=== PATIENT | male | born 1955 | race Caucasian/White ===

== ENCOUNTER → 2020-08-04 07:36 | Outpatient (BNVA) | payer BC, SELFPAY | PROVIDERS: PCP Internal Medicine; Referring Provider Internal Medicine; Visit Provider Internal Medicine | DX: Z13.89 Encounter for screening for other disorder (principal) ==

== ENCOUNTER 2020-08-25 09:10 | Outpatient (REF) | payer BC, SELFPAY ==
[2020-08-25 10:31] LABS: Estimated Average Glucose 148 mg/dL; Hemoglobin A1c % 6.8 %
[2020-08-25 10:43] LABS: Alanine Aminotransferase 35 U/L (0-40); Albumin Level 4.6 g/dL (3.5-5.0); Alkaline Phosphatase 45 U/L (39-117); Anion Gap 15 (12-20); Aspartate Amino Transferase 25 U/L (5-37); Bilirubin Total 0.8 mg/dL (0.0-1.0); Blood Urea Nitrogen 16 mg/dL (9-16); Calcium 9.5 mg/dL (8.4-10.2); Carbon Dioxide 25 mmol/L (22-29); Chloride 102 mmol/L (96-108); Cholesterol 173 mg/dL; Estimated Glomerular Filt Rate > 60; Glucose Random 110 mg/dL (60-115); HDL Cholesterol 54 mg/dL; LDL Cholesterol Calculated 92 mg/dl; Potassium 4.3 mmol/l (3.3-5.1); Sodium 138 mmol/L (135-145); Total Protein 7.6 g/dL (6.5-8.0); Triglycerides 135 mg/dL
[2020-08-25 10:53] LABS: Vitamin D 25-OH Total 37.4 ng/mL (>30)
[2020-08-25 11:33] LABS: Creatinine Urine 92.18 mg/dL; Microalbum/Creatinine Ratio Ur 11.9 ug/mg cr
[2020-08-26 08:06] LABS: LDL Cholesterol Direct 94 mg/dL (<100)
== END 2020-08-25 09:11 | disposition home or self-care (01) ==
LOC: HO.LAB 09:10
PROVIDERS: Absent Provider Internal Medicine; PCP Internal Medicine; Visit Provider Internal Medicine
DX: E11.65 Type 2 diabetes mellitus with hyperglycemia (principal); E67.3 Hypervitaminosis D
CPT/HCPCS: 80053; 80061; 82043; 82306; 83036; 83721

== ENCOUNTER 2020-10-04 06:51 | Outpatient (REF) | payer BC, SELFPAY ==
[2020-10-04 07:40] LABS: MANUAL DIFF FLAG NO
[2020-10-04 07:46] LABS: Basophils Percent Auto 0.7 % (0-2); Eosinophils Absolute Auto 0.2 X10*3/uL (0.0-0.4); Eosinophils Percent Auto 3.8 % (0-4); Hematocrit 43.6 % (42-52); Hemoglobin 14.7 g/dl (14.0-18.0); Imm Gran Abs Auto 0.02 X10*3/uL (0.00-0.03); Imm Gran Pct Auto 0.3 % (0.0-0.4); Lymphocytes Percent Auto 17.4 % (20-40); Mean Corpuscular HGB Conc 33.7 g/dl (31.0-36.0); Mean Corpuscular Hemoglobin 31.3 pg (27.0-33.0); Mean Platelet Volume 9.8 fL (9.4-12.4); Monocytes Absolute Auto 0.6 X10*3/uL (0.1-1.2); Monocytes Percent Auto 9.4 % (2-11); Neutrophils Percent Auto 68.4 % (45-73); Platelet Count 165 X10*3/uL (160-400); Red Blood Count 4.69 X10*6/uL (4.60-5.80); White Blood Count 5.9 X10*3/uL (4.8-10.8)
[2020-10-04 07:53] LABS: Glucose Urine UA >=1000 MG/DL (NEG); Leukocyte Esterase Urine NEG (NEG); Nitrite Urine NEG (NEG); Specific Gravity - Urine >= 1.030 (1.005-1.025); Urine Blood NEG (NEG); Urine Ketones NEG (NEG); Urine Protein NEG (NEG-TRACE)
[2020-10-04 07:57] LABS: Estimated Average Glucose 134 mg/dL; Hemoglobin A1c % 6.3 %
[2020-10-04 08:16] LABS: Appearance Urine CLEAR; Color Urine YELLOW
[2020-10-04 08:29] LABS: RBC Urine 0 /HPF (0); Squamous Epithelial Cell Urine TRACE /LPF; WBC Urine 0 /HPF (0-4)
[2020-10-04 08:33] LABS: Cholesterol 168 mg/dL; HDL Cholesterol 62 mg/dL; LDL Cholesterol Calculated 88 mg/dl; Triglycerides 92 mg/dL
[2020-10-04 08:37] LABS: Alanine Aminotransferase 21 U/L (0-40); Albumin Level 4.6 g/dL (3.5-5.0); Alkaline Phosphatase 43 U/L (39-117); Anion Gap 12 (12-20); Aspartate Amino Transferase 15 U/L (5-37); Bilirubin Total 0.7 mg/dL (0.0-1.0); Blood Urea Nitrogen 18 mg/dL (9-16); Calcium 9.5 mg/dL (8.4-10.2); Carbon Dioxide 28 mmol/L (22-29); Chloride 103 mmol/L (96-108); Estimated Glomerular Filt Rate > 60; Glucose Random 133 mg/dL (60-115); Potassium 4.2 mmol/L (3.3-5.1); Sodium 139 mmol/L (135-145); Total Protein 7.5 g/dL (6.5-8.0)
[2020-10-04 08:41] LABS: Creatinine Urine 98.69 mg/dL; Microalbum/Creatinine Ratio Ur 19.2 ug/mg cr
[2020-10-04 08:44] LABS: Vitamin D 25-OH Total 40.2 ng/mL (>30)
[2020-10-04 09:04] LABS: Prostate Specific Antigen Scr 0.36 ng/mL (<0.05-4.0)
[2020-10-04 10:21] LABS: Reflex LDLD? No
== END 2020-10-04 06:52 | disposition home or self-care (01) ==
LOC: HO.LAB 06:51
PROVIDERS: Absent Provider Internal Medicine; PCP Internal Medicine; Visit Provider Internal Medicine
DX: Z00.00 Encounter for general adult medical examination without abnormal findings (principal); E67.3 Hypervitaminosis D; E11.65 Type 2 diabetes mellitus with hyperglycemia; E78.00 Pure hypercholesterolemia, unspecified
CPT/HCPCS: 36415; 80053; 80061; 81001; 81003; 82043; 82306; 83036; 84153; 85025

== ENCOUNTER → 2020-11-10 07:14 | Outpatient (BNVA) | payer BC, SELFPAY | PROVIDERS: PCP Internal Medicine; Visit Provider Internal Medicine | DX: E11.65 Type 2 diabetes mellitus with hyperglycemia (principal); E78.5 Hyperlipidemia, unspecified; E67.3 Hypervitaminosis D; I10 Essential (primary) hypertension; Z79.4 Long term (current) use of insulin; Z71.3 Dietary counseling and surveillance | CPT/HCPCS: 82947 ==

== ENCOUNTER 2021-04-01 10:33 | Outpatient (REF) | payer BC, SELFPAY ==
[2021-04-01 11:05] LABS: Alanine Aminotransferase 36 U/L (0-40); Albumin Level 4.3 g/dL (3.5-5.0); Alkaline Phosphatase 47 U/L (39-117); Aspartate Amino Transferase 21 U/L (5-37); Bilirubin Direct 0.3 mg/dL (0.0-0.5); Bilirubin Total 0.8 mg/dL (0.0-1.0); Cholesterol 149 mg/dL; HDL Cholesterol 47 mg/dL; LDL Cholesterol Calculated 60 mg/dl; Total Protein 7.3 g/dL (6.5-8.0); Triglycerides 212 mg/dL
[2021-04-01 11:56] LABS: Reflex LDLD? No
== END 2021-04-01 10:34 | disposition home or self-care (01) ==
LOC: HO.LNP 10:33
PROVIDERS: Visit Provider Internal Medicine
DX: E11.9 Type 2 diabetes mellitus without complications (principal); E78.00 Pure hypercholesterolemia, unspecified
CPT/HCPCS: 80061; 80076

== ENCOUNTER → 2021-07-11 08:21 | Outpatient (BNVA) | payer BC, SELFPAY | PROVIDERS: PCP Internal Medicine; Visit Provider Internal Medicine | DX: E11.65 Type 2 diabetes mellitus with hyperglycemia (principal); E78.5 Hyperlipidemia, unspecified; E67.3 Hypervitaminosis D; I10 Essential (primary) hypertension | CPT/HCPCS: 82947; 83036 ==

== ENCOUNTER 2021-07-12 09:23 | Outpatient (REF) | payer BC, SELFPAY ==
[2021-07-12 11:13] LABS: Microalbum/Creatinine Ratio Ur 13.5 ug/mg cr
[2021-07-12 11:26] LABS: Alanine Aminotransferase 39 U/L (0-40); Albumin Level 4.6 g/dL (3.5-5.0); Alkaline Phosphatase 45 U/L (39-117); Anion Gap 13 (12-20); Aspartate Amino Transferase 22 U/L (5-37); Bilirubin Total 0.7 mg/dL (0.0-1.0); Blood Urea Nitrogen 12 mg/dL (9-16); Calcium 9.4 mg/dL (8.4-10.2); Carbon Dioxide 25 mmol/L (22-29); Chloride 103 mmol/L (96-108); Cholesterol 136 mg/dL; Estimated Glomerular Filt Rate > 60; Glucose Random 127 mg/dL (60-115); HDL Cholesterol 46 mg/dL; LDL Cholesterol Calculated 60 mg/dl; Potassium 4.1 mmol/L (3.3-5.1); Sodium 137 mmol/L (135-145); Total Protein 7.3 g/dL (6.5-8.0); Triglycerides 151 mg/dL
[2021-07-12 11:36] LABS: Vitamin D 25-OH Total 33.8 ng/mL (>30)
[2021-07-13 11:07] LABS: LDL Cholesterol Direct 66 mg/dL (<100)
== END 2021-07-12 09:24 | disposition home or self-care (01) ==
LOC: HO.LAB 09:23
PROVIDERS: PCP Internal Medicine; Referring Provider Internal Medicine; Visit Provider Internal Medicine
DX: E11.65 Type 2 diabetes mellitus with hyperglycemia (principal); E67.3 Hypervitaminosis D
CPT/HCPCS: 36415; 80053; 80061; 82043; 82306; 83721

== ENCOUNTER 2021-10-10 10:23 | Outpatient (REF) | payer BC, SELFPAY ==
[2021-10-10 10:45] LABS: Estimated Average Glucose 126 mg/dL
[2021-10-10 10:53] LABS: Alanine Aminotransferase 25 U/L (0-40); Albumin Level 4.4 g/dL (3.5-5.0); Alkaline Phosphatase 42 U/L (39-117); Aspartate Amino Transferase 16 U/L (5-37); Bilirubin Direct 0.3 mg/dL (0.0-0.5); Bilirubin Total 0.9 mg/dL (0.0-1.0); Cholesterol 141 mg/dL; Glucose Fasting 132 mg/dL (60-99); HDL Cholesterol 50 mg/dL; LDL Cholesterol Calculated 58 mg/dl; Total Protein 7.3 g/dL (6.5-8.0); Triglycerides 169 mg/dL
== END 2021-10-10 10:24 | disposition home or self-care (01) ==
LOC: HO.LNP 10:23
PROVIDERS: PCP Internal Medicine; Visit Provider Internal Medicine
DX: E78.00 Pure hypercholesterolemia, unspecified (principal); E11.9 Type 2 diabetes mellitus without complications
CPT/HCPCS: 80061; 80076; 82947; 83036

== ENCOUNTER → 2021-10-19 07:14 | Outpatient (BNVA) | payer BC, SELFPAY | PROVIDERS: PCP Internal Medicine; Visit Provider Internal Medicine | DX: E11.65 Type 2 diabetes mellitus with hyperglycemia (principal); E78.5 Hyperlipidemia, unspecified; I10 Essential (primary) hypertension | CPT/HCPCS: 82947 ==

== ENCOUNTER 2021-11-24 10:32 | Outpatient (REF) | payer BC, SELFPAY ==
[2021-11-24 10:35] LABS: MANUAL DIFF FLAG NO
[2021-11-24 11:04] LABS: Basophils Absolute Auto 0.1 X10*3/uL (0.0-0.2); Basophils Percent Auto 0.9 % (0-2); Eosinophils Absolute Auto 0.3 X10*3/uL (0.0-0.4); Hematocrit 43.5 % (42.0-52.0); Hemoglobin 14.3 g/dl (14.0-18.0); Imm Gran Abs Auto 0.05 X10*3/uL (0.00-0.03); Imm Gran Pct Auto 0.9 % (0.0-0.4); Lymphocytes Absolute Auto 1.3 X10*3/uL (1.2-4.9); Lymphocytes Percent Auto 23.6 % (20-40); Mean Corpuscular HGB Conc 32.9 g/dl (31.0-36.0); Mean Corpuscular Hemoglobin 31.2 pg (27.0-33.0); Mean Platelet Volume 10.5 fL (9.4-12.4); Monocytes Absolute Auto 0.6 X10*3/uL (0.1-1.2); Monocytes Percent Auto 11.3 % (2-11); Neutrophils Absolute Auto 3.2 x10*3/uL (2.0-8.3); Neutrophils Percent Auto 58.3 % (45-73); Platelet Count 148 X10*3/uL (160-400); Red Blood Count 4.58 X10*6/uL (4.60-5.80); Red Cell Distribution Width 12.3 % (11.0-16.0); White Blood Count 5.6 X10*3/uL (4.8-10.8)
[2021-11-24 11:16] LABS: Alanine Aminotransferase 36 U/L (0-40); Albumin Level 4.4 g/dL (3.5-5.0); Alkaline Phosphatase 44 U/L (39-117); Anion Gap 15 (12-20); Aspartate Amino Transferase 20 U/L (5-37); Bilirubin Total 0.6 mg/dL (0.0-1.0); Blood Urea Nitrogen 14 mg/dL (9-16); Calcium 9.4 mg/dL (8.4-10.2); Carbon Dioxide 25 mmol/L (22-29); Chloride 103 mmol/L (96-108); Estimated Glomerular Filt Rate > 60; Glucose Fasting 142 mg/dL (60-99); Potassium 4.3 mmol/L (3.3-5.1); Sodium 139 mmol/L (135-145); Total Protein 7.3 g/dL (6.5-8.0)
[2021-11-24 11:18] LABS: Appearance Urine CLEAR; Color Urine YELLOW; Glucose Urine UA NEG (NEG); Leukocyte Esterase Urine NEG (NEG); Nitrite Urine NEG (NEG); PH 5.5 (5.0-8.0); Specific Gravity - Urine >= 1.030 (1.005-1.025); Urine Blood NEG (NEG); Urine Ketones NEG (NEG); Urine Protein NEG (NEG-TRACE)
[2021-11-24 11:39] LABS: Prostate Specific Antigen 0.44 ng/mL (<0.05-4.0)
[2021-11-24 11:54] LABS: Creatinine Urine 90.65 mg/dL; Microalbum/Creatinine Ratio Ur 18.7 ug/mg cr
== END 2021-11-24 10:33 | disposition home or self-care (01) ==
LOC: HO.LNP 10:32
PROVIDERS: Visit Provider Internal Medicine
DX: Z00.00 Encounter for general adult medical examination without abnormal findings (principal); Z12.5 Encounter for screening for malignant neoplasm of prostate; E11.9 Type 2 diabetes mellitus without complications
CPT/HCPCS: 80053; 81003; 82043; 84153; 85025

== ENCOUNTER 2022-02-02 06:55 | Outpatient (REF) | payer BC, SELFPAY ==
[2022-02-02 07:31] LABS: Estimated Average Glucose 134 mg/dL; Hemoglobin A1c % 6.3 %
[2022-02-02 07:48] LABS: Alanine Aminotransferase 30 U/L (0-40); Albumin Level 4.5 g/dL (3.5-5.0); Alkaline Phosphatase 53 U/L (39-117); Anion Gap 13 (12-20); Aspartate Amino Transferase 20 U/L (5-37); Blood Urea Nitrogen 12 mg/dL (9-16); Calcium 9.5 mg/dL (8.4-10.2); Carbon Dioxide 27 mmol/L (22-29); Chloride 102 mmol/L (96-108); Estimated Glomerular Filt Rate > 60; Glucose Random 114 mg/dL (60-115); Sodium 138 mmol/L (135-145); Total Protein 7.4 g/dL (6.5-8.0)
[2022-02-02 08:31] LABS: Vitamin B12 492 pg/mL (200-900)
== END 2022-02-02 06:56 | disposition home or self-care (01) ==
LOC: HO.LAB 06:55
PROVIDERS: PCP Internal Medicine; Visit Provider Internal Medicine
DX: E11.65 Type 2 diabetes mellitus with hyperglycemia (principal)
CPT/HCPCS: 36415; 80053; 82607; 83036

== ENCOUNTER → 2022-05-08 07:51 | Outpatient (BNVA) | payer BC, SELFPAY | PROVIDERS: PCP Internal Medicine; Visit Provider Internal Medicine | DX: E11.65 Type 2 diabetes mellitus with hyperglycemia (principal); E78.5 Hyperlipidemia, unspecified; I10 Essential (primary) hypertension | CPT/HCPCS: 82947; 83036 ==

== ENCOUNTER 2022-05-25 11:56 | Outpatient (REF) | payer BC, SELFPAY ==
[2022-05-25 12:48] LABS: Alanine Aminotransferase 28 U/L (0-40); Albumin Level 4.5 g/dL (3.5-5.0); Alkaline Phosphatase 60 U/L (39-117); Aspartate Amino Transferase 18 U/L (5-37); Bilirubin Direct 0.2 mg/dL (0.0-0.5); Bilirubin Total 0.7 mg/dL (0.0-1.0); Cholesterol 178 mg/dL; Glucose Fasting 144 mg/dL (60-99); HDL Cholesterol 49 mg/dL; LDL Cholesterol Calculated 81 mg/dl; Total Protein 7.3 g/dL (6.5-8.0); Triglycerides 240 mg/dL
[2022-05-25 12:51] LABS: Estimated Average Glucose 134 mg/dL; Hemoglobin A1c % 6.3 %
[2022-05-25 14:40] LABS: Reflex LDLD? No
== END 2022-05-25 11:57 | disposition home or self-care (01) ==
LOC: HO.LNP 11:56
PROVIDERS: Visit Provider Internal Medicine
DX: E11.9 Type 2 diabetes mellitus without complications (principal); E78.00 Pure hypercholesterolemia, unspecified
CPT/HCPCS: 80061; 80076; 82947; 83036

== ENCOUNTER 2022-11-21 10:49 | Outpatient (REF) | payer BC, SELFPAY ==
[2022-11-21 10:53] LABS: MANUAL DIFF FLAG NO
[2022-11-21 11:16] LABS: Basophils Absolute Auto 0.1 X10*3/uL (0.0-0.2); Basophils Percent Auto 0.8 % (0-2); Eosinophils Absolute Auto 0.3 X10*3/uL (0.0-0.4); Eosinophils Percent Auto 4.4 % (0-4); Hematocrit 42.3 % (42.0-52.0); Hemoglobin 14.2 g/dl (14.0-18.0); Imm Gran Abs Auto 0.02 X10*3/uL (0.00-0.03); Imm Gran Pct Auto 0.3 % (0.0-0.4); Lymphocytes Absolute Auto 1.6 X10*3/uL (1.2-4.9); Lymphocytes Percent Auto 24.1 % (20-40); Mean Corpuscular HGB Conc 33.6 g/dl (31.0-36.0); Mean Corpuscular Hemoglobin 31.3 pg (27.0-33.0); Mean Corpuscular Volume 93.2 fL (80.0-98.0); Mean Platelet Volume 10.1 fL (9.4-12.4); Monocytes Absolute Auto 0.8 X10*3/uL (0.1-1.2); Monocytes Percent Auto 11.4 % (2-11); Neutrophils Absolute Auto 3.9 x10*3/uL (2.0-8.3); Platelet Count 165 X10*3/uL (160-400); Red Blood Count 4.54 X10*6/uL (4.60-5.80); Red Cell Distribution Width 12.2 % (11.0-16.0); White Blood Count 6.6 X10*3/uL (4.8-10.8)
[2022-11-21 11:18] LABS: Appearance Urine Clear; Color Urine Yellow; Glucose Urine UA >=1000 mg/dL (Negative); Leukocyte Esterase Urine Negative (Negative); Nitrite Urine Negative (Negative); PH 5.5 (5.0-9.0); Specific Gravity - Urine >= 1.030 (1.005-1.025); UMIC TRIGGER UACC YES; Urine Blood Negative (Negative); Urine Ketones Trace mg/dL (Negative); Urine Protein Negative (Neg-Trace)
[2022-11-21 11:24] LABS: Bacteria Urine None Seen (None Seen); Hyaline Casts Urine 0-2 /LPF (0-2); RBC Urine 0-2 /HPF (0-2); Squamous Epithelial Cell Urine 0-2 /HPF (0-2); WBC Urine 0-5 /HPF (0-5)
[2022-11-21 12:02] LABS: Alanine Aminotransferase 31 U/L (0-40); Albumin Level 4.1 g/dL (3.5-5.0); Alkaline Phosphatase 49 U/L (39-117); Anion Gap 13 (12-20); Aspartate Amino Transferase 20 U/L (5-37); Bilirubin Total 0.7 mg/dL (0.0-1.0); Blood Urea Nitrogen 14 mg/dL (9-16); Calcium 9.2 mg/dL (8.4-10.2); Carbon Dioxide 28 mmol/L (22-29); Chloride 104 mmol/L (96-108); Estimated Glomerular Filt Rate > 60; Glucose Fasting 96 mg/dL (60-99); Potassium 4.2 mmol/L (3.3-5.1); Sodium 141 mmol/L (135-145); Total Protein 6.6 g/dL (6.5-8.0)
[2022-11-21 12:14] LABS: Estimated Average Glucose 131 mg/dL; Hemoglobin A1c % 6.2 %
[2022-11-21 12:21] LABS: PSA,Total (Free>4and<10) 0.47 ng/mL (0.00-4.00)
== END 2022-11-21 10:50 | disposition home or self-care (01) ==
LOC: HO.LNP 10:49
PROVIDERS: Visit Provider Internal Medicine
DX: Z00.00 Encounter for general adult medical examination without abnormal findings (principal); Z12.5 Encounter for screening for malignant neoplasm of prostate; E11.9 Type 2 diabetes mellitus without complications; E78.00 Pure hypercholesterolemia, unspecified
CPT/HCPCS: 80053; 81001; 83036; 84153; 85025

== ENCOUNTER → 2023-02-21 08:45 | Outpatient (BNVA) | payer BC, SELFPAY | PROVIDERS: PCP Internal Medicine; Visit Provider Internal Medicine ==

== ENCOUNTER 2023-06-07 10:50 | Outpatient (REF) | payer BC, SELFPAY ==
[2023-06-07 11:48] LABS: Cholesterol 134 mg/dL (<200); HDL Cholesterol 44 mg/dL (>40); LDL Cholesterol Calculated 60 mg/dL (<100); Triglycerides 154 mg/dL (<150)
[2023-06-07 11:51] LABS: Alanine Aminotransferase 21 U/L (0-40); Albumin Level 4.4 g/dL (3.5-5.0); Alkaline Phosphatase 47 U/L (39-117); Aspartate Amino Transferase 16 U/L (5-37); Bilirubin Direct 0.2 mg/dL (0.0-0.5); Bilirubin Total 0.7 mg/dL (0.0-1.0); Glucose Fasting 102 mg/dL (60-99); Total Protein 7.6 g/dL (6.5-8.0)
[2023-06-07 11:59] LABS: Estimated Average Glucose 120 mg/dL; Hemoglobin A1C 140.5924 umol/L; Hemoglobin A1c % 5.8 % (<6.0)
[2023-06-07 12:20] LABS: Reflex LDLD? No
== END 2023-06-07 10:51 | disposition home or self-care (01) ==
LOC: HO.LNP 10:50
PROVIDERS: Visit Provider Internal Medicine
DX: E11.9 Type 2 diabetes mellitus without complications (principal); E78.00 Pure hypercholesterolemia, unspecified
CPT/HCPCS: 80061; 80076; 82947; 83036

== ENCOUNTER 2023-10-08 11:36 | Outpatient (REF) | payer BC, SELFPAY ==
[2023-10-08 14:43] LABS: Creatinine Urine 64.79 mg/dL; Microalbum/Creatinine Ratio Ur 21.6 ug/mg cr (<30)
== END 2023-10-08 11:37 | disposition home or self-care (01) ==
LOC: HO.LAB 11:36
PROVIDERS: PCP Internal Medicine; Visit Provider Internal Medicine Endocrinology, Diabetes & Metabolism
DX: E11.65 Type 2 diabetes mellitus with hyperglycemia (principal)
CPT/HCPCS: 82043; 82570

== ENCOUNTER 2023-10-11 14:46 | Outpatient (AMB) | payer BC, SELFPAY ==
--- NOTE | 2023-10-11 14:49 | MHC.OFFVIS ---
Intake Vital Signs 10/11/23 14:53 Height 5 ft 8 in Weight 234 lb 12.677 oz BMI 35.7 BP 148/70 H Blood Pressure Location Lt brachial Position Sitting Pulse 73 Pulse Source Pulse Oximeter Intake Visit Reasons: dm-lvm Intake Note: Patient presents today to follow up on D2MT. Last Diabetic Eye exam:08/2022 Last Podiatry Visit: 07/2023 Random Glucose: 123 mg/dl HgA1c: Jackscrew Worker Required: No Accompanied by: Self / Same As Patient Allergies No Known Allergies Allergy (Verified 10/11/23 14:56) Medication List - Last Reconciled 10/11/23 by Hubert Hardwick MD ascorbic acid (vitamin C) 1 g PO Q6H atorvastatin 40 mg PO BEDTIME blood sugar diagnostic (OneTouch Verio test strips) Three times a day dapagliflozin propanediol (Farxiga) 10 mg PO DAILY insulin degludec (Tresiba FlexTouch U-100 insulin) 18 units (0.18 mL) subcut DAILY 30 days insulin lispro (Humalog KwikPen (U-100) Insulin) 5 units (0.05 mL) subcut TID 90 days losartan 25 mg PO DAILY mecobalamin (vitamin B12) 1,000 mcg PO DAILY metformin 1,000 mg PO BID omega-3 fatty acids (Fish Oil Concentrate) 1,000 mg PO DAILY pen needle, diabetic (BD Ultra-Fine Micro Pen Needle) 2x daily pen needle, diabetic (BD Jennifer 2nd Gen Pen Needle) As directed tirzepatide (Mounjaro) 5 mg (0.5 mL) subcut QWEEK ubidecarenone-omega 3-vit E 25-150-200 mg-mg-unit (Co N-96-Dpzjxfy E-Fish Oil) 1 cap PO DAILY HPI HPI Comments History of Present Illness Details 68 YO M with PMHx T2DM, HLD who is seen in F/U for T2DM. The patient last saw Dr. Johnson 02/21/2023 Initially diagnosed with T2DM in 1997 on routine screening exam. Was initially started on treatment with Metformin. Began Insulin in 2020. Current regimen Metformin 1000 mg PO BID, Farxiga 10 mg PO daily, Mounjaro 5 mg PO once a week, Tresiba 18 units daily and Humalog 5 units Ac. Checks sugars 1x daily. Average sugar 136 with range -. 100% range Reports low sugars never. Family history of T2DM in Father and Brother. Denies a family history of Pancreatic Cancer. Has eyes checked yearly, last eye exam has appt 11/2023 No retinopathy. Denies Neuropathy, does not see podiatry. No Nephropathy, on Losartan 25 mg PO daily. UAC 18.7 11/24/2021. Has HLD, on Atorvastatin 40 mg PO daily. LDL 58 10/10/2021. Denies CAD. Weight: Stable. Completed CDE. Labs: Laboratory Tests 11/21/22 11/21/22 07:45 07:45 Creatinine 0.88 Estimated GFR > 60 Hemoglobin A1c % 6.2 [facility] Medical History HLD (hyperlipidemia) HTN (hypertension) Hypervitaminosis D T2DM (type 2 diabetes mellitus) Surgical History History of appendectomy History of nasal surgery Family History Father Diabetes Brother Diabetes Social History Household Members: None Alcohol intake: current Patient Tobacco Use Status: Never used Tobacco Physical Exam Vital Signs: Last Vital Signs Pulse 73 10/11/23 14:53 BP 148/70 H 10/11/23 14:53 BMI result Body Mass Index 35.7 Absence of Cushingoid features. Absence of acromegalic features. Neck exam reveals nl size thyroid about 15 gms. No thyroid nodules palpable. No carotid bruits present. Lungs CTA. Heart S1 S2, Reg R/R. No M/R/ G. Skin exam reveals absence of vitiligo or acanthosis nigricans. Abdominal exam reveals Soft NT/ND with NA BS. No organomegaly present. Neck Other: . Extrem Other: Visual exam of foot performed. No ulcerations or open lesions. No onchomycosis, no callouses.Pulses 2 + distally Sensation intact to monofilament exam. Vibratory sensation sensed is intact with 128 Hz tuning fork Results AMB Hemoglobin A1c AMB Hemoglobin A1c 6.6 % Last Edit by RADHA Jackson on 10/11/23 15:13 Results Reviewed Results Reviewed: Laboratory Last Values Glucose (Clinic) 123 mg/dL (60-115) H 10/11/23 15:00 Hgb A1c (Clinic) 6.6 % (4.0-6.0) H 10/11/23 15:04 Assessment & Plan Assessment & Plan (1) T2DM (type 2 diabetes mellitus): Code(s): E11.9 - Type 2 diabetes mellitus without complications Qualifiers: Diabetes mellitus complication status: with hyperglycemia Diabetes mellitus tank terminal gauger insulin use: without custodial use Qualified Code(s): E11.65 - Type 2 diabetes mellitus with hyperglycemia Plan: This 68-year-old white male with a history of type 2 diabetes being treated with metformin, Farxiga, Mounjaro and basal-bolus insulin with excellent glycemic control and no known microvascular or macrovascular complications. Plan is to continue the current therapy. I did iniatiate a Fernando 3 to look for occult hypoglycemia Orders: Orders AMB Hemoglobin A1c 10/11/23 E11.9 - Type 2 diabetes mellitus without complications, [id number] Coding Level of Care Code Est Pt Level 4 (67931) Diagnoses Type 2 diabetes mellitus with hyperglycemia, without long-term current use of insulin E11.65 Diabetes mellitus complication status: with hyperglycemia Diabetes mellitus custodial insulin use: without tank terminal gauger use
[2023-10-11 14:53] VITALS: BP 148/70; PULSE 73; BMI 35.7
[2023-10-11 15:04] LABS: Glucose, Whole Blood 123 mg/dL (60-115)
== END 2023-10-11 15:47 | disposition home or self-care (01) ==
PROVIDERS: PCP Internal Medicine; Visit Provider Internal Medicine Endocrinology, Diabetes & Metabolism
DX: E11.65 Type 2 diabetes mellitus with hyperglycemia (principal)
CPT/HCPCS: 99214

== ENCOUNTER 2023-11-27 11:15 | Outpatient (REF) | payer BC, SELFPAY ==
[2023-11-27 11:20] LABS: MANUAL DIFF FLAG NO
[2023-11-27 11:40] LABS: Basophils Absolute Auto 0.1 X10*3/uL (0.0-0.2); Basophils Percent Auto 0.9 % (0-2); Eosinophils Absolute Auto 0.3 X10*3/uL (0.0-0.4); Eosinophils Percent Auto 4.6 % (0-4); Hematocrit 44.3 % (42.0-52.0); Hemoglobin 14.9 g/dl (14.0-18.0); Imm Gran Abs Auto 0.02 X10*3/uL (0.00-0.03); Imm Gran Pct Auto 0.4 % (0.0-0.4); Lymphocytes Absolute Auto 1.4 X10*3/uL (1.2-4.9); Lymphocytes Percent Auto 23.9 % (20-40); Mean Corpuscular HGB Conc 33.6 g/dl (31.0-36.0); Mean Corpuscular Hemoglobin 31.6 pg (27.0-33.0); Mean Corpuscular Volume 93.9 fL (80.0-98.0); Monocytes Absolute Auto 0.6 X10*3/uL (0.1-1.2); Monocytes Percent Auto 11.1 % (2-11); Neutrophils Absolute Auto 3.4 x10*3/uL (2.0-8.3); Neutrophils Percent Auto 59.1 % (45-73); Platelet Count 157 X10*3/uL (160-400); Red Blood Count 4.72 X10*6/uL (4.60-5.80); Red Cell Distribution Width 12.7 % (11.0-16.0); White Blood Count 5.7 X10*3/uL (4.8-10.8)
[2023-11-27 11:45] LABS: Estimated Average Glucose 123 mg/dL; Hemoglobin A1C 151.5105 umol/L; Hemoglobin A1c % 5.9 % (<6.0)
[2023-11-27 11:48] LABS: Appearance Urine Clear; Color Urine Yellow; Glucose Urine UA >=1000 mg/dL (Negative); Leukocyte Esterase Urine Negative (Negative); Nitrite Urine Negative (Negative); Specific Gravity - Urine >= 1.030 (1.005-1.025); UMIC TRIGGER UACC YES; Urine Blood Negative (Negative); Urine Ketones Negative (Negative); Urine Protein Negative (Neg-Trace)
[2023-11-27 11:51] LABS: Alanine Aminotransferase 32 U/L (0-40); Albumin Level 4.1 g/dL (3.5-5.0); Alkaline Phosphatase 49 U/L (39-117); Anion Gap 13 (12-20); Aspartate Amino Transferase 19 U/L (5-37); Bilirubin Total 0.7 mg/dL (0.0-1.0); Blood Urea Nitrogen 14 mg/dL (9-16); Calcium 9.2 mg/dL (8.4-10.2); Carbon Dioxide 26 mmol/L (22-29); Chloride 107 mmol/L (96-108); Cholesterol 143 mg/dL (<200); Estimated Glomerular Filt Rate > 60; Glucose Fasting 110 mg/dL (60-99); HDL Cholesterol 49 mg/dL (>40); LDL Cholesterol Calculated 70 mg/dL (<100); Potassium 3.7 mmol/L (3.3-5.1); Sodium 142 mmol/L (135-145); Total Protein 7.1 g/dL (6.5-8.0); Triglycerides 124 mg/dL (<150)
[2023-11-27 11:54] LABS: Bacteria Urine None Seen (None Seen); Hyaline Casts Urine 0-2 /LPF (0-2); RBC Urine 0-2 /HPF (0-2); Squamous Epithelial Cell Urine 0-2 /HPF (0-2); WBC Urine 0-5 /HPF (0-5)
[2023-11-27 12:07] LABS: Creatinine Urine 118.02 mg/dL; Microalbum/Creatinine Ratio Ur 11.8 ug/mg cr (<30)
[2023-11-27 12:17] LABS: PSA,Total (Free>4and<10) 0.46 ng/mL (0.00-4.00)
== END 2023-11-27 11:16 | disposition home or self-care (01) ==
LOC: HO.LNP 11:15
PROVIDERS: Visit Provider Internal Medicine
DX: Z00.00 Encounter for general adult medical examination without abnormal findings (principal); Z12.5 Encounter for screening for malignant neoplasm of prostate; E11.9 Type 2 diabetes mellitus without complications; E78.00 Pure hypercholesterolemia, unspecified
CPT/HCPCS: 80053; 80061; 81001; 82043; 82570; 83036; 84153; 85025

== ENCOUNTER 2024-04-09 14:41 | Outpatient (AMB) | payer BC, SELFPAY ==
--- NOTE | 2024-04-09 14:52 | A.OFFVIS_ITS ---
Vital Signs 04/09/24 14:54 Height 5 ft 8 in Weight 227 lb 1.218 oz BMI 34.5 BP 128/78 Blood Pressure Location Rt brachial Position Sitting Pulse 86 Pulse Source Pulse Oximeter Intake Visit Reasons: DM/CONFIRMED Intake Note: Patient presents today to re-establish treatment on Type 2 Diabetes Mellitus: Last Diabetic Eye exam: 08/2023 Last Podiatry Exam: Does not see a Chicken Sexer Most recent HbA1c: 6.6%, 04/09/2024 Random Glucose- 124 mg/dL, Today Behavioral Health Technician Required: No Accompanied by: Self / Same As Patient Allergies No Known Allergies Allergy (Verified 04/09/24 14:57) HPI Comments Details: 69 year old with type 2 diabetes presenting for follow up Medical history: hyperlipidemia, hypertension PCP Dr Miramontes Initially diagnosed with T2DM in 1997 on routine screening exam. Was initially started on treatment with Metformin. Began Insulin in 2020. Current prescriptions: Metformin 1000 mg PO BID, Farxiga 10 mg PO daily, Mounjaro 5 mg PO once a week, Tresiba 18 units daily and Humalog 5 units Ac. Tells me infrequently takes humalog (only when having a large meal at a restaurant or gathering). He plays around with his tresiba dose based on fasting blood glucose. He will even skip a dose if morning glucose is in the 90s/100. Generally taking about 18 units 6-7 times per week. Glucose monitor attempted download but pulled September. Patient is checking his blood glucose once fasting and again in the afternoon if his am reading was high Denies hypoglycemia Family history of T2DM in Father and Brother. Denies a family history of Pancreatic Cancer. Last eye appt 11/2023 No retinopathy. Follows with podiastry No Nephropathy, on Losartan 25 mg PO daily. (-)alb/cr 11/2023 Has HLD, on Atorvastatin 40 mg PO daily. LDL 11/2013 Denies CAD. ROS see HPI PHYSICAL EXAM: GENERAL: Alert and oriented x 3. NAD EYES: EOMI. Anicteric. HENT: Moist mucous membranes. No scleral icterus. No cervical lymphadenopathy. LUNGS: Clear to auscultation bilaterally. CARDIOVASCULAR: Regular rate and rhythm. ABDOMEN: Soft, non-tender +bs EXTREMITIES: No edema. Non-tender. SKIN: No rashes or lesions. Warm. NEUROLOGIC: No focal neurological deficits. CN II-XII grossly intact PSYCHIATRIC: Cooperative. Appropriate mood and affect [facility] Medical History Hypervitaminosis D HLD (hyperlipidemia) HTN (hypertension) T2DM (type 2 diabetes mellitus) Surgical History History of appendectomy History of nasal surgery Family History Father Diabetes Brother Diabetes Social History Household Members: None Alcohol intake: current Patient Tobacco Use Status: Never used Tobacco Physical Exam Vital Signs: Last Vital Signs Pulse 86 04/09/24 14:54 BP 128/78 04/09/24 14:54 BMI result Body Mass Index 34.5 Results AMB Hemoglobin A1c AMB Hemoglobin A1c 6.6 % Last Edit by RADHA Penn on 04/09/24 15:19 Results Reviewed Results Reviewed: Laboratory Last Values Glucose (Clinic) 124 mg/dL (60-115) H 04/09/24 15:01 Assessment & Plan Assessment & Plan (1) T2DM (type 2 diabetes mellitus): Code(s): E11.9 - Type 2 diabetes mellitus without complications Category: Medical Qualifiers: Diabetes mellitus terminal superintendent insulin use: without terminal superintendent use Diabetes mellitus complication status: with hyperglycemia Qualified Code(s): E11.65 - Type 2 diabetes mellitus with hyperglycemia Plan: well controlled on current medications Discussed tresiba should be taken at same dose every day regardless of fasting am glucose. Since he will presumably not miss any doses will decrease the dose to 16units daily. Can continue short acting how he currently is Continue other medications as prescribed. (2) HTN (hypertension): Code(s): I10 - Essential (primary) hypertension Category: Medical Qualifiers: Hypertension type: unspecified Qualified Code(s): I10 - Essential (primary) hypertension Plan: Adequately controlled on current medication (3) HLD (hyperlipidemia): Code(s): E78.5 - Hyperlipidemia, unspecified Category: Medical Qualifiers: Hyperlipidemia type: unspecified Qualified Code(s): E78.5 - Hyperlipidemia, unspecified Plan: continue statin Orders: Orders Comprehensive Met. Panel 3 Months E11.65 - Type 2 diabetes mellitus with hyperglycemia, E78.5 - Hyperlipidemia, unspecified, I10 - Essential (primary) hypertension AMB Hemoglobin A1c Today .65 - Type 2 diabetes mellitus with hyperglycemia Hemoglobin A1c 3 Months E11.65 - Type 2 diabetes mellitus with hyperglycemia, E78.5 - Hyperlipidemia, unspecified, I10 - Essential (primary) hypertension Lipid Panel 3 Months . - Type 2 diabetes mellitus with hyperglycemia, E78.5 - Hyperlipidemia, unspecified, I10 - Essential (primary) hypertension Medications: Changed From insulin degludec (Tresiba FlexTouch U-100 insulin) 18 units (0.18 mL) subcut DAILY 15 mL 5RF E11. - Type 2 diabetes mellitus with hyperglycemia To Tresiba FlexTouch U-100 (insulin degludec) 16 units (0.16 mL) subcut DAILY 15 mL 5RF NS .65 - Type 2 diabetes mellitus with hyperglycemia Coding Level of Care Code Est Pt Level 4 (74010) Diagnoses Type 2 diabetes mellitus with hyperglycemia, without long-term current use of insulin Diabetes mellitus nursing home insulin use: without nursing home use Diabetes mellitus complication status: with hyperglycemia Hypertension, unspecified type I10 Hypertension type: unspecified Hyperlipidemia, unspecified hyperlipidemia type E78.5 Hyperlipidemia type: unspecified
[2024-04-09 14:54] VITALS: BP 128/78; PULSE 86; BMI 34.5
[2024-04-09 15:05] LABS: Glucose, Whole Blood 124 mg/dL (60-115)
== END 2024-04-09 15:31 | disposition home or self-care (01) ==
PROVIDERS: PCP Internal Medicine; Visit Provider Internal Medicine
DX: E11.65 Type 2 diabetes mellitus with hyperglycemia (principal); I10 Essential (primary) hypertension; E78.5 Hyperlipidemia, unspecified
CPT/HCPCS: 99214

== ENCOUNTER → 2024-04-09 14:41 | Outpatient (BNVA) | payer BC, SELFPAY | PROVIDERS: PCP Internal Medicine; Visit Provider Internal Medicine | DX: E11.65 Type 2 diabetes mellitus with hyperglycemia (principal); I10 Essential (primary) hypertension; E78.5 Hyperlipidemia, unspecified; Z79.4 Long term (current) use of insulin | CPT/HCPCS: 82947; 83036 ==

== ENCOUNTER 2024-07-16 12:03 | Day surgery (SDC) | payer BC, SELFPAY ==
[2024-07-14 14:13] VITALS: BMI 34.2
--- NOTE | 2024-07-15 08:55 | P.CONAN_ITS ---
Documented by User: Marina Parsons NP 07/15/24 08:56 HPI - Anesthesia Eval Consult details Narrative: 69yo M for Colonoscopy Anesthesia Pre-Procedure Meds Is the patient on any of the following meds?: GLP1/DPP4 and SGLT2 Inhib PMFSH Active Problems Active Problems: All Active Problems Hypervitaminosis D (Acute) HLD (hyperlipidemia) (Acute) HTN (hypertension) (Acute) T2DM (type 2 diabetes mellitus) (Acute) Past Medical History Medical History Melanoma Hypervitaminosis D HLD (hyperlipidemia) HTN (hypertension) T2DM (type 2 diabetes mellitus) Family History Family History Father Diabetes Brother Diabetes Surgical History Surgical History H/O colonoscopy History of appendectomy History of nasal surgery Social History Social History Household Members: None Household Members Other:: lives alone Are you a primary critical care transport nurse to a significant other at home: No Do you presently have visiting nurse or other home services: No Alcohol intake: current Patient Tobacco Use Status: Never used Tobacco Use of substances other than those prescribed or required for medical reasons: No Have you been hit, kicked, punched, or otherwise hurt by someone within the past year? If so, by whom?: No Are you DNR?: No Advance Directives: No Advance Directives Information Provided: Yes Recently lost weight without trying: No Nutrition Risks: No Nutritional Risk Meds Allergies Allergy/AdvReac Type Severity Reaction Status Date / Time No Known Allergies Allergy Verified 04/09/24 14:57 Home Medications ?Medication ?Instructions ?Recorded ?Confirmed ?Last Taken ?Type atorvastatin 40 mg tablet 40 mg PO BEDTIME 08/04/20 07/14/24 Unknown History losartan 25 mg tablet 25 mg PO DAILY 08/04/20 07/14/24 Unknown History omega-3 fatty acids 1,000 mg 1,000 mg PO DAILY 08/04/20 07/14/24 Unknown History capsule (Fish Oil Concentrate) pen needle, diabetic 32 gauge x #50 ea 07/11/21 02/21/23 Unknown History (BD Jennifer 2nd Gen Pen Needle) mecobalamin (vitamin B12) 1,000 1,000 mcg PO DAILY 05/08/22 07/14/24 Unknown History mcg lozenges Bifidobacterium infantis 4 mg 4 mg PO DAILY 07/14/24 07/14/24 Unknown History capsule (Align) Vitamin C With Karen Hips 1 cap PO DAILY 07/14/24 07/14/24 Unknown History coenzyme Q10 10 mg capsule (Co 10 mg PO DAILY 07/14/24 07/14/24 Unknown History Q-10) collagen,hydrolysate 500 mg-biotin 1 cap PO DAILY 07/14/24 07/14/24 Unknown History 800 mcg-ascorbic acid 50 mg capsule (Collagen 1500 Plus C) flaxseed oil 1,000 mg capsule 1,000 mg PO DAILY 07/14/24 07/14/24 Unknown History guar gum 1 gram chewable tablet g 07/14/24 Unknown History insulin degludec 100 unit/mL (3 18 unit subcut DAILY 07/14/24 07/14/24 Unknown History mL) subcutaneous pen (Tresiba FlexTouch U-100 insulin) vitamins A,C,W-ernn-zgqlof 2,148 2 tab PO BID 07/14/24 07/14/24 Unknown History mcg-113 mg-45 mg-17.4 mg tablet (PreserVision AREDS) Exam Height,Weight and Vital Signs: Height 5 ft 8 in Weight 102.058 kg Assessment and Plan Assessment Anesthesia Assessment: Chart Reviewed Documented by User: Kalpana Caro MD 07/16/24 13:44 [facility] Past Medical History Medical History Melanoma Hypervitaminosis D HLD (hyperlipidemia) HTN (hypertension) T2DM (type 2 diabetes mellitus) Family History Family History Father Diabetes Brother Diabetes Family history of problems with anesthesia: No Surgical History Surgical History H/O colonoscopy History of appendectomy History of nasal surgery History of Problems with Anesthesia: No Social History Social History Household Members: None Household Members Other:: lives alone Are you a primary critical care transport nurse to a significant other at home: No Do you presently have visiting nurse or other home services: No Alcohol intake: current Patient Tobacco Use Status: Never used Tobacco Use of substances other than those prescribed or required for medical reasons: No Have you been hit, kicked, punched, or otherwise hurt by someone within the past year? If so, by whom?: No Are you DNR?: No Advance Directives: No Advance Directives Information Provided: Yes Recently lost weight without trying: No Nutrition Risks: No Nutritional Risk Meds Allergies Allergy/AdvReac Type Severity Reaction Status Date / Time No Known Allergies Allergy Verified 04/09/24 14:57 Home Medications ?Medication ?Instructions ?Recorded ?Confirmed ?Last Taken ?Type atorvastatin 40 mg tablet 40 mg PO BEDTIME 08/04/20 07/14/24 Unknown History losartan 25 mg tablet 25 mg PO DAILY 08/04/20 07/14/24 Unknown History omega-3 fatty acids 1,000 mg 1,000 mg PO DAILY 08/04/20 07/14/24 Unknown History capsule (Fish Oil Concentrate) pen needle, diabetic 32 gauge x #50 ea 07/11/21 02/21/23 Unknown History (BD Jennifer 2nd Gen Pen Needle) mecobalamin (vitamin B12) 1,000 1,000 mcg PO DAILY 05/08/22 07/14/24 Unknown History mcg lozenges Bifidobacterium infantis 4 mg 4 mg PO DAILY 07/14/24 07/14/24 Unknown History capsule (Align) Vitamin C With Karen Hips 1 cap PO DAILY 07/14/24 07/14/24 Unknown History coenzyme Q10 10 mg capsule (Co 10 mg PO DAILY 07/14/24 07/14/24 Unknown History Q-10) collagen,hydrolysate 500 mg-biotin 1 cap PO DAILY 07/14/24 07/14/24 Unknown History 800 mcg-ascorbic acid 50 mg capsule (Collagen 1500 Plus C) flaxseed oil 1,000 mg capsule 1,000 mg PO DAILY 07/14/24 07/14/24 Unknown Hi story guar gum 1 gram chewable tablet g 07/14/24 Unknown History insulin degludec 100 unit/mL (3 18 unit subcut DAILY 07/14/24 07/14/24 Unknown History mL) subcutaneous pen (Tresiba FlexTouch U-100 insulin) vitamins A,C,D-ubig-iqbbxk 2,148 2 tab PO BID 07/14/24 07/14/24 Unknown History mcg-113 mg-45 mg-17.4 mg tablet (PreserVision AREDS) Exam Airway Mallampati Class: II TM Dist: >3cm Neck ROM: Full Heart: rrr Lungs: cta Assessment and Plan Assessment Anesthesia Assessment: Anesthesia Plan Discussed Final Anesthetic Review Family History of Problems with Anesthesia: No History of Problems with Anesthesia: No NPO: Yes ASA Class: III Final Preanesthetic Review: No Changes in Pt Med Stat, Meds/Allgs Chart Reviewed and Consent Obtained/Reviewed Patient Risk: Intermediate Procedure Risk: Low Anesthetic Plan Anesthetic Plan: MAC: Disposition: Standard PACU
[2024-07-16 12:32] VITALS: BMI 34.1
[2024-07-16 12:48] VITALS: BP 120/63; PULSE 73; RESP 18; TEMP 36.2; O2SAT 95
[2024-07-16] MEDS: Lactated Ringers 1,000 ML 100 ML IVCONT (12:57)
[2024-07-16 13:08] LABS: Glucose, Whole Blood 141 mg/dL (60-115)
--- NOTE | 2024-07-16 13:58 | MHC.SHP ---
Pre-Procedural Eval Section A - 24 Hr Update-Section A only Date of Service: 07/16/24 The patient is an INPATIENT: No Changes since office visit: No Cold of Flu in the past 2 weeks, No New Medical Problems, No Changes in Medication and No Patient answered all questions The patient has been examined within 24 hours of the surgical procedure. The History & Physical has been completed within 30 days and I have reviewed it.: Yes Section B - Complete if H&P > 30 days Chief Complaint: screening Allergies: Allergies Allergy/AdvReac Type Severity Reaction Status Date / Time No Known Allergies Allergy Verified 04/09/24 14:57 Plan I have reviewed the history and physical and performed a pertinent physical examination on my patient. No changes have occurred unless specified. Time Spent With Patient Time: Total time managing care of this patient today ____ minutes.
[2024-07-16 14:35] VITALS: BP 98/52; PULSE 79; RESP 16; TEMP 36.2; O2SAT 97
[2024-07-16 14:50] VITALS: BP 126/73; PULSE 79; RESP 16; TEMP 36.2; O2SAT 97
--- NOTE | 2024-07-16 15:14 | OP_ITS ---
cc: Fernando Waggoner MD~ DATE OF SERVICE: 07/16/2024 SURGEON: Lance Cabello MD INDICATIONS: Colon cancer screening and prior history of adenomatous colon polyps. PREOPERATIVE DIAGNOSIS: POSTOPERATIVE DIAGNOSIS: PROCEDURE PERFORMED: Colonoscopy to the cecum with biopsy. ESTIMATED BLOOD LOSS: COMPLICATIONS: ANESTHESIA: Monitored anesthesia care. ASSISTANTS: SPECIMENS: DESCRIPTION OF PROCEDURE: A history and physical was performed. The risks and benefits of the procedure were explained to the patient and informed consent was obtained. The patient was placed in the left lateral decubitus position. A digital rectal exam was performed and was found to be normal. The Olympus pediatric video colonoscope was introduced into the rectum and advanced to the cecum. The cecum was identified by transillumination, palpation, and identification of ileocecal valve. Examination was performed and the scope was removed. He tolerated the procedure well and was returned to recovery area in stable condition. FINDINGS: The terminal ileum was not examined. The visualized colonic mucosa was normal. The quality of the prep was good. Two polyps were identified. The 1st was located in the cecum. The 2nd was just below the ileocecal valve. Both measured less than 5 mm and were removed with biopsy forceps. No other polyps were seen. Retroflexed examination showed moderate-sized internal hemorrhoids. IMPRESSION: Colon polyps. RECOMMENDATION: Follow up the biopsy results. MD BLAKE Thomas/LAURA / [id number] MTDD
== END 2024-07-16 15:23 | disposition home or self-care (01) ==
PROVIDERS: PCP Internal Medicine; Visit Provider Internal Medicine Gastroenterology
PROC: 0DJD8ZZ Inspection of Lower Intestinal Tract, Via Natural or Artificial Opening Endoscopic (ICD-10-PCS; CPT 45378; principal; 2024-07-16 14:00)
DX: Z12.11 Encounter for screening for malignant neoplasm of colon (principal); Z86.0101 Personal history of adenomatous and serrated colon polyps; Z83.719 Family history of colon polyps, unspecified; D12.0 Benign neoplasm of cecum; K64.8 Other hemorrhoids; K58.0 Irritable bowel syndrome with diarrhea; I10 Essential (primary) hypertension; E78.5 Hyperlipidemia, unspecified; E11.9 Type 2 diabetes mellitus without complications; Z85.820 Personal history of malignant melanoma of skin; Z79.899 Other long term (current) drug therapy; Z79.84 Long term (current) use of oral hypoglycemic drugs; Z79.85 Long-term (current) use of injectable non-insulin antidiabetic drugs; Z98.890 Other specified postprocedural states
CPT/HCPCS: 45380; 82947; 88305; J2003; J2704

== ENCOUNTER 2024-08-04 10:56 | Outpatient (REF) | payer BC, SELFPAY ==
[2024-08-04 11:42] LABS: Estimated Average Glucose 143 mg/dL; Hemoglobin A1C 185.4581 umol/L; Hemoglobin A1c % 6.6 % (<6.0); Total Hemoglobin (HGBA1C) 3778.8929 umol/L
[2024-08-04 11:44] LABS: Alanine Aminotransferase 50 U/L (0-40); Albumin Level 4.2 g/dL (3.5-5.0); Alkaline Phosphatase 50 U/L (39-117); Aspartate Amino Transferase 36 U/L (5-37); Bilirubin Direct 0.3 mg/dL (0.0-0.5); Bilirubin Total 0.9 mg/dL (0.0-1.0); Cholesterol 148 mg/dL (<200); Glucose Fasting 97 mg/dL (60-99); HDL Cholesterol 52 mg/dL (>40); LDL Cholesterol Calculated 58 mg/dL (<100); Total Protein 7.4 g/dL (6.5-8.0); Triglycerides 194 mg/dL (<150)
[2024-08-04 12:21] LABS: Reflex LDLD? No
--- OUTSIDE RECORDS SUMMARY | 2024-08-06 14:51 | XMS_ITS ---
Author Organization [facility] Address [address] [place] [phone] Care Team Providers Care Clerical Manager Name Role Phone Fernando Waggoner MD Primary Care Provider Lance Mohamud Jr Unavailable ALLERGIES No Known Allergies REASON FOR VISIT Patient presents today for a colon screening MEDICATIONS Medication SIG (Take, Route, Frequency, Duration) Notes Start Date End Date Status Align - as directed Orally 06/23/2024 Active Fiber (Guar Gum) - as directed Orally 06/23/2024 Active PreserVision AREDS - as directed Orally 06/23/2024 Active Co Q 10 10 MG as directed Orally 06/23/2024 Active Vitamin C & D3/Karen Hips 500-1000-20 MG-UNIT-MG as directed Orally 06/23/2024 Active Fish Oil + D3 6907-1504 MG-UNIT 1 capsule Orally Once a day for 30 day(s) 06/23/2024 Active Super B Complex - as directed Orally 06/23/2024 Active Atorvastatin Calcium 40 MG TAKE 1 TABLET BY MOUTH EVERY DAY Oral for 90 Active metFORMIN HCl 1000 MG Oral for 90 Active Flaxseed Oil 1400 MG as directed Orally 06/23/2024 Active Tresiba FlexTouch 100 UNIT/ML INJECT 18 UNIT (0.18 ML) SUBCUTANEOUSLY DAILY Subcutaneous for 83 Active Collagen 500 MG as directed Orally 06/23/2024 Active Mounjaro 5 MG/0.5ML Subcutaneous for 28 Active Farxiga 10 MG TAKE 1 TABLET BY OVI TH EVERY DAY Oral for 90 Active Losartan Potassium 25 MG Oral for 90 Active MiraLax (colon prep) 17 GM/SCOOP mixed with Gatorade or Crystal Light Orally begin at 5:00 p.m. the day before the procedure for 1 day 06/23/2024 Active IMMUNIZATIONS Vaccine Route Administration Date Status Comme nts Influenza Unknown 06/23/2024 Refused SOCIAL HISTORY Tobacco Use: Social History Observation Description Date Details (start date - stop date) Never Smoker NA - NA Sex Assigned At : Social History Observation Description Sex Assigned At Unknown Tobacco Use/Smoking Question Answer Notes Patient is a nonsmoker Alcohol Screen Question Answer Notes Did you have a drink contain ing alcohol in the past year? Yes How often did you have a dri nk containing alcohol in the past year? 2 to 3 times a week (3 points) How many drinks did you have on a typical day when you were drinking in the past year? 1 or 2 drinks (0 point) How often did you have 6 or more drinks on one occasion in the past year? 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) Active confirmed 760817633163372 VITAL SIGNS BMI 34.28 kg/m2 06/23/2024 Blood pressure systolic 000 mm Hg 06/23/20 24 Blood pressure diastolic 00 mm Hg 024 Height 5 ft 8 in in 06/23/2024 Temperature 99.3 degrees Fahrenheit 06/23/20 24 Weight 225 lb 8 oz lbs 06/23/2024 Encounters Encounter Location Date Provider Diagnosis [facility] [address] [place] [id number] 06/23/2024 Lance Cabello Jr Colon cancer screening Z12.11 ; Encounter for other preprocedural examination Z01.818 and [facility] (current) use of oral hypoglycemic drugs Z79.84 ASSESSMENTS Encounter Date Diagnosis Assessment Notes Treatment Notes Treatment Clinical Notes 06/23/2024 Colon cancer screening (ICD-10 - Z12.11) Colonoscopy material was printed 06/23/2024 Encounter for other preprocedural examination (ICD-10 - Z01.818) 06/23/2024 [facility] (current) use of oral hypoglycemic drugs (ICD-10 - Z79.84) PLAN OF TREATMENT Medication Medication Name Sig Start Date Stop Date Notes MiraLax (colon prep) 17 GM/SCOOP mixed with Gatorade or Crystal Light Orally begin at 5:00 p.m. the day before the procedure for 1 day 06/23/2024 Treatment Notes Assessment Notes Colon cancer screening Colonoscopy mater ial was printed Future Test Test Name Order Date COLONOSCOPY 06/23/2024 Next Appt Details Follow Up: 1 Year, Reason: Progress Notes * Examination Category Sub-Category Detail Notes General Examination GENERAL APPEARANCE: in no ac maira distress HEAD: normocephalic EYES: sclera non-icteric NECK/THYROID: no lymphadenopathy HEART: S1, S2 normal, no mu rmurs CHEST: normal shape and exp ansion LUNGS: clear to auscultatio n bilaterally ABDOMEN: soft, nontender, non distended, bowel sounds present, no organomegaly SKIN: anicteric EXTREMITIES: no clubbing, cyanosi s, or edema PSYCH: cognitive function i ntact ORAL CAVITY: mucosa moist
--- OUTSIDE RECORDS SUMMARY | 2024-08-06 14:51 | XMS_ITS ---
Author Organization [facility] Address [address] [place] [address] Care Team Providers Care Cake Batter Mixer Name Role Phone Fernando Waggoner MD Primary Care Provider Lance Mohamud Jr [phone] REASON FOR VISIT screening Encounters Encounter Location Date Provider Diagnosis [facility] [address] [place] [phone] 07/16/2024 Lance Cabello Jr Colon cancer screening Z12.11 and Personal history of colonic polyps Z86.0100 ASSESSMENTS Encounter Date Diagnosis Assessment Notes Treatment Notes Treatment Clinical Notes 07/16/2024 Colon cancer screening (ICD-10 - Z12.11) 07/16/2024 Personal history of colonic polyps (ICD-10 - Z86.0100) PLAN OF TREATMENT No Information
--- OUTSIDE RECORDS SUMMARY | 2024-08-06 14:51 | XMS_ITS ---
Author Organization [facility] Address [address] [place] [phone] Care Team Providers Care Production Officer Name Role Phone Fernando Waggoner MD Primary Care Provider Efrain Cabello Jr, Lance Andino REASON FOR VISIT pathology Encounters Encounter Location Date Provider Diagnosis [facility] [address] [place] [phone] 07/23/2024 Lance Cabello Jr PLAN OF TREATMENT No Information
--- OUTSIDE RECORDS SUMMARY | 2024-08-06 14:52 | XMS_ITS ---
Author Organization Fernando Waggoner MD Address [address] [place] [phone] Care Team Providers Care Floor Covering Installer Name Role Phone Fernando Waggoner Primary Care Provider RESULTS Component Value Reference Range Notes Complete Blood Count Auto Di ff Reviewed date:11/27/2023 12:39:22 PM Interpretation: Performing Lab:[facility], [address] [place] [phone] Notes/Report: White Blood Count 5.7 4.8-10.8 X10*3/uL Red Blood Count 4.72 4.60-5.80 X10*6/uL Hemoglobin 14.9 14.0-18.0 g/dl Hematocrit 44.3 42.0-52.0 % Mean Corpuscular Volume 93.9 80.0-98.0 fL Mean Corpuscular Hemoglobin 31.6 27.0-33.0 pg Mean Corpuscular HGB Conc 33.6 31.0-36.0 g/dl Red Cell Distribution Width 12.7 11.0-16.0 % Platelet Count 157 160-400 X10*3/uL Mean Platelet Volume 10.0 9.4-12.4 fL Neutrophils Percent Auto 59.1 45-73 % Imm Gran Pct Auto 0.4 0.0-0.4 % Lymphocytes Percent Auto 23.9 20-40 % Monocytes Percent Auto 11.1 2-11 % Eosinophils Percent Auto 4.6 0-4 % Basophils Percent Auto 0.9 0-2 % NRBC Pct Auto 0.0 0.0-0.2 /100WBC Neutrophils Absolute Auto 3.4 2.0-8.3 x10*3/u L Imm Gran Abs Auto 0.02 0.00-0.03 X10*3/uL Lymphocytes Absolute Auto 1.4 1.2-4.9 X10*3/u L Monocytes Absolute Auto 0.6 0.1-1.2 X10*3/uL Eosinophils Absolute Auto 0.3 0.0-0.4 X10*3/u L Basophils Absolute Auto 0.1 0.0-0.2 X10*3/uL NRBC Abs Auto 0.000 0.0-0.012 X10*3/uL Comprehensive Penn. Panel Fa st Reviewed date:11/27/2023 12:31:25 PM Interpretation: Performing Lab:[facility], [address] [place] [phone] Notes/Report: Sodium 142 135-145 mmol/L Potassium 3.7 3.3-5.1 mmol/L Chloride 107 96-108 mmol/L Carbon Dioxide 26 22-29 mmol/L Anion Gap 13 12-20 Blood Urea Nitrogen 14 9-16 mg/dL Creatinine 0.82 0.5-1.4 mg/dL Estimated Glomerular Filt Rate > 60 NOTE: For -[place] individuals, multiply the result by 1.210. Chronic Kidney Disease: Estimated GFR < 60 mL/min/1.73m2 Severe Kidney Disease: Estimated GFR < 15 mL/min/1.73m2 Glucose Fasting 110 60-99 mg/dL A fasting glucose from 100-125 mg/dl is considered impaired (pre-diabetes). Calcium 9.2 8.4-10.2 mg/dL Bilirubin Total 0.7 0.0-1.0 mg/dL Aspartate Amino Transferase 19 5-37 U/L Alanine Aminotransferase 32 0-40 U/L Total Protein 7.1 6.5-8.0 g/dL Albumin Level 4.1 3.5-5.0 g/dL Alkaline Phosphatase 49 39-117 U/L Lipid Panel Reviewed date:11/27/2023 12:31:33 PM Interpretation: Performing Lab:[facility], [address] [place] [phone] Notes/Report: Triglycerides 124 <150 mg/dL Desirable Triglyceride: less than 150 mg/dL Borderline High Triglyceride 150-199 mg/dL High Triglyceride: 200-499 mg/dL Very High Triglyceride: greater than or equal to 5OO mg/dL Cholesterol 143 <200 mg/dL Desirable Cholesterol: less than 200 mg/dL Borderline High Cholesterol: 200-239 mg/dL High Cholesterol: greater than 239 mg/dL LDL Cholesterol Calculated 70 <100 mg/dL Desirable LDL: less than 100 mg/dL Near Optimal/Above Optimal LDL: 110-129 mg/dL Borderline High LDL: 130-159 mg/dL High LDL: 160-189 mg/dL Very High LDL: greater than or equal to 190 mg/dL HDL Cholesterol 49 >40 mg/dL Desirable HDL: greater than 40 mg/dL Note: This HDL assay may give artificially low results in patients with liver disease. PSA,Total (Free>4and<10) Reviewed date:11/27/2023 12:35:54 PM Interpretation: Performing Lab:[facility], [address] [place] [phone] Notes/Report: PSA,Total (Free>4and<10) 0.46 0.00-4.00 ng/mL A Free PSA was not performed: The percentage of Free PSA can be used to enhance the differentiation of prostate cancer from benign prostatic disease in subjects whose PSA levels are between 4.0 and 10.0 ng/mL. For subjects whose PSA levels are below 4.0 or above 10.0 ng/mL, the risk of prostate cancer is determined on the basis of the PSA alone. Therefore the % Free PSA is recommended only for those subjects whose PSA levels are between 4.0 and 10.0 ng/mL. PSA methodology: Gautam Alinity i Chemiluminescent Microparticle Immunoassay (CMIA) Microalbumin, Random Reviewed date:11/27/2023 12:36:06 PM Interpretation: Performing Lab:[facility], [address] [place] [phone] Notes/Report: Creatinine Urine 118.02 Microalbumin Urine 14.0 Microalbum/Creatinine Ratio Ur 11.8 <30 ug/mg cr Albumin/Creatinine Ratio Reference Ranges: Normal: < 30 ug/mg creatinine Microalbuminuria: 30 - 300 ug/mg creatinine Clinical Albuminuria: > 300 ug/mg creatinine Hemoglobin A1c Reviewed date:11/27/2023 12:31:04 PM Interpretation: Performing Lab:[facility], [address] [place] [phone] Notes/Report: Hemoglobin A1c % 5.9 <6.0 % Hemoglobin A1C Reference Range Adults: 4.8 - 6.0 % Non diabetic: < 6.0 % Goal: < 7.0 % Additional Action Suggested: > 8.0 % Note: Hemoglobin A1c results are invalid for patients with abnormal amounts of HbF. Blood transfusions may impact the HbA1c concentration in the patient sample. Estimated Average Glucose 123 eAG = Estimated average glucose which is %A1C expressed as average glucose, using the formula of the V1G-Zymfskc Average Glucose study (ADAG), Diabetes Care, Vol.31,#8, Mar. 2007 UA ClnCatch+Micro w/rflx Cul t Reviewed date:11/27/2023 12:30:54 PM Interpretation: Performing Lab:[facility], [address] [place] [phone] Notes/Report: Urine, Clean Catch Color Urine Yellow Appearance Urine Clear PH 5.0 5.0-9.0 Glucose Urine UA >=1000 Negative mg/dL Urine Blood Negative Negative Specific [place] - Urine >= 1.030 1.005-1.025 Urine Protein Negative Neg-Trace mg/dL Urine Ketones Negative Negative mg/dL Nitrite Urine Negative Negative Leukocyte Esterase Urine Negative Negative RBC Urine 0-2 0-2 /HPF WBC Urine 0-5 0-5 /HPF Squamous Epithelial Cell Urine 0-2 0-2 /HPF Bacteria Urine None Seen None Seen Hyaline Casts Urine 0-2 0-2 /LPF REASON FOR VISIT yearly labs Encounters Encounter Location Date Provider Diagnosis Fernando Waggoner MD [address] [place], [place] [phone] 11/27/2023 Fernando Waggoner Blood tests for rout ine general physical examination Z00.00 ; Type 2 diabetes mellitus without complication, without long-term current use of insulin E11.9 and Pure hypercholesterolemia E78.00 ASSESSMENTS Encounter Date Diagnosis Assessment Notes Treatment Notes Treatment Clinical Notes 11/27/[address] ine general physical examination (ICD-10 - Z00.00) 11/27/2023 Type 2 diabetes alvaro itus without complication, without long-term current use of insulin (ICD-10 - E11.9) 11/27/2023 Pure hypercholestero lemia (ICD-10 - E78.00) PLAN OF TREATMENT Next Appt Details Provider Name:Fernando nina, 08/11/2024 03:00:00 PM, [address] [place] [address], [address], [place], [phone], Provider Name:Fernando nina, 01/20/2025 07:15:00 AM, [address] [place] [address], [address], [place], [phone], Provider Name:Fernando nina, 01/26/2025 02:30:00 PM, [address] [place] [address], [address], [place], [phone],
--- OUTSIDE RECORDS SUMMARY | 2024-08-06 14:52 | XMS_ITS | Patient Health Record ---
Author Organization Fernando Waggoner MD Address [address] [place] [phone] Care Team Providers Care Quality Control Systems Manager Name Role Phone Fernando Waggoner Primary Care Provider [phone] ALLERGIES No Known Allergies RESULTS Component Value Reference Range Notes Microalbumin, Random Reviewed date:10/09/2023 01:50:21 PM Interpretation: Performing Lab:[facility], [address] [place] [phone] Notes/Report: Creatinine Urine 64.79 Microalbumin Urine 14.0 Microalbum/Creatinine Ratio Ur 21.6 <30 ug/mg cr Albumin/Creatinine Ratio Reference Ranges: Normal: < 30 ug/mg creatinine Microalbuminuria: 30 - 300 ug/mg creatinine Clinical Albuminuria: > 300 ug/mg creatinine Glucose, Whole Blood Reviewed date:10/11/2023 04:38:41 PM Interpretation: Performing Lab:[facility], [address] [place] [phone] Notes/Report: Glucose, Whole Blood 123 60-115 mg/dL METER #: [id number] Testing performed in the [facility]in[facility] , [address], [facility]. Complete Blood Count Auto Di ff Reviewed date:11/27/2023 12:39:22 PM Interpretation: Performing Lab:[facility], [address] [place] [phone] Notes/Report: White Blood Count 5.7 4.8-10.8 X10*3/uL [...] NRBC Abs Auto 0.000 0.0-0.012 X10*3/uL Comprehensive [place]. Panel Fa st Reviewed date:11/27/2023 12:31:25 PM Interpretation: Performing Lab:[facility], [address] [place] [phone] Notes/Report: Sodium 142 135-145 mmol/L Potassium 3.7 3.3-5.1 mmol/L Chloride 107 96-108 mmol/L Carbon Dioxide 26 22-29 mmol/L Anion Gap 13 12-20 Blood Urea Nitrogen 14 9-16 mg/dL Creatinine 0.82 0.5-1.4 mg/dL Estimated Glomerular Filt Rate > 60 NOTE: For -E[place]ian individuals, multiply the result by 1.210. Chronic [...] Panel Reviewed date:11/27/2023 12:31:33 PM Interpretation: Performing Lab:[facility], [address] [place] [phone] Notes/Report: Triglycerides 124 <150 mg/dL Desirable Triglyceride: [...] (Free>4and<10) Reviewed date:11/27/2023 12:35:54 PM Interpretation: Performing Lab:[address] [phone] Notes/Report: PSA,Total (Free>4and<10) 0.46 0.00-4.00 ng/mL A [...] Random Reviewed date:11/27/2023 12:36:06 PM Interpretation: Performing Lab:[address] [phone] Notes/Report: Creatinine Urine 118.02 Microalbumin Urine 14.0 Microalbum/Creatinine Ratio Ur 11.8 <30 ug/mg cr Albumin/Creatinine Ratio Reference Ranges: Normal: < 30 ug/mg creatinine Microalbuminuria: 30 - 300 ug/mg creatinine Clinical Albuminuria: > 300 ug/mg creatinine Hemoglobin A1c Reviewed date:11/27/2023 12:31:04 PM Interpretation: Performing Lab:[address] [phone] Notes/Report: Hemoglobin A1c % 5.9 <6.0 % [...] average glucose, using the formula of the Y5N-Fcwdfcf Average Glucose study (ADAG), Diabetes Care, Vol.31,#8, Mar. 2007 UA ClnCatch+Micro w/rflx Cul t Reviewed date:11/27/2023 12:30:54 PM Interpretation: Performing Lab:[facility], [address] [place] [phone] Notes/Report: Urine, Clean Catch Color Urine Yellow Appearance Urine Clear PH 5.0 5.0-9.0 Glucose Urine UA >=1000 Negative mg/dL Urine Blood Negative Negative Specific Watts - Urine >= 1.030 1.005-1.025 Urine Protein Negative Neg-Trace mg/dL Urine Ketones Negative Negative mg/dL Nitrite Urine Negative Negative Leukocyte Esterase Urine Negative Negative RBC Urine 0-2 0-2 /HPF WBC Urine 0-5 0-5 /HPF Squamous Epithelial Cell Urine 0-2 0-2 /HPF Bacteria Urine None Seen None Seen Hyaline Casts Urine 0-2 0-2 /LPF Occult Blood, Stool, Guaiac Reviewed date:01/22/2024 02:28:41 PM Interpretation:Negative Performing Lab: Notes/Report: Negative Occult Blood, Stool, Guaiac Neg Glucose, Whole Blood Reviewed date:04/09/2024 07:54:46 PM Interpretation: Performing Lab:[facility], [address] [place] [phone] Notes/Report: Glucose, Whole Blood 124 60-115 mg/dL METER #: [id number] Testing performed in the [facility] [place]. Glucose, Whole Blood Reviewed date:07/16/2024 04:59:15 PM Interpretation: Performing Lab:[facility], [address] [place] [phone] Notes/Report: Glucose, Whole Blood 141 60-115 mg/dL METER # : [id number] Pathology Reviewed date:07/18/2024 04:34:52 PM Interpretation: Performing Lab:[facility], [address] [place] [phone] Notes/Report: Hold Gold Reviewed date:08/04/2024 12:50:56 PM Interpretation: Performing Lab:[address] [phone] Notes/Report: Hold Gold See Note Specimen held untested for 24 hours; Call to request Chemistry testing. Liver Panel Reviewed date:08/04/2024 12:51:13 PM Interpretation: Performing Lab:[address] [phone] Notes/Report: Bilirubin Total 0.9 0.0-1.0 mg/dL Bilirubin Direct 0.3 0.0-0.5 mg/dL Aspartate Amino Transferase 36 5-37 U/L Alanine Aminotransferase 50 0-40 U/L Total Protein 7.4 6.5-8.0 g/dL Albumin Level 4.2 3.5-5.0 g/dL Alkaline Phosphatase 50 39-117 U/L Glucose Fasting Reviewed date:08/04/2024 12:51:21 PM Interpretation: Performing Lab:[facility], [address] [place] [phone] Notes/Report: Glucose Fasting 97 60-99 mg/dL Lipid Panel with Reflex Reviewed date:08/04/2024 12:51:41 PM Interpretation: Performing Lab:[facility], [address] [place] [phone] Notes/Report: Triglycerides 194 <150 mg/dL Desirable Triglyceride: less than 150 mg/dL Borderline High Triglyceride 150-199 mg/dL High Triglyceride: 200-499 mg/dL Very High Triglyceride: greater than or equal to 5OO mg/dL Cholesterol 148 <200 mg/dL Desirable Cholesterol: less than 200 mg/dL Borderline High Cholesterol: 200-239 mg/dL High Cholesterol: greater than 239 mg/dL LDL Cholesterol Calculated 58 <100 mg/dL Desirable LDL: less than 100 mg/dL Near Optimal/Above Optimal LDL: 110-129 mg/dL Borderline High LDL: 130-159 mg/dL High LDL: 160-189 mg/dL Very High LDL: greater than or equal to 190 mg/dL HDL Cholesterol 52 >40 mg/dL Desirable HDL: greater than 40 mg/dL Note: This HDL assay may give artificially low results in patients with liver disease. Hemoglobin A1c Reviewed date:08/04/2024 12:51:04 PM Interpretation: Performing Lab:[facility], [address] [place] [phone] Notes/Report: Hemoglobin A1c % 6.6 <6.0 % Hemoglobin A1C Reference Range Adults: 4.8 - 6.0 % Non diabetic: < 6.0 % Goal: < 7.0 % Additional Action Suggested: > 8.0 % Note: Hemoglobin A1c results are invalid for patients with abnormal amounts of HbF. Blood transfusions may impact the HbA1c concentration in the patient sample. Estimated Average Glucose 143 eAG = Estimated average glucose which is %A1C expressed as average glucose, using the formula of the [id number]-Bwyqvnp Average Glucose study (ADAG), Diabetes Care, Vol.31,#8, Mar. 2007 REASON FOR REFERRAL No Information MEDICATIONS Medication SIG (Take, Route, Frequency, Duration) Notes Start Date End Date Status BD Pen Needle Jennifer U/F 32G X 4 MM ONE PEN NEEDLE DAILY for 30 Active Mounjaro 5 MG/0.5ML as directed Subcutan eous once a week Not-Taking Farxiga 10 MG 1 tablet Orally Once a day Active metFORMIN HCl 1000 MG 1 tablet with meal s Orally Twice a day Active Lantus SoloStar 100 UNIT/ML as directed 20 units AM Acti ve Atorvastatin Calcium 40 MG TAKE 1 TABLET BY MOUTH EVERY DAY Active Losartan Potassium 25 MG TAKE 1 TABLET B Y MOUTH EVERY DAY for 90 Active Calcium 600 + D 600-200 MG-UNIT Orally Not-Taking IMMUNIZATIONS Vaccine Route Administration Date Status Comme nts Fluarix Quadrivalent IM Intramuscular 07/05/2017 Administe red PPSV23 (Pnemovax) IM Intramuscular 08/16/2017 Administered Fluarix Quadrivalent IM Intramuscular 09/30/2018 Administe red TDaP IM Intramuscular 10/01/2018 Administered pt was given the vaccine at [facility] in [place]. Tetanus Unknown 10/01/2018 Administered Fluarix Quadrivalent IM Intramuscular 09/30/2019 Administe red Fluarix Quadrivalent Unknown 06/11/2020 Administered Covid Vaccine Unknown 12/09/2020 Administered Moderna SARS-COV-2 Moderna Unknown 01/05/2021 Administered SARS-COV-2 Moderna Unknown 09/18/2021 Administered Fluarix Quadrivalent Unknown 06/29/2021 Administered Fluarix Quadrivalent IM Intramuscular 05/25/2022 Administe red SARS-COV-2 Moderna Unknown 01/06/2021 Administered PPSV23 (Pnemovax) IM Intramuscular 11/28/2022 Administered Influenza High Dose IM Intramuscular 06/07/2023 Administer ed Influenza High Dose IM Intramuscular 08/04/2024 Administer ed SOCIAL HISTORY Tobacco Use: Social History Observation Description Date Details (start date - stop date) Never Smoker NA - NA Sex Assigned At : Social History Observation Description Sex Assigned At Unknown Tobacco Use/Smoking Question Answer Notes Patient is a nonsmoker Additional Findings: Tobacco Non-User Cu rrent non-smoker, currently using no form of tobacco Alcohol Screen Question Answer Notes Did you have a drink contain ing alcohol in the past year? Yes How often did you have a dri nk containing alcohol in the past year? 2 to 4 times a month (2 points) How many drinks did you have on a typical day when you were drinking in the past year? 1 or 2 drinks (0 point) How often did you have 6 or more drinks on one occasion in the past year? 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) Active confirmed 854369659 Problem Pure hypercholesterolemia (E78.00) Active confirmed 339275927 Problem BMI 34.0-34.9,adult (Z68.34) Active confirmed 485273541 Problem BMI 33.0-33.9,adult (Z68.33) Active confirmed 179887602 VITAL SIGNS Blood pressure diastolic 68 mm Hg 01/22/2024 Height 68 in 01/22/2024 Blood pressure systolic 132 mm Hg 01/22/2024 Weight 227 lbs 01/22/2024 BMI 34.51 kg/m2 01/22/2024 PROCEDURES Procedure Date Ordered Date Performed Result Body Sit e Colonoscopy, Screening 07/16/2024 07/16/2024 pending path Encounters Encounter Location Date Provider Diagnosis Fernando Waggoner MD [address] [place] [phone] 01/22/2024 Fernando Waggoner Type 2 diabetes alvaro itus without complication, without long-term current use of insulin E11.9 ; Annual physical exam Z00.00 ; Pure hypercholesterolemia E78.00 ; Colon cancer screening Z12.11 and Depression screening Z13.31 Fernando Waggoner MD [address] [place] [phone] 11/27/2023 Fernando Waggoner Blood tests for rout ine general physical examination Z00.00 ; Type 2 diabetes mellitus without complication, without long-term current use of insulin E11.9 and Pure hypercholesterolemia E78.00 Fernando Waggoner MD [address] [place] [address] [address] [place], [place] [phone] 08/04/2024 Fernando Waggoner Type 2 diabetes alvaro itus without complication, without long-term current use of insulin E11.9 ; Encounter for immunization Z23 and Pure hypercholesterolemia E78.00 ASSESSMENTS Encounter Date Diagnosis Assessment Notes Treatment Notes Treatment Clinical Notes 01/22/2024 Annual physical exam (ICD-10 - Z00.00) labs reviewed and discussed with patient 01/22/2024 Type 2 diabetes alvaro itus without complication, without long-term current use of insulin (ICD-10 - E11.9) followed by dr spence. is doing well on meds, will continue current regiment 11/27/[address] ine general physical examination (ICD-10 - Z00.00) 11/27/2023 Type 2 diabetes alvaro itus without complication, without long-term current use of insulin (ICD-10 - E11.9) 08/04/2024 Encounter for immuni zation (ICD-10 - Z23) 08/04/2024 Type 2 diabetes alvaro itus without complication, without long-term current use of insulin (ICD-10 - E11.9) 01/22/2024 Pure hypercholestero lemia (ICD-10 - E78.00) stable, will continue current regiment 11/27/2023 Pure hypercholestero lemia (ICD-10 - E78.00) 08/04/2024 Pure hypercholestero lemia (ICD-10 - E78.00) 01/22/2024 Colon cancer screeni ng (ICD-10 - Z12.11) guaiac negative 01/22/2024 Depression screening (ICD-10 - Z13.31) negative screen PLAN OF TREATMENT Pending Test Test Name Order Date Electrocardiogram (EKG) 08/16/2017 Hemoglobin A1c 08/11/2024 COMPREHENSIVE METABOLIC PANEL 09/03/2018 CBC (INCLUDES DIFF/PLT) 09/03/2018 URINALYSIS, COMPLETE 09/03/2018 LIPID PANEL WITH REFLEX TO DIRECT LDL HEMOGLOBIN A1c 09/03/2018 PSA, TOTAL 09/03/2018 MICROALBUMIN, RANDOM URINE (W/CREATININE ) 09/03/2018 Glucose, finger stick 08/11/2024 Next Appt Details Provider Name:Fernando Purdy ier, 08/11/2024 03:00:00 PM, [address], [address], [place], [place], [phone], Provider Name:Fernando Purdy ier, 01/20/2025 07:15:00 AM, [address] [facility], [address], [place], [place], [phone], Provider Name:Fernando Purdy ier, 01/26/2025 02:30:00 PM, [address] [facility], [address], [place], [place], [phone], Insurance Providers Payer Name Payer Address Payer Phone Subscriber Number Group Number Insured Name Patient Relationship to Insured Coverage Start Date Coverage End Date [facility] [address] [place], [place] [phone] [phone] [id number] Abbe Bah Self - patient is the insured MEDICAL (GENERAL) HISTORY Medical History History ICD Code colonoscopy 10/[address] Soumya Deleon. polyp was found. father had polyps. probably needs one in 5 years.07/16/24 colonoscopy pending path
--- OUTSIDE RECORDS SUMMARY | 2024-08-06 14:52 | XMS_ITS | Patient Health Record ---
Author Organization [facility] Address [address] [place] [address] Care Team Providers Care Outside Residential Sales Professional Name Role Phone Edilson LUI, Fernando Primary Care Provider Lance Mohamud Jr Unavailable [phone] ALLERGIES No Known Allergies RESULTS Component Value Reference Range Notes Glucose, Whole Blood Reviewed date:07/16/2024 04:28:37 PM Interpretation: Performing Lab:[facility], [address] [place] [phone] Notes/Report: Glucose, Whole Blood 141 60-115 mg/dL METER # : [id number] Pathology Reviewed date:07/23/2024 08:28:44 AM Interpretation: Performing Lab:[facility], [address] [place] [phone] Notes/Report: REASON FOR REFERRAL No Information MEDICATIONS Medication SIG (Take, Route, Frequency, Duration) Notes Start Date End Date Status Fish Oil + D3 [id number] MG-UNIT 1 capsule Orally Once a day for 30 day(s) 06/23/2024 Active Super B Complex - as directed Orally 06/23/2024 Active MiraLax (colon prep) 17 GM/SCOOP mixed with Gatorade or Crystal Light Orally begin at 5:00 p.m. the day before the procedure for 1 day 06/23/2024 Active Atorvastatin Calcium 40 MG TAKE 1 TABLET BY MOUTH EVERY DAY Oral for 90 Active metFORMIN HCl 1000 MG Oral for 90 Active Tresiba FlexTouch 100 UNIT/ML INJECT 18 UNIT (0.18 ML) SUBCUTANEOUSLY DAILY Subcutaneous for 83 Active Collagen 500 MG as directed Orally 06/23/2024 Active Mounjaro 5 MG/0.5ML Subcutaneous for 28 Active Align - as directed Orally 06/23/2024 Active Farxiga 10 MG TAKE 1 TABLET BY OVI TH EVERY DAY Oral for 90 Active Fiber (Guar Gum) - as directed Orally 06/23/2024 Active Losartan Potassium 25 MG Oral for 90 Active PreserVision AREDS - as directed Orally 06/23/2024 Active Co Q 10 10 MG as directed Orally 06/23/2024 Active Vitamin C & D3/Karen Hips 500-1000-20 MG-UNIT-MG as directed Orally 06/23/2024 Active Flaxseed Oil 1400 MG as directed Orally 06/23/2024 Active IMMUNIZATIONS Vaccine Route Administration Date [...] Problem Colon cancer screening (Z12.11) Active confirmed 849857282 Problem Encounter for other preprocedural examination (Z01.818) Active confirmed 045149925 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) Active confirmed [id number] VITAL SIGNS Temperature 99.3 degrees Fahrenheit 06/23/2024 Blood pressure diastolic 00 mm Hg 06/23/2024 Height 5 ft 8 in in 06/23/2024 Blood pressure systolic 000 mm Hg 06/23/2024 Weight 225 lb 8 oz lbs 06/23/2024 BMI 34.28 kg/m2 06/23/2024 Encounters Encounter Location Date Provider Diagnosis [facility] Outpatient [address] [place] [phone] 07/16/2024 Lance Cabello Jr Colon cancer screening Z12.11 and Personal history of colonic polyps Z86.0100 [facility] [address] [place] [phone] 03/05/2024 Lance Cabello Jr [facility] [address] [place] [phone] 06/23/2024 Lance Cabello Jr Colon cancer screening Z12.11 ; Encounter for other preprocedural examination Z01.818 and half-way (current) use of oral hypoglycemic drugs Z79.84 [facility] [address] [place] [phone] 07/23/2024 Lance Cabello Jr ASSESSMENTS Encounter Date Diagnosis Assessment Notes Treatment Notes Treatment Clinical Notes 07/16/2024 Colon cancer screening (ICD-10 - Z12.11) 07/16/2024 Personal history of colonic polyps (ICD-10 - Z86.0100) 06/23/2024 Colon cancer screening (ICD-10 - Z12.11) Colonoscopy material was printed 06/23/2024 Encounter for other preprocedural examination (ICD-10 - Z01.818) 06/23/2024 half-way (current) use of oral hypoglycemic drugs (ICD-10 - Z79.84) PLAN OF TREATMENT Future Test Test Name Order Date COLONOSCOPY 06/23/2024 Insurance Providers Payer Name Payer Address Payer Phone Subscriber Number Group Number Insured Name Patient Relationship to Insured Coverage Start Date Coverage End Date [facility] [address] [place], [place] [id number] [phone] [id number] SNEHAL, FATHER MATT Self - patient is the insured MEDICAL (GENERAL) HISTORY Medical History History ICD Code Diabetes mellitus type 2 Hypertension Hyperlipidemia Colon polyps, colonoscopy 2016, five-yea r followup Melanoma left shoulder Surgical History Surgery Date(Month/Year) acute appendicitis 2021 deviated septum 1990
--- OUTSIDE RECORDS SUMMARY | 2024-08-06 14:52 | XMS_ITS ---
Author Organization Fernando Waggoner MD Address [address] [place] [phone] Care Team Providers Care Public Relations Professional Name Role Phone Fernando Waggoner Primary Care Provider [phone] RESULTS Component Value Reference Range Notes Liver Panel Reviewed date:08/04/2024 12:51:13 PM Interpretation: Performing Lab:[facility], [address] [place] [phone] Notes/Report: Bilirubin Total 0.9 0.0-1.0 mg/dL Bilirubin Direct 0.3 0.0-0.5 mg/dL Aspartate Amino Transferase 36 5-37 U/L Alanine Aminotransferase 50 0-40 U/L Total Protein 7.4 6.5-8.0 g/dL Albumin Level 4.2 3.5-5.0 g/dL Alkaline Phosphatase 50 39-117 U/L Glucose Fasting Reviewed date:08/04/2024 12:51:21 PM Interpretation: Performing Lab:[facility], [address] [place] [phone] Notes/Report: Glucose Fasting 97 60-99 mg/dL Lipid Panel with Reflex Reviewed date:08/04/2024 12:51:41 PM Interpretation: Performing Lab:[facility], [address] [place] [phone] Notes/Report: Triglycerides 194 <150 mg/dL Desirable Triglyceride: [...] A1c Reviewed date:08/04/2024 12:51:04 PM Interpretation: Performing Lab:[facility], [address] [place] [phone] Notes/Report: Hemoglobin A1c % 6.6 <6.0 % [...] average glucose, using the formula of the L6V-Arimyoy Average Glucose study (ADAG), Diabetes Care, Vol.31,#8, Mar. 2007 REASON FOR VISIT fasting lipids IMMUNIZATIONS Vaccine Route Administration Date Status Comme nts Influenza High Dose IM Intramuscular 08/04/2024 Administer ed Encounters Encounter Location Date Provider Diagnosis Fernando Waggoner MD [address] [place] [address] Drive [address] [place], [place] [phone] 08/04/2024 Fernando Waggoner Type 2 diabetes alvaro itus without complication, without long-term current use of insulin E11.9 ; Encounter for immunization Z23 and Pure hypercholesterolemia E78.00 ASSESSMENTS Encounter Date Diagnosis Assessment Notes Treatment Notes Treatment Clinical Notes 08/04/2024 Type 2 diabetes alvaro itus without complication, without long-term current use of insulin (ICD-10 - E11.9) 08/04/2024 Encounter for immuni zation (ICD-10 - Z23) 08/04/2024 Pure hypercholestero lemia (ICD-10 - E78.00) PLAN OF TREATMENT Next Appt Details Provider Name:Fernando nina, 08/11/2024 03:00:00 PM, [address] [place] [address], [address] [place] [address], [phone], Provider Name:Fernando nina, 01/20/2025 07:15:00 AM, [address] [place] [address], Suite [facility], [place], [place], [phone], Provider Name:Fernando nina, 01/26/2025 02:30:00 PM, [address] [place] [address], Suite [facility], [place], [place], [phone],
--- OUTSIDE RECORDS SUMMARY | 2024-08-06 14:52 | XMS_ITS ---
Author Organization Fernando Waggoner MD Address [address] [place] [phone] Care Team Providers Care Ios Developer Name Role Phone Fernando Waggoner Primary Care Provider [phone] ALLERGIES No Known Allergies RESULTS Component Value Reference Range Notes Occult Blood, Stool, Guaiac Reviewed date:01/22/2024 02:28:41 PM Interpretation:Negative Performing Lab: Notes/Report: Negative Occult Blood, Stool, Guaiac Neg REASON FOR VISIT annual visit, needs to lynnette his appt with Dr. Tapia was cancelled last year, NO Covid symptoms MEDICATIONS Medication SIG (Take, Route, Frequency, Duration) [...] meal s Orally Twice a day Active Calcium 600 + D 600-200 MG-UNIT Orally Not-Taking Lantus SoloStar 100 UNIT/ML as directed 20 units AM Acti ve Atorvastatin Calcium 40 MG TAKE 1 TABLET BY MOUTH EVERY DAY Active Losartan Potassium 25 MG TAKE 1 TABLET B Y MOUTH EVERY DAY for 90 Active SOCIAL HISTORY Tobacco Use: Social History Observation [...] Never (0 point) Points 2 Interpretation Negative VITAL SIGNS BMI 34.51 kg/m2 01/22/2024 Blood pressure systolic 132 mm Hg 01/22/20 24 Blood pressure diastolic 68 mm Hg 024 Height 68 in 01/22/2024 Weight 227 lbs 01/22/2024 Encounters Encounter Location Date Provider Diagnosis Fernando Waggoner MD [address] [place] [address] [place] [phone] 01/22/2024 Fernando Waggoner Type 2 diabetes alvaro itus without complication, without long-term current use of insulin E11.9 ; Annual physical exam Z00.00 ; Pure hypercholesterolemia E78.00 ; Colon cancer screening Z12.11 and Depression screening Z13.31 ASSESSMENTS Encounter Date Diagnosis Assessment Notes Treatment Notes Treatment Clinical Notes 01/22/2024 Type 2 diabetes alvaro itus without complication, without long-term current use of insulin (ICD-10 - E11.9) followed by dr spence. is doing well on meds, will continue current regiment 01/22/2024 Annual physical exam (ICD-10 - Z00.00) labs reviewed and discussed with patient 01/22/2024 Pure hypercholestero lemia (ICD-10 - E78.00) stable, will continue current regiment 01/22/2024 Colon cancer screeni ng (ICD-10 - Z12.11) guaiac negative 01/22/2024 Depression screening (ICD-10 - Z13.31) negative screen PLAN OF TREATMENT Medication Medication Name Sig Start Date Stop Date Notes Farxiga 10 MG 1 tablet Orally Once a day metFORMIN HCl 1000 MG 1 tablet with meal s Orally Twice a day Lantus SoloStar 100 UNIT/ML as directed 20 units AM Atorvastatin Calcium 40 MG TAKE 1 TABLET BY MOUTH EVERY DAY Treatment Notes Assessment Notes Type 2 diabetes mellitus wit hout complication, without long-term current use of insulin followed by dr spence. is doing well on meds, will continue current regiment Annual physical exam labs reviewed and d iscussed with patient Pure hypercholesterolemia stable, will c ontinue current regiment Colon cancer screening guaiac negative Depression screening negative screen Next Appt Details Follow Up: 6 Months, Reason: Provider Name:Fernando nina, 08/11/2024 03:00:00 PM, [address] [place] [address], [address], [phone], Provider Name:Fernando nina, 01/20/2025 07:15:00 AM, [address] [place] [address], [address], [phone], Provider Name:Fernando nina, 01/26/2025 02:30:00 PM, [address] [place] [address], [address], [phone], Progress Notes * Examination Category Sub-Category Detail Notes General Examination GENERAL APPEARANCE: well dev eloped, well nourished, in no acute distress HEAD: normocephalic, atrau matic EYES: pupils equal, round, reactive to light and accommodation, sclera non-icteric EARS: normal THROAT: clear NECK/THYROID: neck supple, full ra nge of motion, no cervical lymphadenopathy, no bruits HEART: regular rate and rhy thm, S1, S2 normal, no murmurs LUNGS: clear to auscultatio n bilaterally ABDOMEN: soft, nontender, non distended, bowel sounds present, normal, no organomegaly , no masses palpable NEUROLOGIC: nonfocal, motor stre ngth normal upper and lower extremities, sensory exam intact SKIN: warm and dry, no dio picious lesions EXTREMITIES: no clubbing, cyanosi s, or edema MALE GENITOURINARY: circumcised no penil e lesions or discharge testes descended bilaterally RECTAL EXAM: normal tone, no exte rnal hemorrhoids, no masses palpable, prostate normal, stool guaiac negative ORAL CAVITY: mucosa moist FOOT EXAM: Date: 01/22/2024 normal pinprick . normal pulse. normal light touch. PODIATRIC: normal pinprick, nor mal pulse, normal light touch History and Physical Notes * HPI (History of Present Illness) Category Sub-Category Detail Notes Depression Screening PHQ-9 Little inte rest or pleasure in doing things: Not at all Feeling down, depressed, or hopeless: No t at all Trouble falling or staying asleep, or sl eeping too much: Not at all Feeling tired or having little energy: N ot at all Poor appetite or overeating: Not at all Feeling bad about yourself o r that you are a failure, or have let yourself or your family down: Not at all Trouble concentrating on thi ngs, such as reading the newspaper or watching television: Not at all Moving or speaking so slowly that other people could have noticed; or the opposite, being so fidgety or restless that you have been moving around a lot more than usual: Not at all Thoughts that you would be b finn off or of hurting yourself in some way: Not at all Total Score: 0 Interpretation and Intervention Depression Krista sanchez Findings: Negative Follow-Up for Depression: : review of PH Q-9 found negative result, no follow-up needed SDOH Questions SDOH Questions In the past year have you been worried about losing housing?: No In the past year have you or any family members you live with been unable to get any of the following when it was really needed? Check all that apply:: None Fall Risk History Have you had any falls with injury in the past year?: No Have you had two or more falls in the st year?: No Communication Needs Communication Needs Does the patient have a hearing impairment: No Does the patient have a vision impairmen t?: Yes ?If yes, what is the vision impairment?: Glasses Does the patient have a cognition impair ment?: No
--- OUTSIDE RECORDS SUMMARY | 2024-08-06 14:53 | XMS_ITS | Patient Health Record ---
Author Organization [facility] MAIN OFFICE Address [address] [place] [address] Care Team Providers Care Hat Blocking Machine Operator Name Role Phone MELONY FLOR Primary Care Provider [phone] Melony Flor MD Unavailable Unavailable Reason For Referral No Information Plan Of Treatment Pending Test Test Name Order Date COVID-19 PCR (In House) 05/04/2020 Insurance Providers Payer Name Payer Address Payer Phone Subscriber Number Group Number Insured Name Patient Relationship to Insured Coverage Start Date Coverage End Date [place] of [place] [address] [place], [place] [id number] Abbe Bah Self - patient is the insured
== END 2024-08-04 10:57 | disposition home or self-care (01) ==
LOC: HO.LNP 10:56
PROVIDERS: Visit Provider Internal Medicine
DX: E11.9 Type 2 diabetes mellitus without complications (principal); E78.00 Pure hypercholesterolemia, unspecified
CPT/HCPCS: 80061; 80076; 82947; 83036

== ENCOUNTER 2024-10-09 15:08 | Outpatient (AMB) | payer BC, SELFPAY ==
--- NOTE | 2024-10-09 14:18 | A.OFFVIS_ITS ---
Vital Signs 10/09/24 15:13 Height 5 ft 8 in Weight 227 lb 1.218 oz BMI 34.5 BP 124/76 Blood Pressure Location Rt brachial Position Sitting Pulse 85 Pulse Source Pulse Oximeter Intake Visit Reasons: DM Intake Note: Patient presents today for a follow-up on Type 2 Diabetes Mellitus: Last Diabetic Eye exam: 08/2023 Last Podiatry Exam: Does not see a Saxophone Player Most recent HbA1c: 6.6%, 08/04/2024 Random Glucose- 125 mg/dL, Today Satellite Tv Technician Installer Required: No Accompanied by: Self / Same As Patient Allergies No Known Allergies Allergy (Verified 10/09/24 15:14) HPI Comments Details: 69 year old with type 2 diabetes presenting for follow up. He was last seen by Dr. Gogo Galeano 04/09/2024 with an A1c of 6.6%. Most recent A1c 6.6% 08/04/24. Initially diagnosed with T2DM in 1997 on routine screening exam. Was initially started on treatment with Metformin. Began Insulin in 2020. Current prescriptions: Metformin 1000 mg PO BID Farxiga 10 mg PO daily Mounjaro 5 mg PO once a week Tresiba 18-20 units daily Humalog 5 units AC. takes for a large meal only Hasn't used very often He tests his sugars twice daily. average 144. Some higher readings with larger meals. He is planning a walking [place] this spring for 1 week. We will be walking 6-7 miles daily. Denies hypoglycemia Family history of T2DM in Father and Brother. Denies a family history of Pancreatic Cancer. Last eye appt 11/2023 No retinopathy. Has appt scheduled Follows with podiatry Has new podiatry scheduled No neuropathy No Nephropathy, on Losartan 25 mg PO daily. EGFR>60 microalbumin 14.0 11/2023 Has HLD, on Atorvastatin 40 mg PO daily. LDL 11/2013 Denies CAD. [facility] Medical History Melanoma Hypervitaminosis D HLD (hyperlipidemia) HTN (hypertension) T2DM (type 2 diabetes mellitus) Surgical History H/O colonoscopy History of appendectomy History of nasal surgery Family History Father Diabetes Brother Diabetes Social History Household Members: None Household Members Other:: lives alone Are you a primary pet care technician to a significant other at home: No Do you presently have visiting nurse or other home services: No Alcohol intake: current Patient Tobacco Use Status: Never used Tobacco Physical Exam Vital Signs: Last Vital Signs Pulse 85 10/09/24 15:13 BP 124/76 10/09/24 15:13 BMI result Body Mass Index 34.5 Const Other: Absence of Cushingoid features. Absence of acromegalic features. Neck exam reveals nl size thyroid about 15 gms. No thyroid nodules palpable. Heart S1 S2, Reg R/R. No M/R G. Skin exam reveals absence of vitiligo or acanthosis nigricans. Visual exam of foot performed. No ulcerations or open lesions. No inter digit maceration or fissuring. No onychomycosis, no callouses. Sensation intact to monofilament exam. Vibratory sensation is normal with 128 Hz tuning fork. good cap refill skin dry pulse positive Results Reviewed Results Reviewed: Laboratory Last Values Glucose (Clinic) 125 mg/dL (60-115) H 10/09/24 15:23 Assessment & Plan Assessment & Plan (1) T2DM (type 2 diabetes mellitus): Code(s): E11.9 - Type 2 diabetes mellitus without complications Category: Medical Qualifiers: Diabetes mellitus complication status: with hyperglycemia Diabetes mellitus long goods drier insulin use: without usp use Qualified Code(s): E11.65 - Type 2 diabetes mellitus with hyperglycemia Plan: 69-year-old type 2 diabetic without known macro/macrovascular complications with a recent A1c of 6.6%. He declined sensor and prefers to continue with fingerstick sugars and he is doing this twice daily. He was advised when he goes on his sabianism [place] where he will be walking 6-7 miles daily that he should take Tresiba only 10 units the night before and may not require insulin during this week. He was counseled to carry a sugar source The patient had an opportunity to ask questions regarding treatment plan. The patient expressed understanding and agreement with the above treatment plan. The patient is aware they should contact our office by phone for worsening glucose readings or for any low blood sugars which may warrant a change in diabetes medication. Compliance is encouraged with medications and any followup testing/consults which may have been ordered. Patient Instructions: The patient was counseled to achieve a target A1C of 7% (154 avg). Fasting blood sugars should be 90-130 in the morning and less than 180 two hours after meals. Reviewed the relationship between poor diabetic control and the development of complications. Check your feet daily looking for any signs of infection, drainage, redness, ulceration and seek medical attention if this occurs. Break in shoes gradually and do not wear open-toed shoes or walk stocking footed or barefooted. Coding Level of Care Code Est Pt Level 4 (68516) Complex EM visit Add On G2211 Diagnoses Type 2 diabetes mellitus with hyperglycemia, without long-term current use of insulin E11.65 Diabetes mellitus complication status: with hyperglycemia Diabetes mellitus usp insulin use: without long goods drier use
[2024-10-09 15:13] VITALS: BP 124/76; PULSE 85; BMI 34.5
--- OUTSIDE RECORDS SUMMARY | 2024-10-09 15:14 | XMS_ITS ---
Author Organization [facility] Address [address] [place] [phone] Care Team Providers Care Account Executive Software Sales Name Role Phone Fernando Waggoner MD Primary Care Provider Efrain Cabello Jr, Lance Andino [phone] REASON FOR VISIT pathology Encounters Encounter Location Date Provider Diagnosis [facility] [address] [place] [phone] 07/23/2024 Lance Cabello Jr PLAN OF TREATMENT No Information
--- OUTSIDE RECORDS SUMMARY | 2024-10-09 15:15 | XMS_ITS ---
Author Organization [facility] Address [address] [place] [address] Care Team Providers Care Water Resource Consultant Name Role Phone Fernando Waggoner MD Primary Care Provider Lance Mohamud Jr REASON FOR VISIT screening Encounters Encounter Location Date Provider Diagnosis [facility] [address] [place] [phone] 07/16/2024 Lance Cabello Jr Colon cancer screening Z12.11 and Personal history of colonic polyps Z86.0100 ASSESSMENTS Encounter Date Diagnosis Assessment Notes Treatment Notes Treatment Clinical Notes 07/16/2024 Colon cancer screening (ICD-10 - Z12.11) 07/16/2024 Personal history of colonic polyps (ICD-10 - Z86.0100) PLAN OF TREATMENT No Information
--- OUTSIDE RECORDS SUMMARY | 2024-10-09 15:15 | XMS_ITS ---
Author Organization [facility] Address [address] [place] [phone] Care Team Providers Care Bureau Director Name Role Phone Fernando Waggoner MD Primary [...] Orally 06/23/2024 Active Fish Oil + D3 3470-6673 MG-UNIT 1 capsule Orally Once a day [...] Problem Colon cancer screening (Z12.11) Active confirmed 662310481 Problem Encounter for other preprocedural examination (Z01.818) Active confirmed 444972969 Problem manager terminal (current) use of oral hypoglycemic drugs (Z79.84) Active confirmed [id number] VITAL SIGNS BMI 34.28 kg/m2 06/23/2024 Blood pressure systolic 000 mm Hg 06/23/20 24 Blood pressure diastolic 00 mm Hg 024 Height 5 ft 8 in in 06/23/2024 Temperature 99.3 degrees Fahrenheit 06/23/20 24 Weight 225 lb 8 oz lbs 06/23/2024 Encounters Encounter Location Date Provider Diagnosis [facility] [address] [place] [phone] 06/23/2024 Lance Cabello Jr Colon cancer screening [...]
--- OUTSIDE RECORDS SUMMARY | 2024-10-09 15:15 | XMS_ITS | Patient Health Record ---
Author Organization [facility] Address [address] [place] [address] Care Team Providers Care Principal Automation Engineer Name Role Phone Edilson LUI, Fernando Primary Care Provider Lance Mohamud Jr Unavailable ALLERGIES No Known Allergies RESULTS Component Value Reference Range Notes Glucose, Whole Blood Reviewed date:07/16/2024 04:28:37 PM Interpretation: Performing Lab:[facility], [address] [place] [phone] Notes/Report: Glucose, Whole Blood 141 60-115 mg/dL METER # : [id number] Pathology Reviewed date:07/23/2024 08:28:44 AM Interpretation: Performing Lab:[facility], [address] [place] [phone] Notes/Report: REASON FOR REFERRAL No Information MEDICATIONS Medication SIG (Take, Route, Frequency, Duration) Notes Start Date End Date Status Fish Oil + D3 2805-7837 MG-UNIT 1 capsule Orally Once a day [...] Problem Colon cancer screening (Z12.11) Active confirmed 863195283 Problem Encounter for other preprocedural examination (Z01.818) Active confirmed 934523008 Problem keno terminal operator (current) use of oral hypoglycemic drugs (Z79.84) Active confirmed [id number] VITAL SIGNS Temperature 99.3 degrees Fahrenheit 06/23/2024 Blood pressure diastolic 00 mm Hg 06/23/2024 Height 5 ft 8 in in 06/23/2024 Blood pressure systolic 000 mm Hg 06/23/2024 Weight 225 lb 8 oz lbs 06/23/2024 BMI 34.28 kg/m2 06/23/2024 Encounters Encounter Location Date Provider Diagnosis [facility] [address] [place] [phone] 07/16/2024 Lance Cabello Jr Colon cancer screening Z12.11 and Personal history of colonic polyps Z86.0100 [facility] [address] [place] [phone] 03/05/2024 Lance Cabello Jr [facility] [address] [place] [phone] 06/23/2024 Lance Cabello Jr Colon cancer screening Z12.11 ; Encounter for other preprocedural examination Z01.818 and care home (current) use of oral hypoglycemic drugs Z79.84 [facility] [address] [place] [phone] 07/23/2024 Lance Cabello Jr ASSESSMENTS Encounter Date Diagnosis Assessment Notes Treatment Notes Treatment Clinical Notes 07/16/2024 Colon cancer screening (ICD-10 - Z12.11) 07/16/2024 Personal history of colonic polyps (ICD-10 - Z86.0100) 06/23/2024 Colon cancer screening (ICD-10 - Z12.11) Colonoscopy material was printed 06/23/2024 Encounter for other preprocedural examination (ICD-10 - Z01.818) 06/23/2024 care home (current) use of oral hypoglycemic drugs (ICD-10 - Z79.84) PLAN OF TREATMENT Future Test Test Name Order Date COLONOSCOPY 06/23/2024 Insurance Providers Payer Name Payer Address Payer Phone Subscriber Number Group Number Insured Name Patient Relationship to Insured Coverage Start Date Coverage End Date [facility] [address] [place], [place] [id number] SNEHAL, FATHER MATT Self - patient is the insured MEDICAL (GENERAL) HISTORY Medical History History ICD Code Diabetes mellitus type 2 Hypertension Hyperlipidemia Colon polyps, colonoscopy 2016, five-yea r followup Melanoma left shoulder Surgical History Surgery Date(Month/Year) acute appendicitis 2021 deviated septum 1990
--- OUTSIDE RECORDS SUMMARY | 2024-10-09 15:15 | XMS_ITS | Patient Health Record ---
Author Organization [facility] MAIN OFFICE Address [address] [place] [address] Care Team Providers Care Waste Water Or Water Plant Operator Name Role Phone MELONY FLOR Primary Care Provider [phone] Melony Flor MD Unavailable Unavailable Reason For Referral No Information Plan Of Treatment Pending Test Test Name Order Date COVID-19 PCR (In House) 05/04/2020 Insurance Providers Payer Name Payer Address Payer Phone Subscriber Number Group Number Insured Name Patient Relationship to Insured Coverage Start Date Coverage End Date [employer]BS of [place] [address] [place], [place] [id number] Abbe Bah Self - patient is the insured
--- OUTSIDE RECORDS SUMMARY | 2024-10-09 15:15 | XMS_ITS ---
Author Organization Fernando Waggoner MD Address [address] [place] [phone] Care Team Providers Care Laborer Shipyard Name Role Phone Fernando Waggoner Primary Care Provider Results Component Value Reference Range Notes Liver Panel Reviewed date:08/04/2024 12:51:13 PM Interpretation: Performing Lab:[facility], [address] [place] [phone] Notes/Report: Bilirubin Total 0.9 0.0-1.0 mg/dL Bilirubin Direct 0.3 0.0-0.5 mg/dL Aspartate Amino Transferase 36 5-37 U/L Alanine Aminotransferase 50 0-40 U/L Total Protein 7.4 6.5-8.0 g/dL Albumin Level 4.2 3.5-5.0 g/dL Alkaline Phosphatase 50 39-117 U/L Glucose Fasting Reviewed date:08/04/2024 12:51:21 PM Interpretation: Performing Lab:[facility], [address] [place] [phone] Notes/Report: Glucose Fasting 97 60-99 mg/dL Lipid Panel with Reflex Reviewed date:08/04/2024 12:51:41 PM Interpretation: Performing Lab:[facility], [address] [place] [phone] Notes/Report: Triglycerides 194 <150 mg/dL Desirable Triglyceride: [...] A1c Reviewed date:08/04/2024 12:51:04 PM Interpretation: Performing Lab:[facility], [address] [place] [phone] Notes/Report: Hemoglobin A1c % 6.6 <6.0 % [...] average glucose, using the formula of the [id number] Average Glucose study (ADAG), Diabetes Care, Vol.31,#8, Mar. 2007 REASON FOR VISIT fasting lipids Immunizations Vaccine Route Administration Date Status Comme nts Influenza High Dose IM Intramuscular 08/04/2024 Administer ed Encounters Encounter Location Date Provider Diagnosis Fernando Waggoner MD [address] [place] [address] Drive [address] [place], [place] [phone] 08/04/2024 Fernando Waggoner Type 2 diabetes alvaro itus without complication, without long-term current use of insulin E11.9 ; Encounter for immunization Z23 and Pure hypercholesterolemia E78.00 Assessments Encounter Date Diagnosis (ICD Code) Assessment Notes Treatment Notes Treatment Clinical Notes Section Notes 08/04/2024 Type 2 diabetes alvaro itus without complication, without long-term current use of insulin (ICD-10 - E11.9) 08/04/2024 Encounter for immunization (ICD-10 - Z23) 08/04/2024 Pure hypercholesterolemia (ICD-10 - E78.00) Plan Of Treatment Next Appt Details Provider Name:Fernando nina, 01/20/2025 07:15:00 AM, [address] [place] [address], [address], [place], [place], [phone], Provider Name:Fernando nina, 01/26/2025 02:30:00 PM, [address] [place] [address], [address], [place], [place], [phone], Progress Notes * Abbe BRIANDOB: (69 yo M)Acc No.[id number]:08/04/2024 Progress Note Patient:?Abbe BRIAN Provider:?Fernando Waggoner MD :[id number]???Age:69 Y???Sex:Male Eris e:08/04/2024 Address:[address] [place] [address] [place] , [id number] Subjective: * Chief Complaints: * ???1. Fasting lipids. * Medical History:? Objective: * Vitals:? Assessment: * Assessment: 1.?Encounter for immunizatio n - Z23 (Primary)???2.?Type 2 diabetes mellitus without complication, without long-term current use of insulin - E11.9???3.?Pure hypercholesterolemia - E78.00??? Plan: * Treatment: 2.?Pure hypercholesterolemia ?LAB: Liver Panel (Collection Date & Time - 08/04/2024 07:15 AM) ?LAB: Glucose Fasting (Collection Date & Time - 08/04/2024 07:15 AM) ?LAB: Lipid Panel with Reflex (Collection Date & Time - 08/04/2024 07:15 AM) ?LAB: Hemoglobin A1c (Collection Date & Time - 08/04/2024 07:15 AM) * Immunizations:? Influenza High Dose : 0.5 mL (Dose No:1) (Route: Intramuscular) given by Lou Alberto , Office Staff on Left Deltoid * Procedure Codes:?40053 FLU V ACC PRSV FREE INC ANTIG, 79897 IMMUNIZATION ADMIN, 14383 VENIPUNCT, ROUTINE* * * The named appointment provid er may or may not be the originator of this progress note, and it is not deemed complete until electronically signed by the appointment provider. Sign off status: Pending * Provider:?Fernando Waggoner MD Date:?1 10/05/2023 Generated for Leila thapa/Anette/Liseitting on:?10/09/2024 03:14 PM EST
--- OUTSIDE RECORDS SUMMARY | 2024-10-09 15:16 | XMS_ITS ---
Author Organization Fernando Waggoner MD Address [address] [place] [phone] Care Team Providers Care Substation Inspector Name Role Phone Fernando Waggoner Primary Care Provider Allergies No Known Allergies Results Component Value Reference Range Notes Occult Blood, Stool, Guaiac Reviewed date:01/22/2024 02:28:41 PM Interpretation:Negative Performing Lab: Notes/Report: Negative Occult Blood, Stool, Guaiac Neg REASON FOR VISIT annual visit, needs to [place] his appt with Dr. Tapia was cancelled last year, NO Covid symptoms Medications Medication SIG (Take, Route, Frequency, Duration) Notes [...] Y MOUTH EVERY DAY for 90 Active Social History Tobacco Use: Social History Observation Description Date Details (start date - stop date) Never Smoker NA - NA Tobacco Use/Smoking Question Answer Notes Patient is [...] Never (0 point) Points 2 Interpretation Negative Vital Signs Blood pressure systolic 132 mm Hg 01/22/20 24 Blood pressure diastolic 68 mm Hg 024 Height 68 in 01/22/2024 Weight 227 lbs 01/22/2024 BMI 34.51 kg/m2 01/22/2024 Encounters Encounter Location Date Provider Diagnosis Fernando Waggoner MD [address] [place] [address] [place] [phone] 01/22/2024 Fernando Waggoner Type 2 diabetes alvaro itus without complication, without long-term current use of insulin E11.9 ; Annual physical exam Z00.00 ; Pure hypercholesterolemia E78.00 ; Colon cancer screening Z12.11 and Depression screening Z13.31 Assessments Encounter Date Diagnosis (ICD Code) Assessment Notes Treatment Notes Treatment Clinical Notes Section Notes 01/22/2024 Type 2 diabetes alvaro itus without complication, without long-term current use of insulin (ICD-10 - E11.9) followed by dr spence. is doing well on meds, will continue current regiment 01/22/2024 Annual physical exam (ICD-10 - Z00.00) labs reviewed and discussed with patient 01/22/2024 Pure hypercholesterolemia (ICD-10 - E78.00) stable, will continue current regiment 01/22/2024 Colon cancer screeni ng (ICD-10 - Z12.11) guaiac negative 01/22/2024 Depression screening (ICD-10 - Z13.31) negative screen Plan Of Treatment Medication Medication Name Sig Start Date Stop [...] Up: 6 Months, Reason: Provider Name:Fernando nina, 01/20/2025 07:15:00 AM, [address] [place] [address], [place] [address], [place], [place], [phone], Provider Name:Fernando nina, 01/26/2025 02:30:00 PM, [address] [place] [address], [place] [address], [place], [place], [phone], Progress Notes * Abbe BRIANDOB: (69 yo M)Acc No.[id number]:01/22/2024 Progress Notes Patient:?Abbe Brian Provider:?Fernando Waggoner MD :1955???Age:69 Y???Sex:Male Eris e:01/22/2024 Address:[address] [place] [address] Rere rico , [id number] Subjective: * Chief Complaints: * ???[facility] his appt with Dr. Tapia was cancelled last year NO Covid symptoms * HPI: ???Depression Screening:?PHQ-9?Little interest or pleasure in doing things?Not at all,?Feeling down, depressed, or hopeless?Not at all,?Trouble falling or staying asleep, or sleeping too much?Not at all,?Feeling tired or having little energy?Not at all,?Poor appetite or overeating?Not at all,?Feeling bad about yourself or that you are a failure, or have let yourself or your family down?Not at all,?Trouble concentrating on things, such as reading the newspaper or watching television?Not at all,?Moving or speaking so slowly that other people could have noticed; or the opposite, being so fidgety or restless that you have been moving around a lot more than usual?Not at all,?Thoughts that you would be better off or of hurting yourself in some way?Not at all,?Total Score?0.?Interpretation and Intervention?Depression Screening Findings?Negative,?Follow-Up for Depression?: review of PHQ-9 found negative result, no follow-up needed.?Communication Needs:?Communication Needs?Does the patient have a hearing impairment?No,?Does the patient have a vision impairment??Yes,?If yes, what is the vision impairment??Glasses,?Does the patient have a cognition impairment??No.?Fall Risk:?History?Have you had any falls with injury in the past year??No,?Have you had two or more falls in the past year??No.?SDOH Questions:?SDOH Questions?In the past year have you been worried about losing housing??No,?In the past year have you or any family members you live with been unable to get any of the following when it was really needed? Check all that apply:?None.?Symptom(s):? patient is a 69 yo male here for annual visit with review of recent labs abd follow up of chronic issues.here for follow up of diabetes. not able to get mirela. * ROS:?General/Constitutional:?Patient denies?fatigue , headache.?Change in appetite?denies.?Chills?denies.?Fever?denies.?Ophthalmologic:?Blurred vision?denies.?Discharge?denies.?Pain?denies.?ENT:?Patient denies?decreased sense of smell , any loss of taste , sore throat.?Decreased hearing?denies.?Sore throat?denies.?Swollen glands?denies.?Endocrine:?Cold intolerance?denies.?Excessive thirst?denies.?Heat intolerance?denies.?Weight loss?denies.?Respiratory:?Cough?denies.?Shortness of breath at rest?denies.?Shortness of breath with exertion?denies.?Wheezing?denies.?Cardiovascular:?Chest pain at rest?denies.?Chest pain with exertion?denies.?Irregular heartbeat?denies.?Shortness of breath?denies.?Gastrointestinal:?Abdominal pain?denies.?Change in bowel habits?denies.?Diarrhea?denies.?Nausea?denies.?Rectal bleeding?denies.?Vomiting?denies .?Genitourinary:?Blood in urine?denies.?Difficulty urinating?denies.?Frequent urination?denies.?Musculoskeletal:?Patient denies?muscle aches.?Painful joints?denies.?Weakness?denies.?Peripheral Vascular:?Patient denies?red and blue toes.?Skin:?Dry skin?denies.?Itching?denies.?Denies?Mole(s),? changes in moles, new moles or any lesions of concern.?Denies?Photosensitivity.?Rash?denies.?Neurologic:?Dizziness?denies.?Fainting?denies.?Headache?denies.? * Medical History:? * Surgical History:? * Hospitalization/Major Diagno stic Procedure:? * Family History:?Father: dece ased 93 yrs, diagnosed with Diabetes.?Mother: 94 yrs.?5 brother(s) . .? all brothers are healthy 3 have Diabetes Father- cva Mother- old age, No pertinent family medical history, Denies mental health/substance abuse family history, No pertinent family medical history, No pertinent family medical history. * Social History:?Tobacco Use:?Tobacco Use/Smoking?Patient is a?nonsmoker,?Additional Findings: Tobacco Non-User?Current non-smoker, currently using no form of tobacco.?Drugs/Alcohol:?Alcohol Screen?Did you have a drink containing alcohol in the past year??Yes,?How often did you have a drink containing alcohol in the past year??2 to 4 times a month (2 points),?How many drinks did you have on a typical day when you were drinking in the past year??1 or 2 drinks (0 point),?How often did you have 6 or more drinks on one occasion in the past year??Never (0 point),?Points?2,?Interpretation?Negative.?Miscellaneous:?Caffeine: yes, frequency:, more than 4 cups per day. no Children. Community involvements: yes. no Exercise. Housing: living with other priests. Living with: friends. Occupation: works full-time. Pets: none. no Travel outside of the [place]. * Medications:?TakingBD Pen Ne edle Jennifer U/F 32G X 4 MM Miscellaneous ONE PEN NEEDLE DAILY Farxiga 10 MG Tablet 1 tablet Orally Once a daymetFORMIN HCl 1000 MG Tablet 1 tablet with meals Orally Twice a dayLantus SoloStar 100 UNIT/ML Solution Pen- injector as directed 20 units AM Atorvastatin Calcium 40 MG Tablet TAKE 1 TABLET BY MOUTH EVERY DAY Losartan Potassium 25 MG Tablet TAKE 1 TABLET BY MOUTH EVERY DAY Taking BD Pen Needle Jennifer U/F 32G X 4 MM Miscellaneous ONE PEN NEEDLE DAILY Taking Farxiga 10 MG Tablet 1 tablet Orally Once a dayTaking metFORMIN HCl 1000 MG Tablet 1 tablet with meals Orally Twice a dayTaking Lantus SoloStar 100 UNIT/ML Solution Pen-injector as directed 20 units AM Taking Atorvastatin Calcium 40 MG Tablet TAKE 1 TABLET BY MOUTH EVERY DAY Taking Losartan Potassium 25 MG Tablet TAKE 1 TABLET BY MOUTH EVERY DAY Not-Taking/PRNMounjaro 5 MG/0.5ML Solution Pen-injector as directed Subcutaneous once a weekCalcium 600 + D 600-200 MG-UNIT Tablet Orally Medication List reviewed and reconciled with the patientNot-Taking/PRN Mounjaro 5 MG/0.5ML Solution Pen- injector as directed Subcutaneous once a weekNot-Taking/PRN Calcium 600 + D 600-200 MG- UNIT Tablet Orally Medication List reviewed and reconciled with the patient * Allergies:?N.K.D.A.yes[Aller gies Verified] Objective: * Vitals:?Ht: 68, Wt:227, BMI: 34.51, BP:132/68. * ???Past Orders: ???Lab:UA ClnCatch+Micro w/r flx Cult (Order Date - 11/27/2023) (Collection Date - 11/27/2023) ? Value Reference Range ?Color Urine Yellow - ?Appearance Urine Clear - ?PH 5.0 5.0-9.0 - ?Glucose Urine UA >=1000 A Neg ative - mg/dL ?Urine Blood Negative Negative - ?Specific [place] - Urine >= 1.030 H 1.005-1.025 - ?Urine Protein Negative Neg-Tr grazyna - mg/dL ?Urine Ketones Negative Negati ve - mg/dL ?Nitrite Urine Negative Negati ve - ?Leukocyte Esterase Urine Negative Negative - ?RBC Urine 0-2 0-2 - /HPF ?WBC Urine 0-5 0-5 - /HPF ?Squamous Epithelial Cell Urine 0-2 0-2 - /HPF ?Bacteria Urine None Seen None Seen - ?Hyaline Casts Urine 0-2 0-2 - /LPF ???Lab:Comprehensive [place]. P rick Fast (Order Date - 11/27/2023) (Collection Date - 11/27/2023) ? Value Reference Range ?Sodium 142 135-145 - mmo l/L ?Bilirubin Total 0.7 0.0- 1.0 - mg/dL ?Aspartate Amino Transferase 19 5-37 - U/L ?Alanine Aminotransferase 32 0-40 - U/L ?Total Protein 7.1 6.5-8. 0 - g/dL ?Albumin Level 4.1 3.5-5. 0 - g/dL ?Alkaline Phosphatase 49 39-117 - U/L ?Potassium 3.7 3.3-5.1 - mmol/L ?Chloride 107 96-108 - mm ol/L ?Carbon Dioxide 26 22-29 - mmol/L ?Anion Gap 13 12-20 - ?Blood Urea Nitrogen 14 9-16 - mg/dL ?Creatinine 0.82 0.5-1.4 - mg/dL ?Estimated Glomerular Filt Rate > 60 - ?Glucose Fasting 110 H 60-9 9 - mg/dL ?Calcium 9.2 8.4-10.2 - m g/dL ???Lab:Lipid Panel (Order Da 11/27/2023) (Collection Date - 11/27/2023) ? Value Reference Range ?Triglycerides 124 <150 - mg/dL ?Cholesterol 143 <200 - m g/dL ?LDL Cholesterol Calculated 70 <100 - mg/dL ?HDL Cholesterol 49 >40 - mg/dL ???Lab:PSA,Total (Free>4and< 10) (Order 11/27/2023) (Collection - 11/27/2023) ? Value Reference Range ?PSA,Total (Free>4and<10) 0.46 0.00-4.00 - ng/mL ???Lab:Microalbumin, Random (Order 11/27/2023) (Collection Date - 11/27/2023) ? Value Reference Range ?Creatinine Urine 118.02 - m g/dL ?Microalbumin Urine 14.0 - mg/L ?Microalbum Creatinine Ratio Ur 11.8 <30 - ug/mg cr ???Lab:Hemoglobin A1c (Order Date - 11/27/2023) (Collection Date - 11/27/2023) ? Value Reference Range ?Hemoglobin A1c % 5.9 <6. 0 - % ?Estimated Average Glucose 123 - mg/dL ???Lab:Complete Blood Count Auto Diff (Order Date - 11/27/2023) (Collection Date - 11/27/2023) ? Value Reference Range ?White Blood Count 5.7 4. 8-10.8 - X10*3/uL ?Red Blood Count 4.72 4.60 -5.80 - X10*6/uL ?Hemoglobin 14.9 14.0-18.0 - g/dl ?Hematocrit 44.3 42.0-52.0 - % ?Mean Corpuscular Volume 93.9 80.0-98.0 - fL ?Mean Corpuscular Hemoglobin 31.6 27.0-33.0 - pg ?Mean Corpuscular HGB Conc 33.6 31.0-36.0 - g/dl ?Red Cell Distribution Width 12.7 11.0-16.0 - % ?Platelet Count 157 L 160-4 00 - X10*3/uL ?Mean Platelet Volume 10.0 9.4-12.4 - fL ?Neutrophils Percent Auto 59.1 45-73 - % ?Imm Gran Pct Auto 0.4 0. 0-0.4 - % ?Lymphocytes Percent Auto 23.9 20-40 - % ?Monocytes Percent Auto 11.1 H 2-11 - % ?Eosinophils Percent Auto 4.6 H 0-4 - % ?Basophils Percent Auto 0.9 0-2 - % ?NRBC Pct Auto 0.0 0.0-0. 2 - /100WBC ?Neutrophils Absolute Auto 3.4 2.0-8.3 - x10*3/uL ?Imm Gran Abs Auto 0.02 0. 00-0.03 - X10*3/uL ?Lymphocytes Absolute Auto 1.4 1.2-4.9 - X10*3/uL ?Monocytes Absolute Auto 0.6 0.1-1.2 - X10*3/uL ?Eosinophils Absolute Auto 0.3 0.0-0.4 - X10*3/uL ?Basophils Absolute Auto 0.1 0.0-0.2 - X10*3/uL ?NRBC Abs Auto 0.000 0.0-0. 012 - X10*3/uL * Examination: ???General Examination: ?GENERAL APPEARANCE:?well developed, well nourished, in no acute distress.?HEAD:?normocephalic, atraumatic.?EYES:?pupils equal, round, reactive to light and accommodation, sclera non-icteric.?EARS:?normal.?ORAL CAVITY:?mucosa moist.?THROAT:?clear.?NECK/THYROID:?neck supple, full range of motion, no cervical lymphadenopathy, no bruits.?SKIN:?warm and dry, no suspicious lesions.?HEART:?regular rate and rhythm, S1, S2 normal, no murmurs.?LUNGS:?clear to auscultation bilaterally.?ABDOMEN:?soft, nontender, nondistended, bowel sounds present, normal, no organomegaly , no masses palpable.?RECTAL EXAM:?normal tone, no external hemorrhoids, no masses palpable, prostate normal, stool guaiac negative.?MALE GENITOURINARY:? circumcised no penile lesions or discharge testes descended bilaterally.?EXTREMITIES:?no clubbing, cyanosis, or edema.?NEUROLOGIC:?nonfocal, motor strength normal upper and lower extremities, sensory exam intact.?PODIATRIC:?normal pinprick, normal pulse, normal light touch.?FOOT EXAM:?.? Assessment: * Assessment: 1.?Annual physical exam - Z0 0.00 (Primary)?2.?Type 2 diabetes mellitus without complication, without long-term current use of insulin - E11.9?3.?Pure hypercholesterolemia - E78.00?4.?Colon cancer screening - Z12.11?5.?Depression screening - Z13.31? Plan: * Treatment: 2.?Type 2 diabetes mellitus without complication, without long-term current use of insulin? Continue Farxiga Tablet, 10 MG, 1 tablet, Orally, Once a day;?Continue metFORMIN HCl Tablet, 1000 MG, 1 tablet with meals, Orally, Twice a day;?Continue Lantus SoloStar Solution Pen-injector, 100 UNIT/ML, as directed, 20 units AM.?? Notes: followed by dr spence. is doing well on meds, will continue current regiment.?? 3.?Pure hypercholesterolemia ? Continue Atorvastatin Calcium Tablet, 40 MG, TAKE 1 TABLET BY MOUTH EVERY DAY.?? Notes: stable, will continue current regiment.?? 4.?Colon cancer screening?LAB: Occult Blood, Stool, Guaiac?Negative ? Value Reference Range ?Occult Blood, Stool, Guaiac Neg Notes: guaiac negative.??5.?Depression screening? Notes: negative screen.?? * Procedure Codes:?13035 TEST FOR BLOOD, FECES * Follow Up:?6 Months * * Sign off status: Completed true * Provider:?Fernando Waggoner MD Date:?0 01/22/2024 Generated for Leila thapa/Anette/eTransmitting on:?10/09/2024 03:15 PM EST History and Physical Notes * HPI (History of Present Illness) Category Sub-Category Detail Notes Category Not es Symptom(s) patient is a 69 yo male here for annual visit with review of recent labs abd follow up of chronic issues.here for follow up of diabetes. not able to get mirela Depression Screening PHQ-9 Little inte rest or [...] Have you had any falls with injury i n the past year?: No Have you had two or more falls in the st year?: No Communication Needs Communication Needs Does the patient have a hearing impairment: No Does the patient have a vision impairmen t?: Yes ?If yes, what is the vision impairment?: Glasses Does the patient have a cognition impair ment?: No Examination Category Sub-Category Detail Notes Category Not es General Examination GENERAL APPEARANCE: well dev eloped, [...]
--- OUTSIDE RECORDS SUMMARY | 2024-10-09 15:16 | XMS_ITS ---
Author Organization Fernando Waggoner MD Address [address] [place] [phone] Care Team Providers Care Environmental Laboratory Technician Name Role Phone Fernando Waggoner Primary Care Provider Allergies No Known Allergies REASON FOR VISIT 6 month Medications Medication SIG (Take, Route, Frequency, Duration) Notes Start Date End Date Status BD Pen Needle Jennifer U/F 32G X 4 MM ONE PEN NEEDLE DAILY for 30 Active Atorvastatin Calcium 40 MG TAKE 1 TABLET BY MOUTH EVERY DAY Active Calcium 600 + D 600-200 MG-UNIT Orally Not-Taking Mounjaro 5 MG/0.5ML as directed Subcutan eous once a week Active Lantus SoloStar 100 UNIT/ML as directed 20 units AM Acti ve Losartan Potassium 25 MG TAKE 1 TABLET B Y MOUTH EVERY DAY for 90 Active Farxiga 10 MG 1 tablet Orally Once a day Active metFORMIN HCl 1000 MG 1 tablet with meal s Orally Twice a day Active Vital Signs Blood pressure systolic 114 mm Hg 08/11/20 24 Blood pressure diastolic 60 mm Hg 024 Height 68 in 08/11/2024 Weight 229 lbs 08/11/2024 BMI 34.82 kg/m2 08/11/2024 Encounters Encounter Location Date Provider Diagnosis Fernando Waggoner MD [address] [place] [address] [place] [phone] 08/11/2024 Fernando Waggoner Type 2 diabetes alvaro itus without complication, without long-term current use of insulin E11.9 and Pure hypercholesterolemia E78.00 Assessments Encounter Date Diagnosis (ICD Code) Assessment Notes Treatment Notes Treatment Clinical Notes Section Notes 08/11/2024 Type 2 diabetes alvaro itus without complication, without long-term current use of insulin (ICD-10 - E11.9) doing well. encouraged to exercise, will continue current regiment 08/11/2024 Pure hypercholesterolemia (ICD-10 - E78.00) stable, will contiue current regiment Plan Of Treatment Medication Medication Name Sig Start Date Stop Date Notes Atorvastatin Calcium 40 MG TAKE 1 TABLET BY MOUTH EVERY DAY Mounjaro 5 MG/0.5ML as directed Subcutan eous once a week Lantus SoloStar 100 UNIT/ML as directed 20 units AM Farxiga 10 MG 1 tablet Orally Once a day metFORMIN HCl 1000 MG 1 tablet with meal s Orally Twice a day Treatment Notes Assessment Notes Type 2 diabetes mellitus wit hout complication, without long-term current use of insulin doing well. encouraged to exercise, will continue current regiment Pure hypercholesterolemia stable, will c ontiue current regiment Next Appt Details Provider Name:Fernando nina, 01/20/2025 07:15:00 AM, [address] [place] [address], [place] [address], [place], [place], [phone], Provider Name:Fernando nina, 01/26/2025 02:30:00 PM, [address] [place] [address], [address] [facility], [place], [place], [phone], Progress Notes * Abbe BRIANDOB: 7 (69 yo M)Acc No.[id number]:08/11/2024 Progress Notes Patient:?Abbe Brian Provider:?Fernando Waggoner MD :1955???Age:69 Y???Sex:Male Eris e:08/11/2024 Address:[address] [place] [address] Re[address]y , [id number] Subjective: * Chief Complaints: * ???6 month * HPI: ???Symptom(s):? patient is a 69 yo male here for 6 month follow up visit. * ROS:?General/Constitutional:?Denies?Chills.?Denies?Fatigue.?Denies?Fever.?Denies?Headache.?ENT:?Denies?Sore throat.?Endocrine:?Denies?Difficulty sleeping.?Denies?Dizziness.?Denies?Excessive sweating.?Denies?Excessive thirst.?Admits?Frequent urination.?Respiratory:?Denies?Cough.?Denies?Shortness of breath at rest.?Denies?Shortness of breath with exertion.?Gastrointestinal:?Denies?Diarrhea.?Denies?Nausea.? * Medical History:? * Surgical History:? * Hospitalization/Major Diagno stic Procedure:? * Medications:?TakingBD Pen Ne edle Jennifer U/F 32G X 4 MM Miscellaneous ONE PEN NEEDLE DAILY Losartan Potassium 25 MG Tablet TAKE 1 TABLET BY MOUTH EVERY DAY Farxiga 10 MG Tablet 1 tablet Orally Once a daymetFORMIN HCl 1000 MG Tablet 1 tablet with meals Orally Twice a dayLantus SoloStar 100 UNIT/ML Solution Pen-injector as directed 20 units AM Atorvastatin Calcium 40 MG Tablet TAKE 1 TABLET BY MOUTH EVERY DAY Mounjaro 5 MG/0.5ML Solution Pen-injector as directed Subcutaneous once a weekTaking BD Pen Needle Jennifer U/F 32G X 4 MM Miscellaneous ONE PEN NEEDLE DAILY Taking Losartan Potassium 25 MG Tablet TAKE 1 TABLET BY MOUTH EVERY DAY Taking Farxiga 10 MG Tablet 1 tablet Orally Once a dayTaking metFORMIN HCl 1000 MG Tablet 1 tablet with meals Orally Twice a dayTaking Lantus SoloStar 100 UNIT/ML Solution Pen-injector as directed 20 units AM Taking Atorvastatin Calcium 40 MG Tablet TAKE 1 TABLET BY MOUTH EVERY DAY Taking Mounjaro 5 MG/0.5ML Solution Pen-injector as directed Subcutaneous once a weekNot-Taking/PRNCalcium 600 + D 600-200 MG-UNIT Tablet Orally Medication List reviewed and reconciled with the patientNot-Taking/PRN Calcium 600 + D 600- 200 MG-UNIT Tablet Orally Medication List reviewed and reconciled with the patient * Allergies:?N.K.D.A.yes[Aller gies Verified] Objective: * Vitals:?Ht: 68, Wt:229, BMI: 34.82, BP:114/60. * ???Past Orders: ???Lab:Hemoglobin A1c (Order Date - 08/04/2024) (Collection Date - 08/04/2024) ? Value Reference Range ?Hemoglobin A1c % 6.6 H <6. 0 - % ?Estimated Average Glucose 143 - mg/dL ???Lab:Lipid Panel with Refl ex (Order Date - 08/04/2024) (Collection Date - 08/04/2024) ? Value Reference Range ?Triglycerides 194 H <150 - mg/dL ?Cholesterol 148 <200 - m g/dL ?LDL Cholesterol Calculated 58 <100 - mg/dL ?HDL Cholesterol 52 >40 - mg/dL ???Lab:Glucose Fasting (Orde r Date - 08/04/2024) (Collection Date - 08/04/2024) ? Value Reference Range ?Glucose Fasting 97 60-9 9 - mg/dL ???Lab:Liver Panel (Order Da te - 08/04/2024) (Collection Date - 08/04/2024) ? Value Reference Range ?Bilirubin Total 0.9 0.0- 1.0 - mg/dL ?Bilirubin Direct 0.3 0.0 -0.5 - mg/dL ?Aspartate Amino Transferase 36 5-37 - U/L ?Alanine Aminotransferase 50 H 0-40 - U/L ?Total Protein 7.4 6.5-8. 0 - g/dL ?Albumin Level 4.2 3.5-5. 0 - g/dL ?Alkaline Phosphatase 50 39-117 - U/L * Examination: ???General Examination: ?GENERAL APPEARANCE:?alert, well hydrated, in no distress.?HEAD:?normocephalic.?HEART:?no murmurs, rubs, gallops , regular rate and rhythm.?LUNGS:?no wheezes, rales, rhonchi , good air movement , clear to auscultation bilaterally.?FOOT EXAM:?.? Assessment: * Assessment: 1.?Type 2 diabetes mellitus without complication, without long-term current use of insulin - E11.9 (Primary)?2.?Pure hypercholesterolemia - E78.00? Plan: * Treatment: 2.?Pure hypercholesterolemia ? Continue Atorvastatin Calcium Tablet, 40 MG, TAKE 1 TABLET BY MOUTH EVERY DAY.?? Notes: stable, will contiue current regiment?? * Procedure Codes:?G2211 Compl ex e/m visit add on * * Sign off status: Completed true * Provider:?Fernando Waggoner MD Date:?1 10/12/2023 Generated for Luisi alanis/Anette/eTransmitting on:?10/09/2024 03:15 PM EST History and Physical Notes * HPI (History of Present Illness) Category Sub-Category Detail Notes Category Not es Symptom(s) patient is a 69 yo male here for 6 month follow up visit Examination Category Sub-Category Detail Notes Category Not es General Examination GENERAL APPEARANCE: alert, w ell hydrated, in no distress HEAD: normocephalic HEART: no murmurs, rubs, ga llops , regular rate and rhythm LUNGS: no wheezes, rales, r honchi , good air movement , clear to auscultation bilaterally FOOT EXAM: Date: 08/11/2024 normal pinprick . normal pulse. normal light touch.
--- OUTSIDE RECORDS SUMMARY | 2024-10-09 15:16 | XMS_ITS | Patient Health Record ---
Author Organization Fernando Waggoner MD Address [address] [place] [phone] Care Team Providers Care Klystrom Tube Tester Name Role Phone Fernando Waggoner Primary Care Provider Allergies No Known Allergies Results Component Value Reference Range Notes Complete Blood Count Auto Di ff Reviewed date:11/27/2023 12:39:22 PM Interpretation: Performing Lab:[facility], [address] [place] [phone] Notes/Report: White Blood Count 5.7 4.8-10.8 X10*3/uL [...] NRBC Abs Auto 0.000 0.0-0.012 X10*3/uL Comprehensive [place]. Panel Fa st Reviewed date:11/27/2023 12:31:25 PM Interpretation: Performing Lab:[facility], [address] [place] [phone] Notes/Report: Sodium 142 135-145 mmol/L Potassium 3.7 3.3-5.1 mmol/L Chloride 107 96-108 mmol/L Carbon Dioxide 26 22-29 mmol/L Anion Gap 13 12-20 Blood Urea Nitrogen 14 9-16 mg/dL Creatinine 0.82 0.5-1.4 mg/dL Estimated Glomerular Filt Rate > 60 NOTE: For -[place] individuals, multiply the result by 1.210. Chronic [...] Panel Reviewed date:11/27/2023 12:31:33 PM Interpretation: Performing Lab:[facility], [address] [place] [phone] Notes/Report: Triglycerides 124 <150 mg/dL Desirable Triglyceride: [...] (Free>4and<10) Reviewed date:11/27/2023 12:35:54 PM Interpretation: Performing Lab:[address] [phone] Notes/Report: PSA,Total (Free>4and<10) 0.46 0.00-4.00 ng/mL A [...] Random Reviewed date:11/27/2023 12:36:06 PM Interpretation: Performing Lab:[facility], [address] [place] [phone] Notes/Report: Creatinine Urine 118.02 Microalbumin Urine 14.0 Microalbum/Creatinine Ratio Ur 11.8 <30 ug/mg cr Albumin/Creatinine Ratio Reference Ranges: Normal: < 30 ug/mg creatinine Microalbuminuria: 30 - 300 ug/mg creatinine Clinical Albuminuria: > 300 ug/mg creatinine Hemoglobin A1c Reviewed date:11/27/2023 12:31:04 PM Interpretation: Performing Lab:[facility], [address] [place] [phone] Notes/Report: Hemoglobin A1c % 5.9 <6.0 % [...] average glucose, using the formula of the U0E-Nrpfnwz Average Glucose study (ADAG), Diabetes Care, Vol.31,#8, Mar. 2007 UA ClnCatch+Micro w/rflx Cul t Reviewed date:11/27/2023 12:30:54 PM Interpretation: Performing Lab:[address] [phone] Notes/Report: Urine, Clean Catch Color Urine Yellow Appearance Urine Clear PH 5.0 5.0-9.0 Glucose Urine UA >=1000 Negative mg/dL Urine Blood Negative Negative Specific [place] - Urine >= 1.030 1.005-1.025 Urine Protein Negative Neg-Trace mg/dL Urine Ketones Negative Negative mg/dL Nitrite Urine Negative Negative Leukocyte Esterase Urine Negative Negative RBC Urine 0-2 0-2 /HPF WBC Urine 0-5 0-5 /HPF Squamous Epithelial Cell Urine 0-2 0-2 /HPF Bacteria Urine None Seen None Seen Hyaline Casts Urine 0-2 0-2 /LPF Liver Panel Reviewed date:08/04/2024 12:51:13 PM Interpretation: Performing Lab:[address] [phone] Notes/Report: Bilirubin Total 0.9 0.0-1.0 mg/dL Bilirubin Direct 0.3 0.0-0.5 mg/dL Aspartate Amino Transferase 36 5-37 U/L Alanine Aminotransferase 50 0-40 U/L Total Protein 7.4 6.5-8.0 g/dL Albumin Level 4.2 3.5-5.0 g/dL Alkaline Phosphatase 50 39-117 U/L Glucose Fasting Reviewed date:08/04/2024 12:51:21 PM Interpretation: Performing Lab:[address] [phone] Notes/Report: Glucose Fasting 97 60-99 mg/dL Lipid Panel with Reflex Reviewed date:08/04/2024 12:51:41 PM Interpretation: Performing Lab:[address] [phone] Notes/Report: Triglycerides 194 <150 mg/dL Desirable Triglyceride: [...] A1c Reviewed date:08/04/2024 12:51:04 PM Interpretation: Performing Lab:[address] [phone] Notes/Report: Hemoglobin A1c % 6.6 <6.0 % [...] average glucose, using the formula of the O6O-Lgsylqk Average Glucose study (ADAG), Diabetes Care, Vol.31,#8, Mar. 2007 Occult Blood, Stool, Guaiac Reviewed date:01/22/2024 02:28:41 PM Interpretation:Negative Performing Lab: Notes/Report: Negative Occult Blood, Stool, Guaiac Neg Glucose, Whole Blood Reviewed date:10/11/2023 04:38:41 PM Interpretation: Performing Lab:[facility], [address] [place] [phone] Notes/Report: Glucose, Whole Blood 123 60-115 mg/dL METER #: [id number] Testing performed in the [facility]in[facility], [facility]. Glucose, Whole Blood Reviewed date:04/09/2024 07:54:46 PM Interpretation: Performing Lab:[facility], [address] [place] [phone] Notes/Report: Glucose, Whole Blood 124 60-115 mg/dL METER #: [id number] Testing performed in the [facility], [facility]. Glucose, Whole Blood Reviewed date:07/16/2024 04:59:15 PM Interpretation: Performing Lab:[facility], [address] [place] [phone] Notes/Report: Glucose, Whole Blood 141 60-115 mg/dL METER # : [id number] Pathology Reviewed date:07/18/2024 04:34:52 PM Interpretation: Performing Lab:[facility], [address] [place] [phone] Notes/Report: Name: KarlashaylaAbbe baldwin Age/Sex: 69/M : 1955 Unit#: [id number] Attend Dr: Lance Cabello MD Re07/16/24 Status: [facility] Location: [facility] Disch: SPEC : [id number] RECD: 07/16/24 STATUS: ALEC GUTIERREZ NUM: [id number] LUKE: 07/16/[address] [facility] DR: Lance Cabello MD ENTERED: 07/16/24 SP TYPE: Surgical OTHR DR: Fernando Waggoner MD ORDERED: HE Stain/6, Gross Micro L4/2 Diagnosis A. Cecum, polypectomy: Tubular adenoma; negative for high-grade dysplasia or carcinoma. B. Ileocecal valve, polyp: Fragments of tubular adenoma; negative for high-grade dysplasia or carcinoma. Comment: Multiple additional levels are examined on both blocks. Clinical History Pre-Op Dx: Screening Post-Op Dx: Polyps Microscopic Description Microscopic sections reviewed. Material Received A. Polyp cecum B. Polyp ileocecal valve Gross Description Received in two parts. Part A: Received in formalin labeled ?polyp cecum? is a 0.3 cm billings-pink irregular tissue fragment, submitted in toto in a cassette labeled A. Part B: Received in formalin labeled ?polyp ileocecal valve? are 2 billings-pink irregular tissue fragments each measuring 0.3 cm, submitted in toto a cassette labeled B. CEDS Copies To: Fernando Waggoner MD [facility] [address] [place] [address] [place] [address] [phone] CONTINUED ON NEXT PAGE Name: Abbe Bah Age/Sex: 69/M : 1955 Unit#: [id number] Attend Dr: Lance Cabello MD Re07/16/24 Status: [facility] Location: [facility] Disch: SPEC : [id number] RECD: 07/16/24 STATUS: ALEC GUTIERREZ NUM: [id number] LUKE: 07/16/[address]: Lance Cabello MD ENTERED: 07/16/24 SP TYPE: Surgical OTHR DR: Fernando Waggoner MD ORDERED: [place]IL[place] Stain/6, Gross Micro L4/2 Copies To: (Continued) Lance Cabello MD [address] [place] [address] Signed (signature on file) Aniket Reyna MD 07/18/24 1131 END OF REPORT Wei Cox Reviewed date:08/04/2024 12:50:56 PM Interpretation: Performing Lab:[facility], [address] [place] [phone] Notes/Report: Wei Cox See Note Specimen held untested for 24 hours; Call to request Chemistry testing. Reason For Referral No Information Medications Medication SIG (Take, Route, Frequency, Duration) Notes Start Date End Date Status BD Pen Needle Jennifer U/F 32G X 4 MM ONE PEN NEEDLE DAILY for 30 Active Atorvastatin Calcium 40 MG TAKE 1 TABLET BY MOUTH EVERY DAY for 90 Active Farxiga 10 MG 1 tablet Orally Once a day Active metFORMIN HCl 1000 MG 1 tablet with meal s Orally Twice a day Active Losartan Potassium 25 MG TAKE 1 TABLET B Y MOUTH EVERY DAY for 90 Active Calcium 600 + D 600-200 MG-UNIT Orally Not-Taking Mounjaro 5 MG/0.5ML as directed Subcutan eous once a week Active Lantus SoloStar 100 UNIT/ML as directed 20 units AM Acti ve Immunizations Vaccine Route Administration Date Status Comme nts Fluarix Quadrivalent IM Intramuscular 07/05/2017 Administe red PPSV23 (Pnemovax) IM Intramuscular 08/16/2017 Administered Fluarix Quadrivalent IM Intramuscular 09/30/2018 [facility] TDaP IM Intramuscular 10/01/2018 Administered pt was given the vaccine at [facility] in [place]. Tetanus Unknown 10/01/2018 Administered Fluarix Quadrivalent IM Intramuscular 09/30/2019 Administe red Fluarix Quadrivalent Unknown 06/11/2020 Administered Covid Vaccine Unknown 12/09/2020 Administered Moderna SARS-COV-2 Moderna Unknown 01/05/2021 Administered SARS-COV-2 Moderna Unknown 09/18/2021 Administered Fluarix Quadrivalent Unknown 06/29/2021 Administered Fluarix Quadrivalent IM Intramuscular 05/25/2022 [facility] red SARS-COV-2 Moderna Unknown 01/06/2021 Administered PPSV23 (Pnemovax) IM Intramuscular 11/28/2022 Administered Influenza High Dose IM Intramuscular 06/07/2023 Administer ed Influenza High Dose IM Intramuscular 08/04/2024 Administer ed Social History Tobacco Use: Social History Observation [...] Never (0 point) Points 2 Interpretation Negative Problems Problem Type SNOMED Code ICD Code Onset Dates Problem Status W/U Status Risk Notes Problem 157007624 Pure hypercholesterolemia (E78.00) Active confirmed Problem 804984302 BMI 34.0-34.9,ad ult (Z68.34) Active confirmed Problem 368558709 Type 2 diabetes mellitus without complication, without long-term current use of insulin (E11.9) Active confirmed Problem 671457202 BMI 33.0-33.9,ad ult (Z68.33) Active confirmed Problem 659493060 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) Active confirmed Vital Signs Blood pressure diastolic 60 mm Hg 08/11/2024 Height 68 in 08/11/2024 Blood pressure systolic 114 mm Hg 08/11/2024 Weight 229 lbs 08/11/2024 BMI 34.82 kg/m2 08/11/2024 Procedures Procedure Date Ordered Date Performed Result Body Sit e Colonoscopy, Screening 07/16/2024 07/16/2024 pending path Encounters Encounter Location Date Provider Diagnosis Fernando Waggoner MD [address] [place] [phone] 11/27/2023 Fernando Waggoner Blood tests for rout ine general physical examination Z00.00 ; Type 2 diabetes mellitus without complication, without long-term current use of insulin E11.9 and Pure hypercholesterolemia E78.00 Fernando Waggoner MD [address] [place] [phone] 08/04/2024 Fernando Waggoner Type 2 diabetes alvaro itus without complication, without long-term current use of insulin E11.9 ; Encounter for immunization Z23 and Pure hypercholesterolemia E78.00 Fernando Waggoner MD [address] [place] [id number] 01/22/2024 Fernando Waggoner Type 2 diabetes alvaro itus without complication, without long-term current use of insulin E11.9 ; Annual physical exam Z00.00 ; Pure hypercholesterolemia E78.00 ; Colon cancer screening Z12.11 and Depression screening Z13.31 Fernando Waggoner MD [address] [place] [address] Drive [address] [place] [phone] 08/11/2024 Fernando Waggoner Type 2 diabetes alvaro itus without complication, without long-term current use of insulin E11.9 and Pure hypercholesterolemia E78.00 Assessments Encounter Date Diagnosis (ICD Code) Assessment Notes Treatment Notes Treatment Clinical Notes Section Notes 11/27/2023 [address] tests [address] ine general physical examination (ICD-10 - Z00.00) 11/27/2023 Type 2 diabetes alvaro itus without complication, without long-term current use of insulin (ICD-10 - E11.9) 08/04/2024 Type 2 diabetes alvaro itus without complication, without long-term current use of insulin (ICD-10 - E11.9) 08/04/2024 Encounter for immunization (ICD-10 - Z23) 01/22/2024 Type 2 diabetes alvaro itus without complication, without long-term current use of insulin (ICD-10 - E11.9) followed by dr spence. is doing well on meds, will continue current regiment 01/22/2024 Annual physical exam (ICD-10 - Z00.00) labs reviewed and discussed with patient 08/11/2024 Type 2 diabetes alvaro itus without complication, without long-term current use of insulin (ICD-10 - E11.9) doing well. encouraged to exercise, will continue current regiment 08/11/2024 Pure hypercholesterolemia (ICD-10 - E78.00) stable, will contiue current regiment 11/27/2023 Pure hypercholesterolemia (ICD-10 - E78.00) 08/04/2024 Pure hypercholesterolemia (ICD-10 - E78.00) 01/22/2024 Pure hypercholesterolemia (ICD-10 - E78.00) stable, will continue current regiment 01/22/2024 Colon cancer screeni ng (ICD-10 - Z12.11) dionicioac negative 01/22/2024 Depression screening (ICD-10 - Z13.31) negative screen Plan Of Treatment Pending Test Test Name Order Date Electrocardiogram (EKG) 08/16/2017 Next Appt Details Provider Name:Fernando Purdy ier, 01/20/2025 07:15:00 AM, [address] [place] [address], [address] [place] [address], [phone], Provider Name:Fernando Purdy ier, 01/26/2025 02:30:00 PM, [address] [place] [address], [address], [place], [place], [phone], Insurance Providers Payer Name Payer Address Payer Phone Subscriber Number Group Number Insured Name Patient Relationship to Insured Coverage Start Date Coverage End Date [employer] [address] [place], [place] [id number] Abbe Bah Self - patient is the insured Medical (General) History Medical History History ICD Code colonoscopy 10/[address] Soumya Deleon. polyp was found. father had polyps. probably needs one in 5 years.07/16/24 colonoscopy pending path
[2024-10-09 15:26] LABS: Glucose, Whole Blood 125 mg/dL (60-115)
== END 2024-10-09 15:56 | disposition home or self-care (01) ==
LOC: HO.ENCR 15:58
PROVIDERS: PCP Internal Medicine; Visit Provider Nurse Practitioner Adult Health
DX: E11.65 Type 2 diabetes mellitus with hyperglycemia (principal)
CPT/HCPCS: 99214

== ENCOUNTER → 2024-10-09 15:12 | Outpatient (BNVA) | payer BC, SELFPAY | PROVIDERS: PCP Internal Medicine; Visit Provider Nurse Practitioner Adult Health | DX: E11.65 Type 2 diabetes mellitus with hyperglycemia (principal); Z79.4 Long term (current) use of insulin | CPT/HCPCS: 82947 ==

== ENCOUNTER 2025-01-20 07:15 | Outpatient (REF) | payer BC, SELFPAY ==
[2025-01-20 10:31] LABS: MANUAL DIFF FLAG NO
[2025-01-20 10:57] LABS: Basophils Percent Auto 0.6 % (0-2); Eosinophils Absolute Auto 0.3 X10*3/uL (0.0-0.4); Eosinophils Percent Auto 4.1 % (0-4); Hematocrit 46.1 % (42.0-52.0); Hemoglobin 15.6 g/dl (14.0-18.0); Imm Gran Abs Auto 0.04 X10*3/uL (0.00-0.03); Imm Gran Pct Auto 0.6 % (0.0-0.4); Lymphocytes Absolute Auto 1.3 X10*3/uL (1.2-4.9); Lymphocytes Percent Auto 20.7 % (20-40); Mean Corpuscular HGB Conc 33.8 g/dl (31.0-36.0); Mean Corpuscular Hemoglobin 31.5 pg (27.0-33.0); Mean Corpuscular Volume 93.1 fL (80.0-98.0); Mean Platelet Volume 10.7 fL (9.4-12.4); Monocytes Absolute Auto 0.8 X10*3/uL (0.1-1.2); Neutrophils Absolute Auto 3.9 x10*3/uL (2.0-8.3); Platelet Count 176 X10*3/uL (160-400); Red Blood Count 4.95 X10*6/uL (4.60-5.80); Red Cell Distribution Width 12.5 % (11.0-16.0); White Blood Count 6.3 X10*3/uL (4.8-10.8)
[2025-01-20 10:58] LABS: Appearance Urine Clear; Color Urine Yellow; Glucose Urine UA >=1000 mg/dL (Negative); Leukocyte Esterase Urine Negative (Negative); Nitrite Urine Negative (Negative); Specific Gravity - Urine >= 1.030 (1.005-1.025); UMIC TRIGGER UACC YES; Urine Blood Negative (Negative); Urine Ketones Trace mg/dL (Negative); Urine Protein Trace mg/dL (Neg-Trace)
[2025-01-20 11:01] LABS: Bacteria Urine None Seen (None Seen); Hyaline Casts Urine 0-2 /LPF (0-2); RBC Urine 0-2 /HPF (0-2); Squamous Epithelial Cell Urine 0-2 /HPF (0-2); WBC Urine 0-5 /HPF (0-5)
[2025-01-20 11:04] LABS: Estimated Average Glucose 140 mg/dL; Hemoglobin A1C 191.7017 umol/L; Hemoglobin A1c % 6.5 % (<6.0); Total Hemoglobin (HGBA1C) 4059.8733 umol/L
--- OUTSIDE RECORDS SUMMARY | 2025-01-20 11:13 | XMS_ITS ---
Author Organization [facility] Address [address] [place] [phone] Care Team Providers Care Clutch Specialist Name Role Phone Fernando Waggoner MD Primary Care Provider Efrain Cabello Jr, Lance Andino [phone] REASON FOR VISIT pathology Encounters Encounter Location Date Provider Diagnosis [facility] [address] [place] [phone] 07/23/2024 Lance Cabello Jr Plan Of Treatment No Information Progress Notes * FATHER MATT BRIANDOB: (69 yo M)Acc No.[id number]:07/23/2024 Patient:?FATHER MATTHIAS BRIAN AEL :1955???Age:69 Y???Sex:Male Address:[address] [facility] [place], [address] * true * Date:? Generated for Printi ng/Faxing/eTransmitting on:?01/20/2025 11:13 AM EDT
[2025-01-20 11:28] LABS: PSA,Total (Free>4and<10) 0.51 ng/mL (0.00-4.00)
[2025-01-20 11:34] LABS: Alanine Aminotransferase 26 U/L (0-40); Albumin Level 4.7 g/dL (3.5-5.0); Alkaline Phosphatase 52 U/L (39-117); Anion Gap 16 (12-20); Aspartate Amino Transferase 23 U/L (5-37); Bilirubin Total 0.9 mg/dL (0.0-1.0); Blood Urea Nitrogen 17 mg/dL (9-16); Calcium 9.7 mg/dL (8.4-10.2); Carbon Dioxide 25 mmol/L (22-29); Chloride 104 mmol/L (96-108); Cholesterol 159 mg/dL (<200); Estimated Glomerular Filt Rate > 60; Glucose Fasting 90 mg/dL (60-99); HDL Cholesterol 53 mg/dL (>40); LDL Cholesterol Calculated 71 mg/dL (<100); Sodium 141 mmol/L (135-145); Triglycerides 179 mg/dL (<150)
[2025-01-20 11:44] LABS: Creatinine Urine 157.73 mg/dL; Microalbum/Creatinine Ratio Ur 25.9 ug/mg cr (<30)
== END 2025-01-20 07:16 | disposition home or self-care (01) ==
LOC: HO.LNP 07:15
PROVIDERS: Visit Provider Internal Medicine
DX: Z00.00 Encounter for general adult medical examination without abnormal findings (principal); Z12.5 Encounter for screening for malignant neoplasm of prostate; E11.9 Type 2 diabetes mellitus without complications; E78.00 Pure hypercholesterolemia, unspecified
CPT/HCPCS: 80053; 80061; 81001; 82043; 82570; 83036; 84153; 85025

== ENCOUNTER 2025-04-21 15:22 | Outpatient (AMB) | payer BC, SELFPAY ==
--- OUTSIDE RECORDS SUMMARY | 2024-03-05 07:20 | XMS_ITS ---
Author Organization [facility] Address [address] [place] [id number] Care Team Providers Care Subsea Engineer Name Role Phone Fernando Waggoner MD Primary Care Provider Efrain Cabello Jr, Lance Andino [phone] REASON FOR VISIT Patient presents today for a colon screening Encounters Encounter Location Date Provider Diagnosis [facility] [address] [place] [phone] 03/05/2024 Lance Cabello Jr Plan Of Treatment No Information Progress Notes * FATHER MATT BRIANDOB: (70 yo M)Acc No.[id number]:03/05/2024 Progress Notes Patient: FATHER MATT ANGELES Provider: Eunice Cabello MD :1955 A ge:69 Y S ex:Male Date:03/05/2024 Address:[address] [id number] Pcp:Fernando Waggoner MD Subjective: * Chief Complaints: * 1 . Patient presents today for a colon screening. * Medical History: Objective: * Vitals: Assessment: Plan: * Treatment: * * The named appointment provid er may or may not be the originator of this progress note, and it is not deemed complete until electronically signed by the appointment provider. Sign off status: Pending * Provider: Eunice Cabello MD Date: 0 03/05/2024 Generated for Printi ng/Faxing/eTransmitting on: 04/21/2025 04:15 PM EDT
--- OUTSIDE RECORDS SUMMARY | 2024-07-16 09:50 | XMS_ITS ---
Author Organization [facility] Address [address] [place] [phone] Care Team Providers Care Shells Inspector Name Role Phone Fernando Waggoner MD Primary Care Provider Lance Mohamud Jr REASON FOR VISIT screening Encounters Encounter Location Date Provider Diagnosis [facility] Outpatient [address] [place] [phone] 07/16/2024 Lance Cabello Jr Colon cancer screening Z12.11 and Personal history of colonic polyps Z86.0100 Assessments Encounter Date Diagnosis (ICD Code) Assessment Notes Treatment Notes Treatment Clinical Notes Section Notes 07/16/2024 Colon cancer screening (ICD-10 - Z12.11) 07/16/2024 Personal history of colonic polyps (ICD-10 - Z86.0100) Plan Of Treatment No Information Progress Notes * FATHER MATT BRIANDOB: (70 yo M)Acc No.[id number]:07/16/2024 COLON WITH MAC Patient: FATHER MATT ANGELES Provider: Eunice Cabello MD :1955 A ge:69 Y S ex:Male Date:07/16/2024 Address:[address] [facility] [id number] Pcp:Fernando Waggoner MD Subjective: * Chief Complaints: * 1 . Screening. * Medical History: Objective: * Vitals: Assessment: * Assessment: 1. C olon cancer screening - Z12.11 (Primary) 2 . P ersonal history of colonic polyps - Z86.0100 Plan: * Treatment: * Procedure Codes: 4 5380 COLONOSCOPY AND BIOPSY, 0529F INTRVL 3+YRS PTS CLNSCP DOCD * * The named appointment provid er may or may not be the originator of this progress note, and it is not deemed complete until electronically signed by the appointment provider. Sign off status: Pending * Provider: Eunice Cabello MD Date: 1 09/15/2023 Generated for Leila thapa/Anette/Liseitting on: 0 04/21/2025 04:15 PM EDT
--- OUTSIDE RECORDS SUMMARY | 2025-01-20 03:15 | XMS_ITS ---
Author Organization Fernando Waggoner MD Address [address] [place] [phone] Care Team Providers Care Home Health Care Worker Name Role Phone Fernando Waggoner Primary Care Provider Results Component Value Reference Range Notes Complete Blood Count Auto Di ff Reviewed date:01/20/2025 12:38:04 PM Interpretation: Performing Lab:[facility], [address] [place] [phone] Notes/Report: White Blood Count 6.3 4.8-10.8 X10*3/uL Red Blood Count 4.95 4.60-5.80 X10*6/uL Hemoglobin 15.6 14.0-18.0 g/dl Hematocrit 46.1 42.0-52.0 % Mean Corpuscular Volume 93.1 80.0-98.0 fL Mean Corpuscular Hemoglobin 31.5 27.0-33.0 pg Mean Corpuscular HGB Conc 33.8 31.0-36.0 g/dl Red Cell Distribution Width 12.5 11.0-16.0 % Platelet Count 176 160-400 X10*3/uL Mean Platelet Volume 10.7 9.4-12.4 fL Neutrophils Percent Auto 62.0 45-73 % Imm Gran Pct Auto 0.6 0.0-0.4 % Lymphocytes Percent Auto 20.7 20-40 % Monocytes Percent Auto 12.0 2-11 % Eosinophils Percent Auto 4.1 0-4 % Basophils Percent Auto 0.6 0-2 % NRBC Pct Auto 0.0 0.0-0.2 /100WBC Neutrophils Absolute Auto 3.9 2.0-8.3 x10*3/u L Imm Gran Abs Auto 0.04 0.00-0.03 X10*3/uL Lymphocytes Absolute Auto 1.3 1.2-4.9 X10*3/u L Monocytes Absolute Auto 0.8 0.1-1.2 X10*3/uL Eosinophils Absolute Auto 0.3 0.0-0.4 X10*3/u L Basophils Absolute Auto 0.0 0.0-0.2 X10*3/uL NRBC Abs Auto 0.000 0.0-0.012 X10*3/uL Comprehensive [place]. Panel Fa st Reviewed date:01/20/2025 12:45:17 PM Interpretation: Performing Lab:[facility], [address] [place] [phone] Notes/Report: Sodium 141 135-145 mmol/L Potassium 4.0 3.3-5.1 mmol/L Chloride 104 96-108 mmol/L Carbon Dioxide 25 22-29 mmol/L Anion Gap 16 12-20 Blood Urea Nitrogen 17 9-16 mg/dL Creatinine 0.79 0.5-1.4 mg/dL Estimated Glomerular Filt Rate > 60 Chronic Kidney Disease: Estimated GFR < 60 mL/min/1.73m2 Severe Kidney Disease: Estimated GFR < 15 mL/min/1.73m2 Glucose Fasting 90 60-99 mg/dL Calcium 9.7 8.4-10.2 mg/dL Bilirubin Total 0.9 0.0-1.0 mg/dL Aspartate Amino Transferase 23 5-37 U/L Alanine Aminotransferase 26 0-40 U/L Total Protein 8.0 6.5-8.0 g/dL Albumin Level 4.7 3.5-5.0 g/dL Alkaline Phosphatase 52 39-117 U/L Lipid Panel Reviewed date:01/20/2025 12:33:10 PM Interpretation: Performing Lab:[address] [phone] Notes/Report: Triglycerides 179 <150 mg/dL Desirable Triglyceride: less than 150 mg/dL Borderline High Triglyceride 150-199 mg/dL High Triglyceride: 200-499 mg/dL Very High Triglyceride: greater than or equal to 5OO mg/dL Cholesterol 159 <200 mg/dL Desirable Cholesterol: less than 200 mg/dL Borderline High Cholesterol: 200-239 mg/dL High Cholesterol: greater than 239 mg/dL LDL Cholesterol Calculated 71 <100 mg/dL Desirable LDL: less than 100 mg/dL Near Optimal/Above Optimal LDL: 110-129 mg/dL Borderline High LDL: 130-159 mg/dL High LDL: 160-189 mg/dL Very High LDL: greater than or equal to 190 mg/dL HDL Cholesterol 53 >40 mg/dL Desirable HDL: greater than 40 mg/dL Note: This HDL assay may give artificially low results in patients with liver disease. PSA,Total (Free>4and<10) Reviewed date:01/20/2025 12:32:23 PM Interpretation: Performing Lab:[address] [phone] Notes/Report: PSA,Total (Free>4and<10) 0.51 0.00-4.00 ng/mL A Free PSA was not [...] Chemiluminescent Microparticle Immunoassay (CMIA) Microalbumin, Random Reviewed date:01/20/2025 12:32:32 PM Interpretation: Performing Lab:[facility], [address] [place] [phone] Notes/Report: Creatinine Urine 157.73 Microalbumin Urine 41.0 Microalbum/Creatinine Ratio Ur 25.9 <30 ug/mg cr Albumin/Creatinine Ratio Reference Ranges: Normal: < 30 ug/mg creatinine Microalbuminuria: 30 - 300 ug/mg creatinine Clinical Albuminuria: > 300 ug/mg creatinine Hemoglobin A1c Reviewed date:01/20/2025 12:32:14 PM Interpretation: Performing Lab:[facility], [address] [place] [phone] Notes/Report: Hemoglobin A1c % 6.5 <6.0 % Hemoglobin A1C Reference Range Adults: 4.8 - 6.0 % Non diabetic: < 6.0 % Goal: < 7.0 % Additional Action Suggested: > 8.0 % Note: Hemoglobin A1c results are invalid for patients with abnormal amounts of HbF. Blood transfusions may impact the HbA1c concentration in the patient sample. Estimated Average Glucose 140 eAG = Estimated average glucose which is %A1C expressed as average glucose, using the formula of the F7I-Kkqkyjj Average Glucose study (ADAG), Diabetes Care, Vol.31,#8, Mar. 2007 UA ClnCatch+Micro w/rflx Cul t Reviewed date:01/20/2025 12:36:20 PM Interpretation: Performing Lab:[facility], [address] [place] [phone] Notes/Report: Urine, Clean Catch Color Urine Yellow Appearance Urine Clear PH 5.0 5.0-9.0 Glucose Urine UA >=1000 Negative mg/dL Urine Blood Negative Negative Specific [place] - Urine >= 1.030 1.005-1.025 Urine Protein Trace Neg-Trace mg/dL Urine Ketones Trace Negative mg/dL Nitrite Urine Negative Negative Leukocyte Esterase Urine Negative Negative RBC Urine 0-2 0-2 /HPF WBC Urine 0-5 0-5 /HPF Squamous Epithelial Cell Urine 0-2 0-2 /HPF Bacteria Urine None Seen None Seen Hyaline Casts Urine 0-2 0-2 /LPF REASON FOR VISIT yearly fasting labs Encounters Encounter Location Date Provider Diagnosis Fernando Waggoner MD [address] [place], [place] [phone] 01/20/2025 Fernando Waggoner Blood tests for rout ine general physical examination Z00.00 ; Type 2 diabetes mellitus without complication, without long-term current use of insulin E11.9 and Pure hypercholesterolemia E78.00 Assessments Encounter Date Diagnosis (ICD Code) Assessment Notes Treatment Notes Treatment Clinical Notes Section Notes 01/20/2025 Blood tests for rout ine general physical examination (ICD-10 - Z00.00) 01/20/2025 Type 2 diabetes alvaro itus without complication, without long-term current use of insulin (ICD-10 - E11.9) 01/20/2025 Pure hypercholesterolemia (ICD-10 - E78.00) Plan Of Treatment Next Appt Details Provider Name:Fernando Purdy ier, 07/27/2025 07:00:00 AM, [address] [place] [address], [address] [place] [address], [phone], Provider Name:Fernando Purdy ier, 08/03/2025 02:00:00 PM, [address] [place] [address], [address] [place] [address], [phone], Provider Name:Fernandolinda Purdy ier, 01/22/2026 07:15:00 AM, [address] [place] [address], [address], [phone], Provider Name:Fernando Shan Gurwinder ier, 01/29/2026 02:30:00 PM, [address] [place] [address], [address] [place] [address], [phone], Progress Notes * Abbe BRIANDOB: 7 (70 yo M)Acc No.[id number]:01/20/2025 Progress Note Patient: Abbe ANGELES Provider: Mauricio Waggoner MD :1955 A ge:70 Y S ex:Male Date:01/20/2025 Address:[address] [place], [place] [phone] Subjective: * Chief Complaints: * 1 . Yearly fasting labs. * Medical History: Objective: * Vitals: Assessment: * Assessment: 1. B lood tests for routine general physical examination - Z00.00 (Primary) 2 .?Type 2 diabetes mellitus without complication, without long-term current use of insulin - E11.9 3 . P ure hypercholesterolemia - E78.00 Plan: * Treatment: 2. T ype 2 diabetes mellitus without complication, without long-term current use of insulin L AB: Complete Blood Count Auto Diff (Collection Date & Time - 01/20/2025 07:15 AM) L AB: Comprehensive [place]. Panel Fast (Collection Date & Time - 01/20/2025 07:15 AM) L AB: Lipid Panel (Collection Date & Time - 01/20/2025 07:15 AM) L AB: PSA,Total (Free>4and<10) (Collection Date & Time - 01/20/2025 07:15 AM) L AB: Microalbumin, Random (Collection Date & Time - 01/20/2025 07:15 AM) L AB: Hemoglobin A1c (Collection Date & Time - 01/20/2025 07:15 AM) L AB: UA ClnCatch+Micro w/rflx Cult (Collection Date & Time - 01/20/2025 07:15 AM) 3. P ure hypercholesterolemia L AB: Complete Blood Count Auto Diff (Collection Date & Time - 01/20/2025 07:15 AM) L AB: Comprehensive [place]. Panel Fast (Collection Date & Time - 01/20/2025 07:15 AM) L AB: Lipid Panel (Collection Date & Time - 01/20/2025 07:15 AM) L AB: PSA,Total (Free>4and<10) (Collection Date & Time - 01/20/2025 07:15 AM) L AB: Microalbumin, Random (Collection Date & Time - 01/20/2025 07:15 AM) L AB: Hemoglobin A1c (Collection Date & Time - 01/20/2025 07:15 AM) L AB: UA ClnCatch+Micro w/rflx Cult (Collection Date & Time - 01/20/2025 07:15 AM) * Procedure Codes: 3 6415 VENIPUNCT, ROUTINE* * * The named appointment provid er may or may not be the originator of this progress note, and it is not deemed complete until electronically signed by the appointment provider. Sign off status: Pending * Provider: Mauricio Waggoner MD Date: 0 01/20/2025 Generated for Luisi ng/Faxing/eTransmitting on: 0 04/21/2025 04:15 PM EDT
--- OUTSIDE RECORDS SUMMARY | 2025-01-26 10:30 | XMS_ITS ---
Author Organization Fernando Waggoner MD Address [address] [place] [phone] Care Team Providers Care Household Appliances Salesperson Name Role Phone Fernando Waggoner Primary Care Provider Allergies No Known Allergies Results Component Value Reference Range Notes Occult Blood, Stool, Guaiac Reviewed date:01/26/2025 03:03:46 PM Interpretation:Negative Performing Lab: Notes/Report: Negative Occult Blood, Stool, Guaiac Neg REASON FOR VISIT annual visit Medications Medication SIG (Take, Route, Frequency, Duration) Notes Start Date End Date Status Atorvastatin Calcium 40 MG TAKE 1 TABLET BY MOUTH EVERY DAY for 90 Active Calcium 600 + D 600-200 MG-UNIT Orally Not-Taking Losartan Potassium 25 MG TAKE 1 TABLET B Y MOUTH EVERY DAY for 90 Active Lantus SoloStar 100 UNIT/ML as directed 20 units AM Acti ve metFORMIN HCl 1000 MG 1 tablet with meal s Orally Twice a day Active Mounjaro 7.5 MG/0.5ML as directed Subcut aneous once a week for 30 days Active Farxiga 10 MG 1 tablet Orally Once a day Active BD Pen Needle Jennifer U/F 32G X 4 MM ONE PEN NEEDLE DAILY for 30 Active Social History Tobacco Use: Social History [...] Interpretation Negative Vital Signs Blood pressure systolic 112 mm Hg 01/27/20 25 Blood pressure diastolic 64 mm Hg 025 Height 68 in 01/26/2025 Weight 225 lbs 01/26/2025 BMI 34.21 kg/m2 01/26/2025 weight is down 4 pounds [facility] jacky 08-11-24 Encounters Encounter Location Date Provider Diagnosis Fernando Waggoner MD [address] [place] [address] [place] [phone] 01/26/2025 Fernando Waggoner Type 2 diabetes alvaro itus without complication, without long-term current use of insulin E11.9 ; Annual physical exam Z00.00 ; Pure hypercholesterolemia E78.00 ; Colon cancer screening Z12.11 and Depression screening Z13.31 Assessments Encounter Date Diagnosis (ICD Code) Assessment Notes Treatment Notes Treatment Clinical Notes Section Notes 01/26/2025 Type 2 diabetes alvaro itus without complication, without long-term current use of insulin (ICD-10 - E11.9) good a1c. advised to exercise, stable, will continue current regiment 01/26/2025 Annual physical exam (ICD-10 - Z00.00) labs reviewed and discussed with patient 01/26/2025 Pure hypercholesterolemia (ICD-10 - E78.00) well controlled, will continue current regiment 01/26/2025 Colon cancer screeni ng (ICD-10 - Z12.11) guaiac negative 01/26/2025 Depression screening (ICD-10 - Z13.31) negative screen Plan Of Treatment Medication Medication Name Sig Start Date Stop Date Notes Mounjaro 7.5 MG/0.5ML as directed Subcut aneous once a week for 30 days Treatment Notes Assessment Notes Type 2 diabetes mellitus wit hout complication, without long-term current use of insulin good a1c. advised to exercise, stable, will continue current regiment Annual physical exam labs reviewed and d iscussed with patient Pure hypercholesterolemia well controlle d, will continue current regiment Colon cancer screening guaiac negative Depression screening negative screen Next Appt Details Follow Up: 6 Months, Reason: Provider Name:Fernando nina, 07/27/2025 07:00:00 AM, [address] [place] [address], [address] [place] [address], [phone], Provider Name:Fernando nina, 08/03/2025 02:00:00 PM, [address] [place] [address], [address], [phone], Provider Name:Fernando nina, 01/22/2026 07:15:00 AM, [address] [place] [address], [address], [phone], Provider Name:Fernando nina, 01/29/2026 02:30:00 PM, [address] [place] [address], [place] [address], [place], [place], [phone], Progress Notes * SNEHALAbbeDOB: (70 yo M)Acc No.[id number]:01/26/2025 Progress Notes Patient: Abbe ANGELES Provider: Mauricio Waggoner MD :1955 A ge:70 Y S ex:Male Date:01/26/2025 Address:[address] [place] [address] Jose [id number] Subjective: * Chief Complaints: * A nnual visit * HPI: D epression Screening: PHQ-9 L ittle interest or pleasure in doing things N ot at all, F eeling down, depressed, or hopeless N ot at all, T rouble falling or staying asleep, or sleeping too much N ot at all, F eeling tired or having little energy N ot at all, P oor appetite or overeating N ot at all, F eeling bad about yourself or that you are a failure, or have let yourself or your family down N ot at all, T rouble concentrating on things, such as reading the newspaper or watching television N ot at all, M oving or speaking so slowly that other people could have noticed; or the opposite, being so fidgety or restless that you have been moving around a lot more than usual N ot at all, T houghts that you would be better off or of hurting yourself in some way N ot at all, T otal Score 0 . I nterpretation and Intervention D epression Screening Findings N egative, F ollow-Up for Depression : review of PHQ-9 found negative result, no follow-up needed. C ommunication Needs: Communication Needs D oes the patient have a hearing impairment N o, D oes the patient have a vision impairment? Y es, I f yes, what is the vision impairment? G lasses, D oes the patient have a cognition impairment? N o. F all Risk: History H ave you had any falls with injury in the past year? N o, H ave you had two or more falls in the past year? N o. S DENIZ Questions: SDOH Questions I n the past year have you been worried about losing housing? N o, I n the past year have you or any family members you live with been unable to get any of the following when it was really needed? Check all that apply: N one. S ymptom(s): patient is a 70 yo male here for annual visit with review of recent labs and follow up of chronic issues. * ROS: G eneral/Constitutional: Change in appetite d enies. C hills d enies. F ever d enies. O phthalmologic: Blurred vision d enies. D ischarge d enies. P ain d enies. E NT: Decreased hearing d enies. S ore throat d enies.?Swollen glands d enies. E ndocrine: Cold intolerance d enies. E xcessive thirst d enies. H eat intolerance d enies. W eight loss d enies. R espiratory: Cough d enies. S hortness of breath at rest d enies. S hortness of breath with exertion d enies. W heezing d enies. C ardiovascular: Chest pain at rest d enies. C hest pain with exertion?denies. I rregular heartbeat d enies. S hortness of breath d enies. ? G astrointestinal: Abdominal pain d enies. C hange in bowel habits d enies. D iarrhea d enies. N ausea d enies. R ectal bleeding d enies. V omiting d enies . G enitourinary: Blood in urine d enies. D ifficulty urinating d enies. F requent urination d enies. M usculoskeletal: Painful joints d enies. W eakness d enies. ? S kin: Dry skin d enies. I tching d enies. D enies?Mole(s), changes in moles, new moles or any lesions of concern. D enies P hotosensitivity. R jaycee d enies. N eurologic: Dizziness d enies. F ainting d enies. H eadache?denies. * Medical History: * Surgical History: * Hospitalization/Major Diagno stic Procedure: * Family History: F ather: 93 yrs, diagnosed with Diabetes. M other: 94 yrs. 5 brother(s) . . all brothers are healthy 3 have Diabetes Father- cva Mother- old age, No pertinent family medical history, Denies mental health/substance abuse family history, No pertinent family medical history, No pertinent family medical history. * Social History: T obacco Use: T obacco Use/Smoking P atient is a n onsmoker, A dditional Findings: Tobacco Non-User C urrent non-smoker, currently using no form of tobacco. D rugs/Alcohol: A lcohol Screen D id you have a drink containing alcohol in the past year? Y es, H ow often did you have a drink containing alcohol in the past year? 2 to 4 times a month (2 points), H ow many drinks did you have on a typical day when you were drinking in the past year? 1 or 2 drinks (0 point), H ow often did you have 6 or more drinks on one occasion in the past year? N ever (0 point), P oints 2 , I nterpretation N egative. M iscellaneous: C affeine: yes, frequency:, more than 4 cups per day. Children: no. Community involvements: yes. Exercise: no. Housing: living with other priests. Living with: friends. Occupation: works full-time. Pets: none. Travel outside of the [place]: no. * Medications: T akingBD Pen Needle Jennifer U/F 32G X 4 MM Miscellaneous ONE PEN NEEDLE DAILY Farxiga 10 MG Tablet 1 tablet Orally Once a day metFORMIN HCl 1000 MG Tablet 1 tablet with meals Orally Twice a day Lantus SoloStar 100 UNIT/ML Solution Pen-injector as directed 20 units AM Mounjaro 5 MG/0.5ML Solution Pen-injector as directed Subcutaneous once a week Losartan Potassium 25 MG Tablet TAKE 1 TABLET BY MOUTH EVERY DAY Atorvastatin Calcium 40 MG Tablet TAKE 1 TABLET BY MOUTH EVERY DAY Taking BD Pen Needle Jennifer U/F 32G X 4 MM Miscellaneous ONE PEN NEEDLE DAILY Taking Farxiga 10 MG Tablet 1 tablet Orally Once a day Taking metFORMIN HCl 1000 MG Tablet 1 tablet with meals Orally Twice a day Taking Lantus SoloStar 100 UNIT/ML Solution Pen-injector as directed 20 units AM Taking Mounjaro 5 MG/0.5ML Solution Pen-injector as directed Subcutaneous once a week Taking Losartan Potassium 25 MG Tablet TAKE 1 TABLET BY MOUTH EVERY DAY Taking Atorvastatin Calcium 40 MG Tablet TAKE 1 TABLET BY MOUTH EVERY DAY Not-Taking/PRNCalcium 600 + D 600-200 MG-UNIT Tablet Orally Medication List reviewed and reconciled with the patientNot-Taking/PRN Calcium 600 + D 600-200 MG-UNIT Tablet Orally Medication List reviewed and reconciled with the patient * Allergies: N .K.D.A.yes[Allergies Verified] Objective: * Vitals: H t: 68, Wt: 225, BMI:34.21, BP:112/64, Wt-k.06. weight is down 4 pounds since 08-11-24. * P ast Orders: L ab:Microalbumin, Random (Order Date - 01/20/2025) (Collection Date & Time - 01/20/2025 07:15 AM) Value Reference Range Creatinine Urine 157.73 - mg/dL Microalbumin Urine 41.0 - mg/L Microalbum Creatinine Ratio Ur 25.9 <30 - ug/ mg cr L ab:Hemoglobin A1c (Order Date - 01/20/2025) (Collection Date & Time - 01/20/2025 07:15 AM) Value Reference Range Hemoglobin A1c % 6.5 H <6.0 - % Estimated Average Glucose 140 - mg/dL L ab:Complete Blood Count Auto Diff (Order Date - 01/20/2025) (Collection Date & Time - 01/20/2025 07:15 AM) Value Reference Range White Blood Count 6.3 4.8-10.8 - X10*3/uL Red Blood Count 4.95 4.60-5.80 - X10*6/uL Hemoglobin 15.6 14.0-18.0 - g/dl Hematocrit 46.1 42.0-52.0 - % Mean Corpuscular Volume 93.1 80.0-98.0 - fL Mean Corpuscular Hemoglobin 31.5 27.0-33.0 - pg Mean Corpuscular HGB Conc 33.8 31.0-36.0 - g/ dl Red Cell Distribution Width 12.5 11.0-16.0 - % Platelet Count 176 160-400 - X10*3/uL Mean Platelet Volume 10.7 9.4-12.4 - fL Neutrophils Percent Auto 62.0 45-73 - % Imm Gran Pct Auto 0.6 H 0.0-0.4 - % Lymphocytes Percent Auto 20.7 20-40 - % Monocytes Percent Auto 12.0 H 2-11 - % Eosinophils Percent Auto 4.1 H 0-4 - % Basophils Percent Auto 0.6 0-2 - % NRBC Pct Auto 0.0 0.0-0.2 - /100WBC Neutrophils Absolute Auto 3.9 2.0-8.3 - x10* 3/uL Imm Gran Abs Auto 0.04 H 0.00-0.03 - X10*3/uL Lymphocytes Absolute Auto 1.3 1.2-4.9 - X10* 3/uL Monocytes Absolute Auto 0.8 0.1-1.2 - X10*3/ uL Eosinophils Absolute Auto 0.3 0.0-0.4 - X10* 3/uL Basophils Absolute Auto 0.0 0.0-0.2 - X10*3/ uL NRBC Abs Auto 0.000 0.0-0.012 - X10*3/uL L ab:UA ClnCatch+Micro w/rflx Cult (Order Date - 01/20/2025) (Collection Date & Time - 01/20/2025 07:15 AM) Value Reference Range Color Urine Yellow - Appearance Urine Clear - PH 5.0 5.0-9.0 - Glucose Urine UA >=1000 A Negative - mg/dL Urine Blood Negative Negative - Specific [place] - Urine >= 1.030 H 1.005-1.025 - Urine Protein Trace Neg-Trace - mg/dL Urine Ketones Trace Negative - mg/dL Nitrite Urine Negative Negative - Leukocyte Esterase Urine Negative Negative - RBC Urine 0-2 0-2 - /HPF WBC Urine 0-5 0-5 - /HPF Squamous Epithelial Cell Urine 0-2 0-2 - /HP F Bacteria Urine None Seen None Seen - Hyaline Casts Urine 0-2 0-2 - /LPF L ab:Comprehensive [place]. Panel Fast (Order Date - 01/20/2025) (Collection Date & Time - 01/20/2025 07:15 AM) Value Reference Range Sodium 141 135-145 - mmol/L Bilirubin Total 0.9 0.0-1.0 - mg/dL Aspartate Amino Transferase 23 5-37 - U/L Alanine Aminotransferase 26 0-40 - U/L Total Protein 8.0 6.5-8.0 - g/dL Albumin Level 4.7 3.5-5.0 - g/dL Alkaline Phosphatase 52 39-117 - U/L Potassium 4.0 3.3-5.1 - mmol/L Chloride 104 96-108 - mmol/L Carbon Dioxide 25 22-29 - mmol/L Anion Gap 16 12-20 - Blood Urea Nitrogen 17 H 9-16 - mg/dL Creatinine 0.79 0.5-1.4 - mg/dL Estimated Glomerular Filt Rate > 60 - Glucose Fasting 90 60-99 - mg/dL Calcium 9.7 8.4-10.2 - mg/dL L ab:Lipid Panel (Order Date - 01/20/2025) (Collection Date & Time - 01/20/2025 07:15 AM) Value Reference Range Triglycerides 179 H <150 - mg/dL Cholesterol 159 <200 - mg/dL LDL Cholesterol Calculated 71 <100 - mg/dL HDL Cholesterol 53 >40 - mg/dL L ab:PSA,Total (Free>4and<10) (Order Date - 01/20/2025) (Collection Date & Time - 01/20/2025 07:15 AM) Value Reference Range PSA,Total (Free>4and<10) 0.51 0.00-4.00 - ng/ mL * Examination: G eneral Examination: GENERAL APPEARANCE: w ell developed, well nourished, in no acute distress. HEAD: n ormocephalic, atraumatic. EYES: p upils equal, round, reactive to light and accommodation, sclera non-icteric, abnormal left eye with ecchymosis from his recent surgery of his basal cell. EARS: n ormal. ORAL CAVITY: m ucosa moist. THROAT: c lear. NECK/THYROID: n fara supple, full range of motion, no cervical lymphadenopathy, no bruits. SKIN: w arm and dry, no suspicious lesions. HEART: r egular rate and rhythm, S1, S2 normal, no murmurs.? LUNGS: c lear to auscultation bilaterally. ABDOMEN: s oft, nontender, nondistended, bowel sounds present, normal, no organomegaly , no masses palpable. RECTAL EXAM: n ormal tone, no external hemorrhoids, no masses palpable, prostate normal, stool guaiac negative. MALE GENITOURINARY: c ircumcised, no testicular mass, testes descended bilaterally. EXTREMITIES: n o clubbing, cyanosis, or edema. NEUROLOGIC: n onfocal, motor strength normal upper and lower extremities, sensory exam intact. Assessment: * Assessment: 1. A nnual physical exam - Z00.00 (Primary) 2 . T ype 2 diabetes mellitus without complication, without long-term current use of insulin - E11.9 3 . P ure hypercholesterolemia - E78.00 4 . C olon cancer screening - Z12.11 5. D epression screening - Z13.31 Plan: * Treatment: 2. T ype 2 diabetes mellitus without complication, without long-term current use of insulin Continue Mounjaro Solution Auto-injector, 7.5 MG/0.5ML, as directed, Subcutaneous, once a week, 30 days, 4, Refills 5. Notes: good a1c. advised to exercise, stable, will continue current regiment 3. P ure hypercholesterolemia Notes: well controlled, will continue current regiment 4. C olon cancer screening L AB: Occult Blood, Stool, Guaiac (Collection Date & Time - 01/26/2025) N egative Value Reference Range O ccult Blood, Stool, Guaiac Neg Notes: guaiac negative??5.?Depression screening? Notes: negative screen?? * Procedure Codes: 8 2270 TEST FOR BLOOD, FECES * Preventive Medicine: Counseling: C are goal follow-up plan: C ounseling for abnormal BMI provided?Yes, A wilton Normal BMI Follow-up G iving encouragement to exercise. Diabetes Care Plan: P atient Lifestyle Goals N eeds to maintain diet control.?Treatment Goals A 1C< 7. B arriers N o specific barriers, doing well. E xpected Outcome m aintaining stable blood sugar levels within a target range. * Follow Up: 6 Months * * Sign off status: Completed true * Provider: Mauricio Waggoner MD Date: 0 01/26/2025 Generated for Leila thapa/Anette/Devantesmitting on: 0 04/21/2025 04:15 PM EDT History and Physical Notes * HPI (History of Present Illness) Category Sub-Category Detail Notes Category Not es Symptom(s) patient is a 70 yo male here for annual visit with review of recent labs and follow up of chronic issues. Depression Screening PHQ-9 Little inte rest or [...] had two or more falls in the year?: No Communication Needs Communication Needs Does the patient have a hearing impairment: No Does the patient have a vision impairmen t?: Yes If yes, what is the vision impairment?: Glasses Does the patient have a cognition impair ment?: No Examination Category Sub-Category Detail Notes Category Not es General Examination GENERAL APPEARANCE: well dev eloped, well nourished, in no acute distress HEAD: normocephalic, atrau matic EYES: pupils equal, round, reactive to light and accommodation, sclera non- icteric, abnormal left eye with ecchymosis from his recent surgery of his basal cell EARS: normal THROAT: clear NECK/THYROID: neck supple, [...] clubbing, cyanosi s, or edema MALE GENITOURINARY: circumcised, no test icular mass, testes descended bilaterally RECTAL EXAM: normal tone, no exte rnal hemorrhoids, no masses palpable, prostate normal, stool guaiac negative ORAL CAVITY: mucosa moist
--- OUTSIDE RECORDS SUMMARY | 2025-04-20 08:45 | XMS_ITS ---
Author Organization Fernando Waggoner MD Address [address] [place] [phone] Care Team Providers Care Rn Ortho Name Role Phone Fernando Waggoner Primary Care Provider Allergies No Known Allergies REASON FOR VISIT POISON SHANTEL right arm right eyelid Medications Medication SIG (Take, Route, Frequency, Duration) Notes Start Date End Date Status Farxiga 10 MG 1 tablet Orally Once a day Active Losartan Potassium 25 MG TAKE 1 TABLET B Y MOUTH EVERY DAY for 90 Active Atorvastatin Calcium 40 MG TAKE 1 TABLET BY MOUTH EVERY DAY for 90 Active metFORMIN HCl 1000 MG 1 tablet with meal s Orally Twice a day Active Lantus SoloStar 100 UNIT/ML as directed 20 units AM Acti ve BD Pen Needle Jennifer U/F 32G X 4 MM ONE PEN NEEDLE DAILY for 30 Active Calcium 600 + D 600-200 MG-UNIT Orally Not-Taking Mounjaro 7.5 MG/0.5ML as directed Subcut aneous once a week for 30 days Active predniSONE 10 MG as directed Orally 4 tabs for 4 days, 3 tabs for 4 days, 2 tbs for 4 days, and 1 tab for 4 days for 14 days 04/20/2025 Active Ofloxacin 0.3 % as directed 2 drops Ophthalmic 4 times per day for 10 days 04/20/2025 Active Vital Signs Blood pressure systolic 112 mm Hg 04/20/20 25 Blood pressure diastolic 66 mm Hg 025 Height 68 in 04/20/2025 Weight 228 lbs 04/20/2025 BMI 34.66 kg/m2 04/20/2025 Encounters Encounter Location Date Provider Diagnosis Fernando Waggoner MD [address] [place] [address] [place] [phone] 04/20/2025 Fernando Waggoner Poison shantel L23.7 and Hordeolum externum right upper eyelid H00.011 Assessments Encounter Date Diagnosis (ICD Code) Assessment Notes Treatment Notes Treatment Clinical Notes Section Notes 04/20/2025 Poison shantel (ICD-10 - L23.7) patient verbalized understnading of medication and directions for use 04/20/2025 Hordeolum externum right upper eyelid (ICD-10 - H00.011) patient verbalized understanding of medication and directions for use Plan Of Treatment Medication Medication Name Sig Start Date Stop Date Notes predniSONE 10 MG as directed Orally 4 tabs for 4 days, 3 tabs for 4 days, 2 tbs for 4 days, and 1 tab for 4 days for 14 days 04/20/2025 Ofloxacin 0.3 % as directed 2 drops Ophthalmic 4 times per day for 10 days 04/20/2025 Treatment Notes Assessment Notes Poison shantel patient verbalized u nderstnading of medication and directions for use Hordeolum externum right upper eyelid contreras sawyer verbalized understanding of medication and directions for use Next Appt Details Provider Name:Fernando nina, 07/27/2025 07:00:00 AM, [address] [place] [address], Suite [facility], [place], [place], [phone], Provider Name:Fernando nina, 08/03/2025 02:00:00 PM, [address] [place] [address], Suite [facility], [place], [place], [phone], Provider Name:Fernando nina, 01/22/2026 07:15:00 AM, [address] [place] [address], [address] [place] [address], [phone], Provider Name:Fernando Purdy ier, 01/29/2026 02:30:00 PM, [address] [facility], [address], [place], [phone], Progress Notes * Abbe BRIANDOB: (70 yo M)Acc No.[id number]:04/20/2025 Progress Notes Patient: Abbe ANGELES Provider: Mauricio Waggoner MD :1955 A ge:70 Y S ex:Male Date:04/20/2025 Address:[address] [place] [address] [id number] Subjective: * Chief Complaints: * 1 . POISON SHANTEL right arm right eyelid. * HPI: S ymptom(s): patient is a 70 yo male here with complaint of poison shantel right arm, right eyelid. * ROS: G eneral/Constitutional: Denies C hills. D enies F atigue. D enies F ever. D enies H eadache. E NT: Denies S ore throat. R espiratory: Denies C ough. D enies S hortness of breath at rest. D enies S hortness of breath with exertion. G astrointestinal: Denies D iarrhea. D enies N ausea. * Medical History: c olonoscopy 10/[address] Jovany Deleon. polyp was found. father had polyps. probably needs one in 5 years.07/16/24 colonoscopy pending path. * Medications: T aking BD Pen Needle Jennifer U/F 32G X 4 MM Miscellaneous ONE PEN NEEDLE DAILY , Taking Farxiga 10 MG Tablet 1 tablet Orally Once a day , Taking metFORMIN HCl 1000 MG Tablet 1 tablet with meals Orally Twice a day , Taking Lantus SoloStar 100 UNIT/ML Solution Pen-injector as directed 20 units AM , Taking Losartan Potassium 25 MG Tablet TAKE 1 TABLET BY MOUTH EVERY DAY , Taking Atorvastatin Calcium 40 MG Tablet TAKE 1 TABLET BY MOUTH EVERY DAY , Taking Mounjaro 7.5 MG/0.5ML Solution Auto-injector as directed Subcutaneous once a week , Not-Taking/PRN Calcium 600 + D 600-200 MG-UNIT Tablet Orally , Medication List reviewed and reconciled with the patient * Allergies: N .K.D.A. Objective: * Vitals: H t: 68, Wt: 228, BMI:34.66, BP:112/66, Wt-k.42. * Examination: G eneral Examination: GENERAL APPEARANCE: a lert, well hydrated, in no distress.? HEAD: n ormocephalic. EYES: R IGHT EYE swollen. SKIN: a bnormal with rash on forearm and the opposite face. Assessment: * Assessment: 1. P oison shantel - L23.7 (Primary) 2 . H ordeolum externum right upper eyelid - H00.011 Plan: * Treatment: 2. H ordeolum externum right upper eyelid Start Ofloxacin Solution, 0.3 %, as directed 2 drops, Ophthalmic, 4 times per day, 10 days, 10.? Notes: patient verbalized understanding of medication and directions for use * * The named appointment provid er may or may not be the originator of this progress note, and it is not deemed complete until electronically signed by the appointment provider. Sign off status: Pending * Provider: Mauricio Waggoner MD Date: 04/20/2025 Generated for Leila thapa/Anette/Liseitting on: 04/21/2025 04:16 PM EDT History and Physical Notes * HPI (History of Present Illness) Category Sub-Category Detail Notes Category Not es Symptom(s) patient is a 70 yo male here with complaint of poison shantel right arm, right eyelid Examination Category Sub-Category Detail Notes Category Not es General Examination GENERAL APPEARANCE: alert, w ell hydrated, in no distress HEAD: normocephalic EYES: RIGHT EYE swollen SKIN: abnormal with rash o n forearm and the opposite face
--- NOTE | 2025-04-21 15:29 | A.OFFVIS_ITS ---
Vital Signs 04/21/25 15:35 Height 5 ft 8 in Weight 223 lb 12.307 oz BMI 34.0 BP 128/68 Blood Pressure Location Lt brachial Position Sitting Pulse 94 Pulse Source Pulse Oximeter Pulse Oximetry (%) 95 Oxygen Delivery Method Room Air Intake Visit Reasons: DM Intake Note: Patient present today to follow up on Type 2 Diabetes Mellitus. Last Diabetic Eye exam: Last Spring 2023, has an appointment April 2025 Last Podiatry Visit: Does not see a Artist Model Random Glucose: 177 mg/dl Hgb A1C: 6.2% 04/21/2025 Dining Room Manager Required: No Accompanied by: Self / Same As Patient Allergies No Known Allergies Allergy (Verified 04/21/25 15:36) Medication List - Last Reconciled 04/21/25 by SHANNON Metzger atorvastatin 40 mg PO BEDTIME Bifidobacterium infantis (Align (B.infantis)) 4 mg PO DAILY blood sugar diagnostic (OneTouch Verio test strips) Three times a day coenzyme Q10 (Co Q-10) 10 mg PO DAILY axcokpab-iausbv-osapifun acid 500 mg-800 mcg- 50 mg (Collagen 1500 Plus C) 1 cap PO DAILY Farxiga (dapagliflozin propanediol) 10 mg PO DAILY NS flaxseed oil 1,000 mg PO DAILY guar gum grams insulin glargine (Lantus Solostar U-100 Insulin) 20 units (0.2 mL) subcut DAILY losartan 25 mg PO DAILY mecobalamin (vitamin B12) 1,000 mcg PO DAILY metformin 1,000 mg PO BID omega-3 fatty acids (Fish Oil Concentrate) 1,000 mg PO DAILY pen needle, diabetic (BD Ultra-Fine Micro Pen Needle) 2x daily pen needle, diabetic (BD Jennifer 2nd Gen Pen Needle) As directed prednisone 10 mg PO DIRECTED tirzepatide (Mounjaro) 7.5 mg subcut QWEEK [Vitamin C With Karen Hips 1 cap PO DAILY] vitamins A,C,M-nmry-qwupui 2,148 mcg-113 mg-45 mg-17.4mg (PreserVision AREDS) 2 tabs PO BID HPI Comments Details: This is a 70-year-old male with a past medical history of type 2 diabetes presenting for management. He was last seen by my colleague on 10/09/2024. He was initially diagnosed with type 2 diabetes in 1997. He has a family history of type 2 diabetes in his father and brother. Hemoglobin A1c is 6.2% today 04/21/2025. Current medications: Metformin 1000 mg twice a day Farxiga 10 mg daily Mounjaro 7.5 mg once a week Lantus 20 units daily Humalog 5 units before meals. He almost never uses this. He notices occasional diarrhea and constipation on metformin and Mounjaro. He started a probiotic and this seems to help. He is trying to follow a diabetic diet. He has a little bit of apple juice in the morning, but otherwise he avoid soda and sugary drinks. Past medications: [employer] stopped covering it. He tests his blood sugars twice a day. In the morning they are usually between 130-140. In the evening they are usually between 101 10. Denies hypoglycemia. Complications: None Hyperlipidemia is treated with atorvastatin. Hypertension is treated with losartan. He is a rash on his right forearm. He is being treated with Prednisone for poison shantel. ROS: Constitutional: No fevers, chills or unexplained weight loss Eyes: No vision changes Respiratory: No shortness of breath Cardiovascular: No chest pain Neurologic: No numbness or tingling in the extremities Endocrine: No cold or heat intolerance. No polyuria or polydipsia. Physical exam: Constitutional: Alert, in no distress. Neck: Supple, Full range of motion. No lymphadenopathy. No palpable thyroid masses. Respiratory: Clear to auscultation. Cardiovascular: S1 S2 regular. No murmurs. No carotid bruits. Skin: Erythematous papulovesicular rash on the right forearm and mild erythema on the right eyelid. No drainage or fluctuance. Extremities: Warm and well perfused. No clubbing, cyanosis or edema. [facility] Medical History (Updated 04/21/25 @ 16:10 by SHANNON Metzger) Controlled type 2 diabetes mellitus Melanoma Hypervitaminosis D HLD (hyperlipidemia) HTN (hypertension) T2DM (type 2 diabetes mellitus) Surgical History H/O colonoscopy History of appendectomy History of nasal surgery Family History Father Diabetes Brother Diabetes Social History Household Members: None Household Members Other:: lives alone Are you a primary palliative care nurse practitioner to a significant other at home: No Do you presently have visiting nurse or other home services: No Alcohol intake: current Patient Tobacco Use Status: Never used Tobacco Physical Exam Vital Signs: Last Vital Signs Pulse 94 04/21/25 15:35 BP 128/68 04/21/25 15:35 Pulse Ox 95 04/21/25 15:35 Oxygen Delivery Method Room Air 04/21/25 15:35 BMI result Body Mass Index 34.0 Results AMB Hemoglobin A1c AMB Hemoglobin A1c 6.2 % Last Edit by RADHA Jose on 04/21/25 16:14 Results Reviewed Results Reviewed: Laboratory Last Values Glucose (Clinic) 177 mg/dL (60-115) H 04/21/25 15:43 Laboratory Tests 01/20/25 07:15 Plt Count 176 Creatinine 0.79 Estimated GFR > 60 Hemoglobin A1c % 6.5 H AST 23 ALT 26 Triglycerides 179 H Cholesterol 159 LDL Cholesterol, Calc 71 HDL Cholesterol 53 Urine Creatinine 157.73 Urine Microalbumin 41.0 Microalb/Creat Ratio 25.9 Assessment & Plan Assessment & Plan (1) Controlled type 2 diabetes mellitus: Code(s): E11.9 - Type 2 diabetes mellitus without complications Category: Medical Plan In summary this is a 70-year-old male with controlled type 2 diabetes. Lifestyle modifications reviewed with the patient. Recommended decreasing carbohydrates and sugars. Reviewed portion sizes. Continue Farxiga 10 mg daily Mounjaro 7.5 mg once a week Lantus 20 units daily He does not need to administer Humalog unless he is going out for a large meal or indulging in sweets. Advised patient that if he develops low blood sugars he should decrease Lantus by 2-4 units and contact the office. Eye exam is scheduled in April. Continue treatment for hyperlipidemia and hypertension. He sees endocrinology twice per year and PCP twice per year. Follow up in 6 months for diabetic management. Orders: Orders AMB Hemoglobin A1c Today E11.9 - Type 2 diabetes mellitus without complications Medications: Changed From insulin glargine (Lantus Solostar U-100 Insulin) 18 units (0.18 mL) subcut DAILY 15 mL 0RF To insulin glargine (Lantus Solostar U-100 Insulin) 20 units (0.2 mL) subcut DAILY 15 mL 0RF Coding Level of Care Code Est Pt Level 4 (50668) Complex EM visit Add On G2211 Diagnoses Controlled type 2 diabetes mellitus E11.9
[2025-04-21 15:35] VITALS: BP 128/68; PULSE 94; O2SAT 95; BMI 34.0
[2025-04-21 15:48] LABS: Glucose, Whole Blood 177 mg/dL (60-115)
--- OUTSIDE RECORDS SUMMARY | 2025-04-21 16:15 | XMS_ITS | Patient Health Record ---
Author Organization [facility] MAIN OFFICE Address [address] [place] [id number] Care Team Providers Care Technical Maintenance Technician Name Role Phone MELONY FLOR Primary Care Provider [phone] Melony Flor MD Unavailable Unavailable Reason For Referral No Information Plan Of Treatment Pending Test Test Name Order Date COVID-19 PCR (In House) 05/04/2020 Insurance Providers Payer Name Payer Address Payer Phone Subscriber Number Group Number Insured Name Patient Relationship to Insured Coverage Start Date Coverage End Date [employer] [address] [place], [place] [id number] Abbe Bah Self - patient is the insured
--- OUTSIDE RECORDS SUMMARY | 2025-04-21 16:15 | XMS_ITS | Patient Health Record ---
Author Organization Fernando Waggoner MD Address [address] [place] [phone] Care Team Providers Care Assistant Food Service Director Name Role Phone Fernando Waggoner Primary Care Provider [phone] Allergies No Known Allergies Results Component Value Reference Range Notes Liver Panel Reviewed date:08/04/2024 12:51:13 PM Interpretation: Performing Lab:[facility], [address] [place] [phone] Notes/Report: Bilirubin Total 0.9 0.0-1.0 mg/dL Bilirubin Direct 0.3 0.0-0.5 mg/dL Aspartate Amino Transferase 36 5-37 U/L Alanine Aminotransferase 50 0-40 U/L Total Protein 7.4 6.5-8.0 g/dL Albumin Level 4.2 3.5-5.0 g/dL Alkaline Phosphatase 50 39-117 U/L Glucose Fasting Reviewed date:08/04/2024 12:51:21 PM Interpretation: Performing Lab:[facility], [address] [place] [phone] Notes/Report: Glucose Fasting 97 60-99 mg/dL Lipid Panel with Reflex Reviewed date:08/04/2024 12:51:41 PM Interpretation: Performing Lab:[facility], [address] [place] [phone] Notes/Report: Triglycerides 194 <150 mg/dL Desirable Triglyceride: [...] A1c Reviewed date:08/04/2024 12:51:04 PM Interpretation: Performing Lab:[facility], [address] [place] [phone] Notes/Report: Hemoglobin A1c % 6.6 <6.0 % [...] average glucose, using the formula of the Q9X-Xaocqjj Average Glucose study (ADAG), Diabetes Care, Vol.31,#8, 2007 Complete Blood Count Auto Di ff Reviewed date:01/20/2025 12:38:04 PM Interpretation: Performing Lab:[facility], [address] [place] [phone] Notes/Report: White Blood Count 6.3 4.8-10.8 X10*3/uL [...] NRBC Abs Auto 0.000 0.0-0.012 X10*3/uL Comprehensive [place]. Panel Fa st Reviewed date:01/20/2025 12:45:17 PM Interpretation: Performing Lab:[facility], [address] [place] [phone] Notes/Report: Sodium 141 135-145 mmol/L Potassium 4.0 [...] Panel Reviewed date:01/20/2025 12:33:10 PM Interpretation: Performing Lab:[address] [phone] Notes/Report: Triglycerides 179 <150 mg/dL Desirable Triglyceride: [...] (Free>4and<10) Reviewed date:01/20/2025 12:32:23 PM Interpretation: Performing Lab:[facility], [address] [place] [phone] Notes/Report: PSA,Total (Free>4and<10) 0.51 0.00-4.00 ng/mL A [...] Random Reviewed date:01/20/2025 12:32:32 PM Interpretation: Performing Lab:[address] [phone] Notes/Report: Creatinine Urine 157.73 Microalbumin Urine 41.0 Microalbum/Creatinine Ratio Ur 25.9 <30 ug/mg cr Albumin/Creatinine Ratio Reference Ranges: Normal: < 30 ug/mg creatinine Microalbuminuria: 30 - 300 ug/mg creatinine Clinical Albuminuria: > 300 ug/mg creatinine Hemoglobin A1c Reviewed date:01/20/2025 12:32:14 PM Interpretation: Performing Lab:[address] [phone] Notes/Report: Hemoglobin A1c % 6.5 <6.0 % [...] average glucose, using the formula of the L7G-Bbttwgm Average Glucose study (ADAG), Diabetes Care, Vol.31,#8, Mar. 2007 UA ClnCatch+Micro w/rflx Cul t Reviewed date:01/20/2025 12:36:20 PM Interpretation: Performing Lab:[address] [phone] Notes/Report: Urine, Clean Catch Color Urine Yellow Appearance Urine Clear PH 5.0 5.0-9.0 Glucose Urine UA >=1000 Negative mg/dL Urine Blood Negative Negative Specific [place] - Urine >= 1.030 1.005-1.025 Urine Protein Trace Neg-Trace mg/dL Urine Ketones Trace Negative mg/dL Nitrite Urine Negative Negative Leukocyte Esterase Urine Negative Negative RBC Urine 0-2 0-2 /HPF WBC Urine 0-5 0-5 /HPF Squamous Epithelial Cell Urine 0-2 0-2 /HPF Bacteria Urine None Seen None Seen Hyaline Casts Urine 0-2 0-2 /LPF Occult Blood, Stool, Guaiac Reviewed date:01/26/2025 03:03:46 PM Interpretation:Negative Performing Lab: Notes/Report: Negative Occult Blood, Stool, Guaiac Neg Glucose, Whole Blood Reviewed date:07/16/2024 04:59:15 PM Interpretation: Performing Lab:[facility], [address] [place] [phone] Notes/Report: Glucose, Whole Blood 141 60-115 mg/dL METER # : [id number] Pathology Reviewed date:07/18/2024 04:34:52 PM Interpretation: Performing Lab:[facility], [address] [place] [phone] Notes/Report: Name: Abbe Bah Age/Sex: 69/M : 1955 Unit#: [id number] Attend Dr: Lance Cabello MD Re07/16/24 Status: [facility] Location: [facility] Disch: SPEC : [id number] RECD: 07/16/24 STATUS: ALEC GUTIERREZ NUM: [id number] LUKE: 07/16/[address]: Lance Cabello MD [...] To: Fernando Waggoner MD [facility] [address] [place] [address] [place] [id number] CONTINUED ON NEXT PAGE Name: Abbe Bah Age/Sex: 69/M : 1955 Unit#: [id number] Guy Dr: Lance Cabello MD Re07/16/24 Status: [facility] Location: [facility] Disch: SPEC : [id number] RECD: 07/16/24-9958 STATUS: ALEC GUTIERREZ NUM: [id number] LUKE: 07/16/24-[address]: Lance Cabello MD ENTERED: 07/16/24-1442 SP TYPE: Surgical OTHR DR: Fernando Waggoner MD ORDERED: HE Stain/6, Gross Micro L4/2 Copies To: (Continued) Lance Cabello MD [address] [place] [address] Signed (signature on file) Aniket Reyna MD 07/18/24 1138 END OF REPORT Wei Cox Reviewed date:08/04/2024 12:50:56 PM Interpretation: Performing Lab:[facility], [address] [place] [phone] Notes/Report: Wei Cox See Note Specimen held untested for 24 hours; Call to request Chemistry testing. Glucose, Whole Blood Reviewed date:10/09/2024 04:50:21 PM Interpretation: Performing Lab:[facility], [address] [place] [phone] Notes/Report: Glucose, Whole Blood 125 60-115 mg/dL METER #: [id number] Testing performed in the [facility] , [address], [place]. Glucose, Whole Blood (Not ye t reviewed by provider) Interpretation: Performing Lab:[facility], [address] [place] [phone] Notes/Report: Glucose, Whole Blood 177 60-115 mg/dL METER #: [id number] Testing performed in the [facility], [facility]. Reason For Referral No Information Medications Medication SIG (Take, Route, Frequency, Duration) Notes Start Date End Date Status BD Pen Needle Jennifer U/F 32G X 4 MM ONE PEN NEEDLE DAILY for 30 Active Farxiga 10 MG 1 tablet Orally Once a day Active Calcium 600 + D 600-200 MG-UNIT Orally Not-Taking Mounjaro 7.5 MG/0.5ML as directed Subcut aneous once a week for 30 days Active predniSONE 10 MG as directed Orally 4 tabs for 4 days, 3 tabs for 4 days, 2 tbs for 4 days, and 1 tab for 4 days for 14 days 04/20/2025 Active Losartan Potassium 25 MG TAKE 1 TABLET B Y MOUTH EVERY DAY for 90 Active Ofloxacin 0.3 % as directed 2 drops Ophthalmic 4 times per day for 10 days 04/20/2025 Active Atorvastatin Calcium 40 MG TAKE 1 [...] Administered pt was given the vaccine at [facility] in [place]. Tetanus Unknown 10/01/2018 Administered Fluarix Quadrivalent IM [...] Problem Status W/U Status Risk Notes Problem 138821598 Pure hypercholesterolemia (E78.00) Active confirmed Problem 463370005 BMI 34.0-34.9,ad ult (Z68.34) Active confirmed Problem 022200415 Type 2 diabetes mellitus without complication, without long-term current use of insulin (E11.9) Active confirmed Problem 299469874 BMI 33.0-33.9,ad ult (Z68.33) Active confirmed Problem 759865428 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) Active confirmed Vital Signs Blood pressure diastolic 66 mm Hg 04/20/2025 Height 68 in 04/20/2025 Blood pressure systolic 112 mm Hg 04/20/2025 Weight 228 lbs 04/20/2025 BMI 34.66 kg/m2 04/20/2025 Procedures Procedure Date Ordered Date Performed Result Body Sit e Colonoscopy, Screening 07/16/2024 07/16/2024 pending path Encounters Encounter Location Date Provider Diagnosis Fernando Waggoner MD [address] [place] [id number] 08/04/2024 Fernando Waggoner Type 2 diabetes alvaro itus without complication, without long-term current use of insulin E11.9 ; Encounter for immunization Z23 and Pure hypercholesterolemia E78.00 Fernando Waggoner MD [address] [place] [id number] 01/20/2025 Fernando Bombardier Blood tests for rout ine general physical examination Z00.00 ; Type 2 diabetes mellitus without complication, without long-term current use of insulin E11.9 and Pure hypercholesterolemia E78.00 Fernando Waggoner MD [address] [place] [id number] 04/20/2025 Fernando Waggoner Poison shantel L23.7 and Hordeolum externum right upper eyelid H00.011 Fernando Waggoner MD [address] [place] [id number] 08/11/2024 Fernando Waggoner Type 2 diabetes alvaro itus without complication, without long-term current use of insulin E11.9 and Pure hypercholesterolemia E78.00 Fernando Waggoner MD [address] [facility] [address] [id number] 10/10/2024 Fernando Waggoner Viral URI J06.9 Fernando Waggoner MD [address] [place] [address] [id number] 01/26/2025 Fernando Waggoner Type 2 diabetes alvaro itus without complication, without long-term current use of insulin E11.9 ; Annual physical exam Z00.00 ; Pure hypercholesterolemia E78.00 ; Colon cancer screening Z12.11 and Depression screening Z13.31 Assessments Encounter Date Diagnosis (ICD Code) Assessment Notes Treatment Notes Treatment Clinical Notes Section Notes 08/04/2024 Type 2 diabetes mellitus without complication, without long-term current use of insulin (ICD-10 - E11.9) 08/04/2024 Encounter for immunization (ICD-10 - Z23) 01/20/[address] ine general physical examination (ICD-10 - Z00.00) 04/20/2025 Poison shantel (ICD-10 - L23.7) patient verbalized understnading of medication and directions for use 04/20/2025 Hordeolum externum right upper eyelid (ICD-10 - H00.011) patient verbalized understanding of medication and directions for use 08/11/2024 Type 2 diabetes mellitus without complication, without long-term current use of insulin (ICD-10 - E11.9) doing well. encouraged to exercise, will continue current regiment 08/11/2024 Pure hypercholesterolemia (ICD-10 - E78.00) stable, will contiue current regiment 10/10/2024 Viral URI (ICD-10 - J06.9) tylenol and fluids 01/26/2025 Type 2 diabetes mellitus without complication, without long-term current use of insulin (ICD-10 - E11.9) good a1c. advised to exercise, stable, will continue current regiment 01/26/2025 Annual physical exam (ICD-10 - Z00.00) labs reviewed and discussed with patient 08/04/2024 Pure hypercholesterolemia (ICD-10 - E78.00) 01/20/2025 Type 2 diabetes mellitus without complication, without long-term current use of insulin (ICD-10 - E11.9) 01/26/2025 Pure hypercholesterolemia (ICD-10 - E78.00) well controlled, will continue current regiment 01/20/2025 Pure hypercholesterolemia (ICD-10 - E78.00) 01/26/2025 Colon cancer screeni ng (ICD-10 - Z12.11) guaiac negative 01/26/2025 Depression screening (ICD-10 - Z13.31) negative screen Plan Of Treatment Pending Test Test Name Order Date Electrocardiogram (EKG) 08/16/2017 Glucose, Whole Blood 04/21/2025 Next Appt Details Provider Name:Fernando meadowsr, 07/27/2025 07:00:00 AM, [address] [place] [address], [address], [phone], Provider Name:Fernando meadowsr, 08/03/2025 02:00:00 PM, [address] [place] [address], [phone], Provider Name:Fernando meadowsr, 01/22/2026 07:15:00 AM, [address] [place] [address], [address], [phone], Provider Name:Fernando meadowsr, 01/29/2026 02:30:00 PM, [address] [place] [address], [id number], Insurance Providers Payer Name Payer Address Payer Phone Subscriber Number Group Number Insured Name Patient Relationship to Insured Coverage Start Date Coverage End Date [facility] [address] [place], [place] [phone] [id number] Abbe Bah Self - patient is the insured Medical (General) History Medical History History ICD Code colonoscopy 10/[address] Soumya Deleon. polyp was found. father had polyps. probably needs one in 5 years.07/16/24 colonoscopy pending path
--- OUTSIDE RECORDS SUMMARY | 2025-04-21 16:16 | XMS_ITS | Patient Health Record ---
Author Organization [facility] Address [address] [place] [address] Care Team Providers Care Wet Cleaner Machine Name Role Phone Edilson LUI, Fernando Primary Care Provider Lance Mohamud Jr Unavailable Allergies No Known Allergies Results Component Value Reference Range Notes Glucose, Whole Blood Reviewed date:07/16/2024 04:28:37 PM Interpretation: Performing Lab:[facility], [address] [place] [id number] Notes/Report: Glucose, Whole Blood 141 60-115 mg/dL METER # : [id number] Pathology Reviewed date:07/23/2024 08:28:44 AM Interpretation: Performing Lab:[facility], [address] [place] [id number] Notes/Report: Reason For Referral No Information Medications Medication SIG (Take, Route, Frequency, Duration) Notes Start Date End Date Status Fish Oil + D3 2502-8347 MG-UNIT 1 capsule Orally Once a day [...] 1400 MG as directed Orally 06/23/2024 Active Immunizations Vaccine Route Administration Date Status Comme nts Influenza Unknown 06/23/2024 Refused Social History Tobacco Use: Social History Observation [...] Never (0 point) Points 3 Interpretation Negative Problems Problem Type SNOMED Code ICD Code Onset Dates Problem Status W/U Status Risk Notes Problem 517402477 Colon cancer screening (Z12.11) Active confirmed Problem [id number] Encounter for other preprocedural examination (Z01.818) Active confirmed Problem [id number] [facility] (current) use of oral hypoglycemic drugs (Z79.84) Active confirmed Vital Signs Temperature 99.3 degrees Fahrenheit 06/23/2024 Blood pressure diastolic 00 mm Hg 06/23/2024 Height 5 ft 8 in in 06/23/2024 Blood pressure systolic 000 mm Hg 06/23/2024 Weight 225 lb 8 oz lbs 06/23/2024 BMI 34.28 kg/m2 06/23/2024 Encounters Encounter Location Date Provider Diagnosis [facility] Outpatient [address] [place] [phone] 07/16/2024 Lance Cabello Jr Colon cancer screening Z12.11 and Personal history of colonic polyps Z86.0100 [facility] [address] [place] [address] 06/23/2024 Lance Cabello Jr Colon cancer screening Z12.11 ; Encounter for other preprocedural examination Z01.818 and [facility] (current) use of oral hypoglycemic drugs Z79.84 [facility] [address] [place] [address] 07/23/2024 Lance Cabello Jr Assessments Encounter Date Diagnosis (ICD Code) Assessment Notes Treatment Notes Treatment Clinical Notes Section Notes 07/16/2024 Colon cancer screening (ICD-10 - Z12.11) 07/16/2024 Personal history of colonic polyps (ICD-10 - Z86.0100) 06/23/2024 Colon cancer screening (ICD-10 - Z12.11) Colonoscopy material was printed We discussed colonoscopy today. We discussed her symptoms as of the procedure today. He understands these and agrees to proceed. This will be scheduled at his convenience. He will stop supplements and Mounjaro one week before the procedure, and Farxiga 3 days before the procedure. He will also stop metformin the day before the procedure. 06/23/2024 Encounter for other preprocedural examination (ICD-10 - Z01.818) We discussed colonoscopy today. We discussed her symptoms as of the procedure today. He understands these and agrees to proceed. This will be scheduled at his convenience. He will stop supplements and Mounjaro one week before the procedure, and Farxiga 3 days before the procedure. He will also stop metformin the day before the procedure. 06/23/2024 [facility] (current) use of oral hypoglycemic drugs (ICD-10 - Z79.84) We discussed colonoscopy today. We discussed her symptoms as of the procedure today. He understands these and agrees to proceed. This will be scheduled at his convenience. He will stop supplements and Mounjaro one week before the procedure, and Farxiga 3 days before the procedure. He will also stop metformin the day before the procedure. Plan Of Treatment Future Test Test Name Order Date COLONOSCOPY 06/23/2024 Insurance Providers Payer Name Payer Address Payer Phone Subscriber Number Group Number Insured Name Patient Relationship to Insured Coverage Start Date Coverage End Date [facility] [address] [place], [place] [id number] [phone] [id number] SNEHAL, FATHER MTAT Self - patient is the insured Medical (General) History Medical History History ICD Code Diabetes mellitus type 2 Hypertension Hyperlipidemia Colon polyps, colonoscopy 2016, five-yea r followup Melanoma left shoulder Surgical History Surgery Date(Month/Year) acute appendicitis 2021 deviated septum 1991
--- OUTSIDE RECORDS SUMMARY | 2025-04-21 16:16 | XMS_ITS | Patient Health Record ---
Author Organization [facility] Masha Leong Address [address] [facility] [place] [address] Care Team Providers Care Verification Engineer Name Role Phone Fernando Waggoner MD Primary Care Provider Jenny Garcia Unavailable [phone] Allergies No Known Allergies Results Component Value Reference Range Notes HEMOGLOBIN A1C (GLYCOHEMOGLO BIN) Reviewed date:10/22/2024 08:35:42 AM Interpretation: Performing Lab: Notes/Report: HEMOGLOBIN A1C % (HH) 6.6 HEMOGLOBIN A1C (GLYCOHEMOGLO BIN) Reviewed date:03/17/2025 08:45:47 AM Interpretation: Performing Lab: Notes/Report: HEMOGLOBIN A1C % (HH) 6.5 Reason For Referral No Information Medications Medication SIG (Take, Route, Frequency, Duration) Notes Start Date End Date Status Mounjaro 2.5 MG/0.5ML as directed Subcutaneous Active Tresiba Active Farxiga 10 MG 1 tablet Orally Once a day Active Align Active Atorvastatin Calcium 20 MG 1 tablet Orally Once a day Active Flaxseed Oil 1400 MG as directed Orally Active Ketoconazole 2 % 1 application Apply a thin layer to externally to feet, even between toes Twice a day; Duration: 30 days Active Fish Oil 1000 MG 1 capsule Orally Thr ee times a day Active Super B Complex Acti ve Fiber Active Losartan Potassium 25 MG 1 tablet Orally Once a day Active PreserVision AREDS A ctive metFORMIN HCl 1000 MG 1 tablet with a me al Orally Once a day Active CoQ-10 Active Vitamin C 1000 MG 1 tablet Orally Once a day Active Immunizations Vaccine Route Administration Date Status Comme nts Influenza Unknown 04/27/2024 Administered Social History Tobacco Use: Social History Observation Description Date Details (start date - stop date) Never Smoker NA - NA Tobacco use other than smoking: Question Answer Notes Are you an other tobacco user? No Tobacco Control (Standard) Question Answer Notes Tobacco use: Nonsmoker Additional Findings: Tobacco non-user Current no nsmoker AUDIT-C (Standard) Question Answer Notes Did you have a drink containing alcohol in the p ast year? No Points 0 Interpretation Negative Problems Problem Type SNOMED Code ICD Code Onset Dates Problem Status W/U Status Risk Notes Problem Type 2 diabetes mellitus without complication (E11.9) Active confirmed Vital Signs Blood pressure diastolic 77 mm Hg 03/17/2025 Height 5ft8in in 03/17/2025 Blood pressure systolic 120 mm Hg 03/17/2025 Weight 225 lbs 03/17/2025 BMI 34.21 kg/m2 03/17/2025 Encounters Encounter Location Date Provider Diagnosis [address] [address] 10/22/2024 Jenny Mckeon Pain in right toe(s) M79.674 ; Tinea unguium B35.1 ; Pain in left toe(s) M79.675 ; Type 2 diabetes mellitus without complication E11.9 ; Other hammer toe(s) (acquired), right foot M20.41 and Other hammer toe(s) (acquired), left foot M20.[address] [address] 12/30/2024 Jenny Mckeon Tinea unguium B35.1 ; Type 2 diabetes mellitus without complication E11.9 ; Pain in right toe(s) M79.674 and Pain in left toe(s) M79.[address] [address] 03/17/2025 Jenny Perica Type 2 diabetes mellitus without complication E11.9 ; Tinea pedis of both feet B35.3 ; Tinea unguium B35.1 ; Pain in right toe(s) M79.674 and Pain in left toe(s) M79.675 Assessments Encounter Date Diagnosis (ICD Code) Assessment Notes Treatment Notes Treatment Clinical Notes Section Notes 10/22/2024 Tinea unguium (ICD-10 - B35.1) 10/22/2024 Pain in right toe(s) (ICD-10 - M79.674) 12/30/2024 Tinea unguium (ICD-10 - B35.1) 12/30/2024 Type 2 diabetes mellitus without complication (ICD-10 - E11.9) 03/17/2025 Type 2 diabetes mellitus without complication (ICD-10 - E11.9) 03/17/2025 Tinea pedis of both feet (ICD-10 - B35.3) Patient Educated with: ATHELETE .pdf (ATHELETE .pdf) 03/17/2025 Tinea unguium (ICD-10 - B35.1) 12/30/2024 Pain in right toe(s) (ICD-10 - M79.674) 10/22/2024 Pain in left toe(s) (ICD-10 - M79.675) 12/30/2024 Pain in left toe(s) (ICD-10 - M79.675) 10/22/2024 Type 2 diabetes mellitus without complication (ICD-10 - E11.9) 03/17/2025 Pain in right toe(s) (ICD-10 - M79.674) 03/17/2025 Pain in left toe(s) (ICD-10 - M79.675) 10/22/2024 Other hammer toe(s) (acquired), right foot (ICD-10 - M20.41) Patient Educated with: DIABETIC FOOT CARE INSTRUCTIONS.p df (DIABETIC FOOT CARE INSTRUCTIONS.p df) 10/22/2024 Other hammer toe(s) (acquired), left foot (ICD-10 - M20.42) 12/30/2024 Other Plan Of Treatment Next Appt Details Provider Name:Jenny brantley, 05/26/2025 08:30:00 AM, [address] [facility], [place], [address], Insurance Providers Payer Name Payer Address Payer Phone Subscriber Number Group Number Insured Name Patient Relationship to Insured Coverage Start Date Coverage End Date [facility] [id number] [place] [address] [phone] [id number] Twohig, Abbe Self - patient is the insured 2 Medical (General) History Medical History History ICD Code type II diabetes Surgical History Surgery Date(Month/Year) acute appendicitis deviated septum repair
== END 2025-04-21 16:15 | disposition home or self-care (01) ==
LOC: HO.ENCR 15:23
PROVIDERS: PCP Internal Medicine; Visit Provider Physician Assistant Medical
DX: E11.9 Type 2 diabetes mellitus without complications (principal)

== ENCOUNTER → 2025-04-21 15:22 | Outpatient (BNVA) | payer BC, SELFPAY | PROVIDERS: PCP Internal Medicine; Visit Provider Physician Assistant Medical | DX: E11.9 Type 2 diabetes mellitus without complications (principal); Z79.4 Long term (current) use of insulin | CPT/HCPCS: 82947; 83036 ==

== ENCOUNTER 2025-07-27 10:26 | Outpatient (REF) | payer BC, SELFPAY ==
[2025-07-27 11:10] LABS: Alanine Aminotransferase 51 U/L (0-40); Albumin Level 4.6 g/dL (3.5-5.0); Alkaline Phosphatase 52 U/L (39-117); Aspartate Amino Transferase 33 U/L (5-37); Cholesterol 166 mg/dL (<200); HDL Cholesterol 48 mg/dL (>40); Total Protein 7.4 g/dL (6.5-8.0); Triglycerides 279 mg/dL (<150)
== END 2025-07-27 10:27 | disposition home or self-care (01) ==
LOC: HO.LNP 10:26
PROVIDERS: Visit Provider Internal Medicine
DX: E78.00 Pure hypercholesterolemia, unspecified (principal); E11.9 Type 2 diabetes mellitus without complications
CPT/HCPCS: 80061; 80076; 82947; 83036